=== PATIENT | male | born 1955 | race Caucasian/White ===

== ENCOUNTER 2019-07-29 08:45 | Inpatient (IN) | payer OTHER ==
[~2019-07-29] VITALS: Ht 177.8 cm; Wt 98.7 kg
[~2019-07-29 08:45] MED LIST: ASPI325 PO; ATOR40TA PO; INSULANPEN SC; METF500C PO; Plavix75 MG PO; SYNTHROID175 MCG PO
[2019-07-29 09:07] LABS: BASOPHILS ABSOLUTE AUTO 0.07 K/mm3 (0.00-0.23); BASOPHILS PERCENT AUTO 1 % (0-2); EOSINOPHILS ABSOLUTE AUTO 0.14 K/mm3 (0.00-0.68); EOSINOPHILS PERCENT AUTO 2 % (0-6); Hematocrit 42.8 % (37.0-53.0); Hemoglobin 14.1 g/dL (13.5-17.5); IMMATURE GRAN ABSOLUTE AUTO 0.02 K/mm3 (0.00-0.10); IMMATURE GRAN PERCENT AUTO 0 % (0-1); LYMPHOCYTES ABSOLUTE AUTO 1.18 K/mm3 (0.84-5.20); LYMPHOCYTES PERCENT AUTO 12 % (21-46); MONOCYTES ABSOLUTE AUTO 0.43 K/mm3 (0.16-1.47); MONOCYTES PERCENT AUTO 5 % (4-13); Mean Corpuscular HGB 29.1 pg (26.0-34.0); Mean Corpuscular HGB Conc 32.9 g/dL (31.5-36.5); Mean Corpuscular Volume 88 fL (80-100); Mean Platelet Volume 10.2 fL (9.1-12.4); NEUTROPHILS ABSOLUTE AUTO 7.69 K/mm3 (1.96-9.15); NEUTROPHILS PERCENT AUTO 81 % (41-73); Platelet Count 236 K/mm3 (150-400); RDW Coefficient Variation 13.2 % (11.7-14.2); RDW Standard Deviation 43.2 fL (35.1-46.3); Red Blood Cell Count 4.85 M/mm3 (4.30-5.90); White Blood Cell Count 9.53 K/mm3 (4.00-11.30)
[2019-07-29 09:27] LABS: Alanine Aminotransfer (ALT/SGP 45 U/L (12-78); Albumin, Blood 3.7 g/dL (3.4-5.0); Albumin/Globulin Ratio 1.1 (0.8-1.8); Alk Phos 118 U/L (50-136); Anion Gap 5 mmol/L (6-16); Aspartate Aminotrans (AST/SGOT 30 U/L (12-37); Bilirubin, Total 0.4 mg/dL (0.1-1.0); Blood Urea Nitrogen 19 mg/dL (8-24); Bun/Creatinine Ratio 19.8 (12.0-20.0); CO2, Blood 30 mmol/L (21-32); Calcium, Blood 8.9 mg/dL (8.5-10.1); Chloride, Blood 101 mmol/L (98-108); Creatinine, Blood 0.96 mg/dL (0.60-1.20); Globulin, Blood 3.5 g/dL (2.2-4.0); Glomerular Filtration Rate >60 (60-); Glucose, Blood 307 mg/dL (70-99); Potassium, Blood 3.9 mmol/L (3.5-5.5); Sodium, Blood 136 mmol/L (136-145); Total Protein, Blood 7.2 g/dL (6.4-8.2)
[2019-07-29] MEDS ORDERED: Vitamin D400 UNI2 PO (09:28)
[2019-07-29 09:41] LABS: Troponin I 0.568 ng/mL (0.000-0.040)
[2019-07-29 10:34] LABS: International Normalized Ratio 0.92; Prothrombin Time Results 9.8 Sec (9.7-11.5)
--- NOTE | 2019-07-29 13:30 | NUR ---
REPORT RECIEVED FROM [facility] RN. PT ARRIVED TO PCU 4 VIA BED WITH HEART CENTER STAFF AT BEDSIDE. PER REPORT PATIENT HAS MULTI VESSEL DISEASE AND WILL NEED TO BE COBRA TRANSFERRED TO [facility]. DR. DAILEY IS WORKING ON TRANSFER ORDERS AND WE HAVE DR. ALVARENGA AN ACCEPTING MD. PT IS ALERT AND OX3. PT DENIES PAIN AT THIS TIME. TELEMETRY PLACED. PT HAS RIGHT RADIAL SITE WITH TR BAND IN PLACE. PER REPORT 11 CC AIR IN THE BAND. SITE LOOKS GOOD. NO OOZING NOTED. CAP REFILL BRISK. GOOD PLETH. PT DENIES N/T. VSS. WILL CONTINUE TO MONITOR.
[2019-07-29 13:35] LABS: Cholesterol 297 mg/dL (50-200); HDL Cholesterol 33 mg/dL (>39); LDL/HDL RATIO Unable to Calculate; Low Density Lipoprotein Chol Unable to Calculate mg/dL (0-110); Triglycerides 849 mg/dL (30-160); Very Low Density Lipoprot Chol Unable to Calculate mg/dL (6-32)
[2019-07-29 13:47] LABS: LDL Direct Measurement 134 mg/dL (0-130)
--- NOTE | 2019-07-29 14:00 | NUR ---
TREE LOADER MEAT BILL AT THE BEDSIDE TO PERFORM ECHO. PTS ADMISSION HX AND MED REC COMPLETE. VSS. SITE REMAINS THE SAME. PT DENIES NEEDS AT THIS TIME. CALL LIGHT IN REACH, WILL CONTINUE TO MONITOR.
--- NOTE | 2019-07-29 14:40 | NUR ---
Echocardiogram completed.
--- NOTE | 2019-07-29 15:00 | NUR ---
CALL PLACED TO DR. DAILEY FOR CLARIFICATION ON THE HEP GTT. TELEPHONE ORDERS TO CONTINUE HEP GTT. CALL PLACED TO PHARMACY FOR CLARIFICATION. ORDERS TO CONTINUE HEP GTT AT CURRENT RATE. PHARMACY NOTIFIED HEP GTT WAS TURNED OFF AT 1200 IN THE ER PER REPORT. HEP GTT RESTARTED AT PER CURRENT ORDERS. SOME FAINT BRUISING NOTED TO RIGHT WRIST NEXT TO TR BAND. WILL CONTINUE TO MONITOR.
--- NOTE | 2019-07-29 16:30 | NUR ---
DR. DAILEY CALLED TO GET DIET ORDER. WOULD LIKE FOR HEPARIN GTT NOT TO BE STARTED UNTIL AN HOUR AFTER THE TR BAND WAS RECOVERED.
--- NOTE | 2019-07-29 18:01 | NUR ---
PT IS RESTING COMFORTABLY IN BED. THIS RN HAS REMOVED 6CC TOTAL FROM TR BAND. SITE REMAINS STABLE. I DEMARKATED THE BRUISED AREA PAST THE TR BAND, AND THE BRUSING HAS NOT EXTENDED. ROOM HAS BEEN ASSIGNED AND REPORT HAS BEEN GIVEN TO BRAYDEN SUMNER. TRANSPORT HAS BEEN SET UP. DISPATCH FROM [facility] GIVES AN ETA FOR THE AMBULANCE TO PICK THE PATIENT UP IN APPROX 25 MIN. TRANSFER PACKET COMPLETE. WILL CONTINUE TO MONITOR.
--- NOTE | 2019-07-29 18:20 | NUR ---
PATIENT TO [facility] VIA AMBULANCE WITH [facility]
== END 2019-07-29 18:20 | disposition short-term general hospital (02) | DRG 282 ==
LOC: ER 08:45 → PCU 10:25
PROVIDERS: Emergency Medicine; Nurse Practitioner Acute Care; Pharmacist; ADMIT Family Medicine
PROC: B2111ZZ Fluoroscopy of Multiple Coronary Arteries using Low Osmolar Contrast (ICD-10-PCS; principal; 2019-07-29)
PROC: B2151ZZ Fluoroscopy of Left Heart using Low Osmolar Contrast (ICD-10-PCS; 2019-07-29)
PROC: 4A023N7 Measurement of Cardiac Sampling and Pressure, Left Heart, Percutaneous Approach (ICD-10-PCS; 2019-07-29)
DX: I21.4 Non-ST elevation (NSTEMI) myocardial infarction (principal); Z79.4 Long term (current) use of insulin; Z87.891 Personal history of nicotine dependence; E78.5 Hyperlipidemia, unspecified; E03.9 Hypothyroidism, unspecified; Z86.73 Personal history of transient ischemic attack (TIA), and cerebral infarction without residual deficits; Z79.82 Long term (current) use of aspirin; Q82.8 Other specified congenital malformations of skin; E11.51 Type 2 diabetes mellitus with diabetic peripheral angiopathy without gangrene; Z85.51 Personal history of malignant neoplasm of bladder
CPT/HCPCS: 36415; 71046; 76937; 80053; 80061; 82947; 83690; 83721; 83880; 84484; 85025; 85347; 85610; 85730; 93005; 93010; 93306; 93458; 96365; 96375; 99152; 99153; 99285-25; C1769; C1894; J0360; J1644; J2250; J3010; J7030; Q9967

== ENCOUNTER 2019-08-03 03:38 | Observation (INO) | payer OTHER ==
[~2019-08-03] VITALS: Ht 177.8 cm; Wt 95.2 kg
[~2019-08-03 03:38] MED LIST changes: +Vitamin D400 UNI2 PO
[2019-08-03 04:00] LABS: BASOPHILS ABSOLUTE AUTO 0.02 K/mm3 (0.00-0.23); BASOPHILS PERCENT AUTO 0 % (0-2); EOSINOPHILS ABSOLUTE AUTO 0.12 K/mm3 (0.00-0.68); EOSINOPHILS PERCENT AUTO 1 % (0-6); Hematocrit 40.6 % (37.0-53.0); Hemoglobin 13.2 g/dL (13.5-17.5); IMMATURE GRAN ABSOLUTE AUTO 0.02 K/mm3 (0.00-0.10); IMMATURE GRAN PERCENT AUTO 0 % (0-1); LYMPHOCYTES ABSOLUTE AUTO 0.86 K/mm3 (0.84-5.20); LYMPHOCYTES PERCENT AUTO 8 % (21-46); MONOCYTES ABSOLUTE AUTO 0.82 K/mm3 (0.16-1.47); MONOCYTES PERCENT AUTO 8 % (4-13); Mean Corpuscular HGB 28.7 pg (26.0-34.0); Mean Corpuscular HGB Conc 32.5 g/dL (31.5-36.5); Mean Corpuscular Volume 88 fL (80-100); NEUTROPHILS ABSOLUTE AUTO 8.75 K/mm3 (1.96-9.15); NEUTROPHILS PERCENT AUTO 83 % (41-73); Platelet Count 199 K/mm3 (150-400); RDW Coefficient Variation 13.6 % (11.7-14.2); White Blood Cell Count 10.59 K/mm3 (4.00-11.30)
[2019-08-03 04:24] LABS: Alanine Aminotransfer (ALT/SGP 57 U/L (12-78); Albumin, Blood 3.5 g/dL (3.4-5.0); Alk Phos 99 U/L (50-136); Anion Gap 8 mmol/L (6-16); Aspartate Aminotrans (AST/SGOT 89 U/L (12-37); Bilirubin, Total 0.9 mg/dL (0.1-1.0); Blood Urea Nitrogen 15 mg/dL (8-24); Bun/Creatinine Ratio 15.6 (12.0-20.0); CO2, Blood 24 mmol/L (21-32); Calcium, Blood 8.7 mg/dL (8.5-10.1); Chloride, Blood 105 mmol/L (98-108); Creatinine, Blood 0.96 mg/dL (0.60-1.20); Globulin, Blood 3.6 g/dL (2.2-4.0); Glomerular Filtration Rate >60 (60-); Glucose, Blood 278 mg/dL (70-99); Potassium, Blood 3.8 mmol/L (3.5-5.5); Sodium, Blood 137 mmol/L (136-145); Total Protein, Blood 7.1 g/dL (6.4-8.2)
[2019-08-03 05:24] LABS: International Normalized Ratio 0.96; Prothrombin Time Results 10.2 Sec (9.7-11.5)
[2019-08-03 08:23] LABS: Creatine Kinase MB Index 2.3 (0.0-4.0)
--- NOTE | 2019-08-03 09:05 | NUR ---
CARE ASSUMED CARE ASSUMED FROM ISABEL HIGGINBOTHAM RN. PT SITTING UP IN BED. C/O CENTRAL STERNAL CHEST PAIN 6/10 THAT WORSENS WITH MOVEMENT AND INSPIRATION. NSR, HR 70S. BP STABLE WITH MAP 70-80. LUNG SOUNDS CLEAR. MD SWANSON NOTIFIED ABOUT PAIN AND ORDER TO ADMINISTER FENTANYL GIVEN; MED GIVEN AND PAIN SLIGHTLY IMPROVED. MD DAILEY TO BEDSIDE AROUND 0830. ASA DOSE INCREASED AND GIVEN. HEPARIN GTT DISCONTINUED AFTER ADMINISTERING AM MEDS INCLUDING PLAVIX. LABS DRAWN AND PENDING AT THIS TIME. ECHO ORDERED; AWAITING TEST. R RADIAL SITE CLEAN AND DRY. AFEBRILE. WILL CONTINUE TO MONITOR.
[2019-08-03 09:17] LABS: C-Reactive Protein, High Sens. 42.9 mg/L (0.000-3.000); Troponin I 15.4 ng/mL (0.000-0.040)
--- NOTE | 2019-08-03 10:31 | NUR ---
PAIN PT REPORTS THAT PAIN HAS SLIGHTLY IMPROVED AND HE IS ABLE TO BREATHE A BIT EASIER. VSS. REMAINS IN NSR, HR 70S. AWAITING ECHO. EKG BEING COMPLETED AT THIS TIME. HEPARIN GTT DISCONTINUED PER ORDERS. CALL LIGHT WITHIN REACH. WILL CONTINUE TO MONITOR.
--- NOTE | 2019-08-03 11:45 | NUR ---
REASSESSMENT PT STATES CHEST PAIN HAS IMPROVED TO 3/10. HE IS LYING COMFORTABLY WITH HOB ELEVATED TO 25 DEGREES. ABLE TO ADJUST SELF IN BED. TALKING WITH SISTER. VSS. AWAITING PCU BED AT THIS TIME. WILL CONTINUE TO MONITOR.
--- NOTE | 2019-08-03 14:12 | NUR ---
Echocardiogram completed.
--- NOTE | 2019-08-03 17:00 | NUR ---
REASSESSMENT PT SLEPT DURING AFTERNOON. NOW C/O ACID REFLUX; PROTONIX PO GIVEN. STATES CHEST PAIN IS 2/10 AND HAS IMPROVED GREATLY SINCE THIS AM. VSS. REMAINS IN NSR, HR 70S. AWIATING PCU BED. WILL CONTINUE TO MONITOR AND GIVE BEDSIDE, HANDOFF REPORT TO NOC RN.
--- NOTE | 2019-08-03 19:47 | NUR ---
ASSUMED CARE OF PT AT 1915. REPORT RECEIVED AT BEDSIDE. PT ALERT AND ORIENTED. PLEASANT AND COOPERATIVE WITH CARE AND ASSESSMENT. PT STATES HE ONLY IS HAVING CHEST DISCOMFORT WITH DEEP INSPIRATIONS, AND THAT HE IS FEELING BETTER THAN WHEN HE FIRST CAME TO HOSPITAL. WILL REVIEW CHART AND PLAN OF CARE FOR THIS PT.
[2019-08-03] MEDS ORDERED: MELATONIN5 M1 PO (21:33)
--- NOTE | 2019-08-03 22:23 | NUR ---
UPDATED PT'S HOME MEDICATION REC. PT DOES REQUEST SOME MELATONIN TO ASSIST WIT SLEEP. CALL MADE TO DACIA KNOX WHEREAS ORDER RECEIVED. PT MEDICATED WITH HIS HOME DOSAGE OF MELATONIN. WILL CONTINUE TO MONITOR PT. HAVE NOTED PT CONTINUES WITH INVERTED T WAVES PER MONITOR. THIS UNCHANGED FROM LIZ SUMNER'S REPORT.
--- NOTE | 2019-08-04 05:47 | NUR ---
PT HAS HAD RESTFUL NIGHT. DENIES CHEST PAIN OR PRESSURE OTHER THAN WITH DEEP INSPIRATION. PT DOES HAVE SINUS JAMIN WHILE ASLEEP, CONTINUES WITH INVERTED T WAVE. WILL CONTINUE TO MONITOR PT, AND WILL REPORT OFF TO ONCIMING RN.
--- NOTE | 2019-08-04 07:30 | NUR ---
START OF SHIFT NOTE: RECEIVED REPORT FROM ELAINE BUCHANAN RN, ASSUMED CARE, PATIENT IS AWAKE, ALERT AND ORIENTED, LUNG SOUNDS DIMINISHED IN ALL LOBES BUT CLEAR ON THE RIGHT, SLIGHT RHONCHI NOTED ON THE LEFT WITH SOME EXPIRATORY WHEEZES THAT DISSIPATE WHEN PATIENT COUGHS, VSS, AFEBRILE, PATIENT REPORTS NO PAIN EXCEPT WHEN TAKING DEEP BREATHS, SR/SB, WITH HR IN UPPER 50'S, BOWEL TONES PRESENT, PATIENT USES URINAL APPROPRIATELY, PEDAL PULSES PALPABLE, DR. DAILEY IN TO SEE PATIENT, STATUS CHANGE TO MEDICAL WITH TELE, CALL LIGHT IN REACH, WILL CONTINUE TO MONITOR.
--- NOTE | 2019-08-04 08:33 | NUR ---
DR. SWANSON IN TO SEE PATIENT, NO NEW ORDERS RECEIVED.
--- NOTE | 2019-08-04 08:56 | NUR ---
PATIENT TOOK AM MEDS WELL WITH WATER, NO PROBLEM SWALLOWING, SITTING UP IN BED, VISITOR AT BEDSIDE, CALL LIGHT IN REACH, WILL CONTINUE TO MONITOR.
--- NOTE | 2019-08-04 11:22 | NUR ---
PATIENT IS RESTING COMFORTABLY WITH EYES CLOSED, NO S/S OF DISTRESS/DISCOMFORT, CALL LIGHT IN REACH, WILL CONTINUE TO MONITOR.
--- NOTE | 2019-08-04 13:50 | NUR ---
DIETARY IN TO SEE PATIENT, WILL CONTINUE TO MONITOR.
--- NOTE | 2019-08-04 15:39 | NUR ---
Assumed care of patient Received report from Nely. Patient transferred from ICU and arrived via w/c. Transferred independently from w/c to bed, independent in room. A/Ox4. Oriented to call light system. Continent and uses urinal @ bedside.
--- NOTE | 2019-08-04 15:42 | NUR ---
REPORT CALLED TO TAISHA REN, PATIENT TO BE TRANSFERRED TO ROOM 333 VIA WHEELCHAIR.
--- NOTE | 2019-08-04 17:59 | NUR ---
Shift Summary A/Ox4. Pt transferred from ICU. Independent in room, able to make needs known, calls appropriately, urinal at bedside. No c/o pain. Denies N/V/D. Denies sob and chest pain. Pt is possible d/c tomorrow. VSS, afebrile. No other acute changes this shift.
--- NOTE | 2019-08-05 06:23 | NUR ---
SHIFT SUMMARY: 64 Y/O MALE RESTED COMFORTABLY ALL SHIFT, TELEMETRY REFLECTS NSR WIT HEART RATE 60, DENIES DYSPNEA, PAIN OR NAUSEA, BED LOW POSITION, CALL LIGHT AT SIDE.
--- NOTE | 2019-08-05 10:04 | NUR ---
SPOKE WITH PHYSICIAN REGARDING PATIENT PULSE CONSISTENTLY <60. STATES HE WILL MAKE MED ADJUSTMENTS.
[2019-08-05] MEDS ORDERED: CLOP75 PO (11:07)
[2019-08-05] MEDS ORDERED: Humalog100 UNIT/1 SC (11:08)
[2019-08-05] MEDS ORDERED: NITR.4SL SL (11:09)
[2019-08-05] MEDS ORDERED: METO25 PO (11:09)
[2019-08-05] MEDS ORDERED: PANT40 PO (11:10)
--- NOTE | 2019-08-05 12:41 | NUR ---
patient discharged with . PRESCRIPTIONS FAXED TO BOTH IN AND [facility] PER PATIENT REQUEST. FOLLOW UP APPOINTMENTS SCHEDULED BY KATY BAILEY IN DISCHARGE PLANNING. SLIDING SCALE INSULING SHEET PROVIDED. PATIENT HAD NO FURTHER QUESTIONS. IV'S REMOVED.
== END 2019-08-05 12:40 | disposition home or self-care (01) ==
LOC: ER 03:38 → ICUW 03:39 → ER 06:17 → ICUW 06:17 → MEDS 08-04 15:34 → ENPENDDIS 08-05 11:12 → MEDS 08-05 12:40
PROVIDERS: Emergency Medicine; Internal Medicine Interventional Cardiology; ADMIT Hospitalist
DX: I31.9 Disease of pericardium, unspecified (principal); I21.4 Non-ST elevation (NSTEMI) myocardial infarction; I24.9 Acute ischemic heart disease, unspecified; E11.51 Type 2 diabetes mellitus with diabetic peripheral angiopathy without gangrene; I73.9 Peripheral vascular disease, unspecified; I10 Essential (primary) hypertension; E03.9 Hypothyroidism, unspecified; Z79.4 Long term (current) use of insulin; Z95.5 Presence of coronary angioplasty implant and graft; E78.5 Hyperlipidemia, unspecified; Z87.891 Personal history of nicotine dependence; Z79.899 Other long term (current) drug therapy; Z79.82 Long term (current) use of aspirin
CPT/HCPCS: 36415; 71046; 80053; 82550; 82553; 82947; 83036; 84484; 85025; 85610; 85651; 85730; 86141; 93005; 93010; 93308; 93321; 96365; 96366; 96375; 96376; 99285-25; G0378; J1644; J2270; J2405; J3010

== ENCOUNTER 2020-06-20 06:10 | Day surgery (SDC) | payer OTHER ==
[~2020-06-20] VITALS: Ht 180.3 cm; Wt 88.0 kg
[~2020-06-20 06:10] MED LIST changes: +Aspirin EC81 MG PO; +BASAGLAR K100 UNIT/1 SC; +CLOP75 PO; +ERGO400 PO; +Humalog100 UNIT/1 SC; -INSULANPEN SC; +LISI5 PO; +MELATONIN5 M1 PO; +METO25 PO; +NITR.4SL SL; +NOVOLOG FL100 UNIT/3 SC; +PANT40 PO; -Vitamin D400 UNI2 PO; +[UNRECOGNIZED DRUG - OTHER]
[2020-06-20] MEDS ORDERED: XARELTO2.5 M1 PO (11:50)
--- NOTE | 2020-06-20 14:30 | NUR ---
DISCHARGE PT AMBUALTED AND DRESSED SELF WITH NO COMPLICATIONS. PTS R FEMORAL SITE HAS NO BLEEDING, OOZING OR HEMATOMA. LT PT SITE ALSO WITH NO BLEEDING, OOZING OR HEMATOMA. PT STATES HIS UNDERSTANDIN OF DC AND SITE CARE INSTRUCTIONS AND DENIES ANY QUESTIONS OR CONCERNS. VSS. IV DCD WITH CATH INTACT. PT TAKEN TO EXIT VIA WHEELCHAIR WHERE FAMILY WAS WAITING WITH CAR.
== END 2020-06-20 14:48 | disposition home or self-care (01) ==
LOC: MHTC 06:10
DX: E11.51 Type 2 diabetes mellitus with diabetic peripheral angiopathy without gangrene (principal); I70.223 Atherosclerosis of native arteries of extremities with rest pain, bilateral legs; I10 Essential (primary) hypertension; E78.5 Hyperlipidemia, unspecified; E03.9 Hypothyroidism, unspecified; K21.9 Gastro-esophageal reflux disease without esophagitis; Z87.891 Personal history of nicotine dependence; Z79.4 Long term (current) use of insulin; Z79.899 Other long term (current) drug therapy; Z79.02 Long term (current) use of antithrombotics/antiplatelets
CPT/HCPCS: 82947; 85347; 99152; 99153; C1725; C1760; C1769; C1874; C1885; C1887; C1894; J1644; J2250; J3010; J7030; J7040; J7042; J7050; Q9967

== ENCOUNTER 2020-07-28 17:46 | Inpatient (IN) | payer OTHER ==
[~2020-07-28] VITALS: Ht 177.8 cm; Wt 84.5 kg
[~2020-07-28 17:46] MED LIST changes: +ACET325 PO; +GABA300 PO; +Norco 5-325 Ta1 EACH PO; +XARELTO2.5 M1 PO; +XARELTO20 MG PO
[2020-07-28 18:27] LABS: BASOPHILS ABSOLUTE AUTO 0.07 K/mm3 (0.00-0.23); BASOPHILS PERCENT AUTO 1 % (0-2); EOSINOPHILS ABSOLUTE AUTO 0.13 K/mm3 (0.00-0.68); EOSINOPHILS PERCENT AUTO 1 % (0-6); Hematocrit 37.2 % (37.0-53.0); Hemoglobin 11.8 g/dL (13.5-17.5); IMMATURE GRAN ABSOLUTE AUTO 0.04 K/mm3 (0.00-0.10); IMMATURE GRAN PERCENT AUTO 0 % (0-1); LYMPHOCYTES ABSOLUTE AUTO 1.32 K/mm3 (0.84-5.20); LYMPHOCYTES PERCENT AUTO 12 % (21-46); MONOCYTES ABSOLUTE AUTO 0.63 K/mm3 (0.16-1.47); MONOCYTES PERCENT AUTO 6 % (4-13); Mean Corpuscular HGB 26.9 pg (26.0-34.0); Mean Corpuscular HGB Conc 31.7 g/dL (31.5-36.5); Mean Corpuscular Volume 85 fL (80-100); Mean Platelet Volume 9.6 fL (9.1-12.4); NEUTROPHILS ABSOLUTE AUTO 9.23 K/mm3 (1.96-9.15); NEUTROPHILS PERCENT AUTO 81 % (41-73); Platelet Count 422 K/mm3 (150-400); RDW Coefficient Variation 14.1 % (11.7-14.2); RDW Standard Deviation 43.5 fL (35.1-46.3); Red Blood Cell Count 4.39 M/mm3 (4.30-5.90); White Blood Cell Count 11.42 K/mm3 (4.00-11.30)
[2020-07-28 18:46] LABS: Alanine Aminotransfer (ALT/SGP 19 U/L (12-78); Albumin, Blood 3.4 g/dL (3.4-5.0); Albumin/Globulin Ratio 0.7 (0.8-1.8); Alk Phos 106 U/L (50-136); Anion Gap 12 mmol/L (6-16); Aspartate Aminotrans (AST/SGOT 13 U/L (12-37); Bilirubin, Total 0.8 mg/dL (0.1-1.0); Blood Urea Nitrogen 29 mg/dL (8-24); Bun/Creatinine Ratio 25.7 (12.0-20.0); CO2, Blood 23 mmol/L (21-32); Calcium, Blood 9.6 mg/dL (8.5-10.1); Chloride, Blood 103 mmol/L (98-108); Creatinine, Blood 1.13 mg/dL (0.60-1.20); Globulin, Blood 4.7 g/dL (2.2-4.0); Glomerular Filtration Rate >60 (60-); Glucose, Blood 269 mg/dL (70-99); Potassium, Blood 4.1 mmol/L (3.5-5.5); Sodium, Blood 138 mmol/L (136-145); Total Protein, Blood 8.1 g/dL (6.4-8.2)
[2020-07-28] MEDS ORDERED: HYDROCODON-ACET15 ML (21:10)
[2020-07-28 21:31] LABS: International Normalized Ratio 1.03
--- NOTE | 2020-07-29 01:57 | NUR ---
ADMIT NOTE PT ARRIVED TO PCU FROM ED VIA STRETCHER. PT AMBULATED FROM ED STRETCHER TO PCU BED INDEPENDENTLY. PT A&O X4, ANSWERS QUESTIONS APPROPRIATELY, A GOOD HISTORIAN. SP02>94% ON RA, LUNGS CLEAR. TELEMETRY READS SINUS JAMIN W/ BBB, HR 50'S. PT L FOOT/L ANKLE WAS VERY RED UPON ADMISSION. PT'S R BIG TOE IS BLACK. DURING DOPPLER ASSESSMENT TO FIND PULSES, COLOR CHANGED ON L FOOT TO MOTTLED. DOPPLER NEEDED FOR BOTH FEET TO LOCATE PULSES. MARKED LOCATED PULSES WITH SKIN MARKER. PT STATES R BIG TOE FEELS CONTINUOUSLY "THROBBING. WOW, WOW, WOW". PT DESCRIBED THE FOOT/ANKLE "NEW SKIN, SHARP, STABBING, TINGLING". PT STATES 10/10 PAIN. BROUGHT THIS TO MD GREEN ATTENTION, WHO VERBALLY PRESCRIBED THE PT FENTANYL. ADMINISTERED PER EMAR. PT STATED RELIEF WITH 4/10. PT STATED, "ILL BE ABLE TO SLEEP NOW." HEPARIN DRIP INFUSING PER EMAR. ANTIBIOTICS INFUSING PER EMAR. PT AMBULATED TO BATHROOM WITH MINIMAL ASSISTANCE. CALL LIGHT W/IN REACH. WILL CONTINUE TO MONITOR. PAIN.
[2020-07-29 04:39] LABS: Hematocrit 34.1 % (37.0-53.0); Mean Corpuscular HGB 27.2 pg (26.0-34.0); Mean Corpuscular HGB Conc 32.3 g/dL (31.5-36.5); Mean Corpuscular Volume 84 fL (80-100); Mean Platelet Volume 9.8 fL (9.1-12.4); Platelet Count 329 K/mm3 (150-400); RDW Coefficient Variation 14.3 % (11.7-14.2); RDW Standard Deviation 43.8 fL (35.1-46.3); Red Blood Cell Count 4.05 M/mm3 (4.30-5.90); White Blood Cell Count 10.09 K/mm3 (4.00-11.30)
--- NOTE | 2020-07-29 06:27 | NUR ---
SHIFT SUMMARY PT ARRIVED TO PCU FROM ED THIS SHIFT, SEE ADMIT NOTE. PT A&OX4, A GOOD HISTORIAN. SP02>94% ON RA. TELEMETRY READS SB W/ BBB, HR 45-50'S. PT L BIG TOE IS BLACK. PT L FOOT/ANKLE IS MOTTLED, THOUGH IT WAS BRIGHT RED UPON ARRIVAL. PT STATES IT DOES CHANGE COLORS OFTEN. SEE PICTURES IN CHART. PT C/O OF 10/10 PAIN, L TOE "THROBBING" AND L FOOT "STABBING, BURNING". MEDICATED WITH FENTANYL PER EMAR. DOPPLER TO LOCATE L PEDAL PULSE. HEPARIN DRIP INFUSING PER EMAR. PT SBA TO BATHROOM TWICE THIS SHIFT. WILL CONTINUE TO MONITOR.
--- NOTE | 2020-07-29 10:30 | NUR ---
ASSUME CARE THIS AM: PT IN BED UPON RECEIVING REPORT FROM WILBERTO RN WITH HEPARIN GTT RUNNING AT 14U/KG/HR. PT IS HERE FOR LEFT LEG ISCHEMIA. PT IS ALERT AND ORIENTED, VITALS HRR SINUS JAMIN 40-50'S METOPROLOL HELD THIS AM, BP SYSTOLIC 130'S, SATS ABOVE 95% ON RA, AFEBRILE. PT IS FOR POSSIBLE THROMBECTOMY PROCEDURE THIS AFTERNOON DR NORRIS IS CONSULTED. DR NORRIS OKAY FOR PT TO EAT BREAKFAST THEN NPO UNTIL THE PROCEDURE. NO OTHER CONCERN AT THIS TIME, PT HAS PODIATRY CONSULT NEXT AVAILABLE INVERTER AND CLIPPER IS NOT TIL 18TH PER CN, DR MEDINA IS MADE AWARE. PT IS NOW RESTING IN BED CALL LIGHTS IN REACH WILL MONITOR
--- NOTE | 2020-07-29 16:32 | NUR ---
PT CURRENTLY TAKEN TO CEMENT FINISHING SUPERVISOR FOR THROMOLYSIS/THROMBECTOMY PROCEDURE
--- NOTE | 2020-07-29 17:41 | NUR ---
PT IN RECOVERY ROOM POST L LEG CRITICAL LIMB CATH. TPA GTT AND HEP GTT STARTED PER ORDER FROM DR NORRIS. TPA X 2 AT 1MG/HR EACH INTO R GROIN SHEATH/CATHETER. HEPARIN 300U/HR IV INTO L AC. WILL TRANSFER AND GIVE REPORT TO ICU 3 SHORTLY, VSS, PT SUPINE, A&OX3, BREATHING UNLABORED, HR 40'S AND 50'S BUT STABLE AND RESPONDING APPROPRIATE.
--- NOTE | 2020-07-29 18:32 | NUR ---
TRANSFER FROM CHEMICAL ENGRAVER PT ARRIVED TO ICU 3 AT 1750 VIA BED. PT S/P PERIPHERAL INTERVENTION IN CHEMICAL ENGRAVER. PT IS AWAKE, ALERT, AND ORIENTED. PT IS CALM AND PLEASANT. PT SLID TO ICU BED. PT IS LAYING SUPINE. RIGHT FEMORAL ARTERIAL SHEATH IN PLACE WITH TWO PORTS. TPA INFUSING AT 1 MG/HR INTO EACH SHEATH PORT, FOR A TOTAL OF 2 MG/HR TPA. HEPARIN INFUSING AT 6 ML/HR INTO PERIPHERAL IV, NOT TO BE TITRATED. VITAL SIGNS STABLE. PT ON ROOM AIR. PT WITH STRONG RADIAL PULSES. RIGHT PEDAL PULSE STRONG WITH DOPPLER. LEFT PEDAL PULSE IRRADIC AND COMES AND GOES WITH DOPPLER. LEFT FOOT MOTTLED AND COOL. LEFT GREAT TOE GANGRENOUS. SEE PHOTOS IN CHART. REINFORCED WITH PT THE NEED TO REMAIN SUPINE. PT VERBALIZED UNDERSTANDING OF RISKS WITH ANY HIP FLEXION. PLAN FOR PT TO RETURN TO CHEMICAL ENGRAVER TOMORROW MID DAY. WILL CONTINUE TO MONITOR AND REPORT OFF TO ONCOMING RN.
--- NOTE | 2020-07-29 19:30 | NUR ---
PATIENT A&O X3 C/O BURNING PAIN TO LEFT FOOT AND TOES. PEDAL PULSES WITH DOPPLER LEFT FOOT CONTINUES TO HAVE POOR CAP REFILL . RIGHT GROIN SITE SHEATH IN PLACE WITH TPA INFUSING 1 MG/HR TO BOTH PORTS. HEPARIN DRIP INFUSING AT SET RATE OF 6 CC/HR. PATIENT JD PO WELL, GIVEN 1/2 SANDWICH FOR DINNER DENIES WANTING MORE TO EAT AT THIS TIME.
--- NOTE | 2020-07-29 23:06 | NUR ---
DOCTOR ALTAGRACIA NOTIFIED OF HYPOTENSION WHILE PATIENT SLEEPING. ORDER OBTAINED FOR NS BOLUS AND NS @ 125/HR.
--- NOTE | 2020-07-30 06:12 | NUR ---
PATIENT UNABLE TO VOID LAYING FLAT, ATTEMPT TO LAY ON SIDE TO VOID WITH NO RESULTS. BLADDER SCAN SHOWING 625 CC. PATIENT NOT WANTING LEI BUT NOW AGREEING FOR ONE TO BE PLACED AND REMOVED WHEN HE IS ABLE TO GET UP OUT OF BED WHICH WILL NOT BE UNTIL LATE TODAY.
--- NOTE | 2020-07-30 07:00 | NUR ---
SUMMARY PATIENT CONTINUES WITH SHEATH TO RIGHT GROIN WITH ALTEPLASE (TPA) INFUSING AT 0.5 MG/HR. GROIN SITE HAS REMAINED STABLE T/O THE NIGHT. HEPARIN DRIP CONTINUES. PATIENT C/O BURNING AND STABBING PAIN TO LEFT CALF AND FOOT THIS MORNING, GOOD PAIN RELIEF WITH OXYCONTIN, AND DILAUDID FOR BREAK THROUGH PAIN. PATIENT HYPOTENSIVE WHEN PAIN FREE, AWAKENS EASILY AND REMAINS ORIENTED X3. REPOSITIONING WITH LOG ROLE SIDE TO SIDE TO HELP WITH COMFORT. PATIENT DOING WELL WITH KEEPING LEGS STRAIGHT AND NOT FLEXING GROIN AREA. PATIENT UNABLE TO VOID LAYING FLAT, LEI CATH PACED DRAINING CLEAR YELLOW URINE. PLAN TO GO BACK TO CONTINUOUS MINING OPERATOR THIS AFTER NOON
[2020-07-30 07:32] LABS: Anion Gap 7 mmol/L (6-16); Blood Urea Nitrogen 16 mg/dL (8-24); Bun/Creatinine Ratio 18.5 (12.0-20.0); CO2, Blood 24 mmol/L (21-32); Calcium, Blood 8.3 mg/dL (8.5-10.1); Chloride, Blood 113 mmol/L (98-108); Creatinine, Blood 0.86 mg/dL (0.60-1.20); Glomerular Filtration Rate >60 (60-); Glucose, Blood 84 mg/dL (70-99); Potassium, Blood 3.7 mmol/L (3.5-5.5); Sodium, Blood 144 mmol/L (136-145)
--- NOTE | 2020-07-30 08:47 | NUR ---
ASSUMED CARE OF PT AT 0700. REPORT FROM ISABEL SUMNER. PT RESTING IN BED. C/O 10/ PAIN TO LEFT LEG/FOOT. PT c ARTERIAL SHEATH TO RIGHT GROIN, INFUSING TPA TO TWO PORTS AT 0.5 MG/HR. HEPARIN INFUSING PERIPHERALLY AT 6 ML/HR. LEFT FOOT COOL, DUSKY, DELAYED CAP REFILL. BLACK TISSUE TO LEFT GREAT TOE. UNABLE TO DOPPLER PULSES. PT HAS INTERMITTANT EPISODES OF PAIN CAUSING HIM TO BE RESTLESS IN BED. ENCOURAGED PT TO REMAIN SUPINE. LUNGS CLEAR. VSS. LEI PATENT AND DRAINING TO GRAVITY. WILL CONTINUE TO MONITOR.
--- NOTE | 2020-07-30 18:13 | NUR ---
SHIFT SUMMARY PT c TPA TRANFUSING THROUGH ARTERIAL SHEATH IN RIGHT GROIN UNTIL TAKEN TO PRODUCTION COST ESTIMATOR AT 1500. AT THAT TIME, SLIGHT SWELLING AROUND SHEATH, PT DENIES PAIN OR TENDERNESS. BOUNDARIES MARKED, SITE VERIFIED c HEART CENTER RN. PT RETURNS TO ICU AT 1750. FEM STOP IN PLACE TO RIGHT GROIN. DOPPLER PULSES BILATERALLY TO FEET. BOTH FEET COOL. PT DENIES PAIN UNLESS LEFT FOOT IS TOUCHED. VSS. HEPARIN TO BE RESUMED ONE HOUR POST HEMOSTASIS. WILL CONTINUE TO MONITOR UNTIL REPORT TO ONCOMING NURSE.
--- NOTE | 2020-07-30 18:20 | NUR ---
FEM STOP COMPLETELY DEFLATED. LEFT IN PLACE FOR PRESSURE. NO ACTIVE BLEEDING.
--- NOTE | 2020-07-30 20:36 | NUR ---
PATIENT HAD OOZING FROM RIGHT GROIN SITE WITH SMALL HEMATOMA EXPRESSED AND SOFTENED WITH DIRECT PRESSURE, MIGUEL DRESSING PLACED WITH OCCLUSIVE DRESSING AND FEMSTOP REPLACED WITH NO ADDED PRESSURE AT 1920, DRESSING HAS A SMALL AMT OF RED DRAINAGE CONTAINED IN THE MIGUEL AND REMAINS SOFT AROUND FEMSTOP. PATIENT AWAKE C/O PAIN TO LEFT FOOT MOSTLY IN HEAL AND TOP OF HIS TOES. PEDAL PULSES REMAIN DOPPLER YET ARE EASIER TO FIND. LEFT FOOT REMAINS DUSKY, RIGHT FOOT PALE.
[2020-07-31 04:09] LABS: BASOPHILS ABSOLUTE AUTO 0.04 K/mm3 (0.00-0.23); BASOPHILS PERCENT AUTO 1 % (0-2); EOSINOPHILS PERCENT AUTO 3 % (0-6); Hematocrit 28.3 % (37.0-53.0); Hemoglobin 8.6 g/dL (13.5-17.5); IMMATURE GRAN ABSOLUTE AUTO 0.02 K/mm3 (0.00-0.10); IMMATURE GRAN PERCENT AUTO 0 % (0-1); LYMPHOCYTES ABSOLUTE AUTO 1.09 K/mm3 (0.84-5.20); LYMPHOCYTES PERCENT AUTO 15 % (21-46); MONOCYTES ABSOLUTE AUTO 0.45 K/mm3 (0.16-1.47); MONOCYTES PERCENT AUTO 6 % (4-13); Mean Corpuscular HGB 26.9 pg (26.0-34.0); Mean Corpuscular HGB Conc 30.4 g/dL (31.5-36.5); Mean Corpuscular Volume 88 fL (80-100); Mean Platelet Volume 9.4 fL (9.1-12.4); NEUTROPHILS ABSOLUTE AUTO 5.33 K/mm3 (1.96-9.15); NEUTROPHILS PERCENT AUTO 75 % (41-73); Platelet Count 188 K/mm3 (150-400); RDW Coefficient Variation 14.5 % (11.7-14.2); RDW Standard Deviation 46.7 fL (35.1-46.3); White Blood Cell Count 7.13 K/mm3 (4.00-11.30)
[2020-07-31 04:35] LABS: Albumin, Blood 2.4 g/dL (3.4-5.0); Anion Gap 6 mmol/L (6-16); Blood Urea Nitrogen 9 mg/dL (8-24); Bun/Creatinine Ratio 11.3 (12.0-20.0); CO2, Blood 24 mmol/L (21-32); Calcium, Blood 8.1 mg/dL (8.5-10.1); Chloride, Blood 111 mmol/L (98-108); Glomerular Filtration Rate >60 (60-); Glucose, Blood 128 mg/dL (70-99); Phosphorus, Blood 2.4 mg/dL (2.5-4.9); Potassium, Blood 3.6 mmol/L (3.5-5.5); Sodium, Blood 141 mmol/L (136-145)
--- NOTE | 2020-07-31 05:49 | NUR ---
SUMMARY PATIENT SLEEPING OFF AND ON T/O NIGHT. MEDICATED WITH ROXICODONE AND DILAUDID FOR PAIN CONTROL TO PATIENTS LEFT FOOT AND TOES. RIGHT GROIN SITE REMAINS SOFT WITH NO FURTHER OOZING. PATIENT REPOSITIONING SELF IN BED FOR COMFORT. HEPARIN DRIP CONTINUES MANAGED BY PHARMACY. PATIENT HIT SCAB THAT WAS ON HIS NOSE WITH HIS GLASSES MAKING IT BLEED SLIGHTLY, FOAM DRESSING PLACED TO NOSE.
--- NOTE | 2020-07-31 12:09 | NUR ---
REASSESSMENT PT SPENT MOST OF THE MORNING SITTING UP IN THE CHAIR BEFORE HIS FOOT STARTED TO HURT TOO MUCH. PAIN MEDICATION GIVEN AND PT ASSISTED BACK TO BED AND L FOOT ELEVATED. PT'S GROIN SITE REMAINED C/D/I WITH THE ACTIVITY. SINCE PT WAS ABLE TO GET UP WITHOUT DIFFICULTY QUIQUE DC'D PER PROTOCOL. PT'S LUNGS REMAIN CLEAR, RA. SR, BP STABLE. PT GOT NAUSEOUS AFTER EATING BREAKFAST, WHICH HE STATES IS NOT ABNORMAL FOR HIM. NAUSEA MEDICATION GIVEN AND NAUSEA RESOLVED. L FOOT IS FLUSHED, 1+ EDEMA AFTER SITTING UP IN THE CHAIR WITH IT DEPENDENT. PULSES VIA DOPPLER. PT CALLED HIS CLINIC AT THE ID AND HE HAS AN APPOINTMENT WITH PODIATRY ALREADY SCHEDULED FOR THIS THURSDAY. DR. MEIDNA STATED SHE PLANS TO DISCHARGE PT TODAY. WAITING ON ORDERS. CONTINUING TO MONITOR.
[2020-07-31] MEDS ORDERED: OXYC10TA19 PO (13:17)
--- NOTE | 2020-07-31 14:10 | NUR ---
DISCHARGE PT DISCHARGED TO HOME VIA PRIVATE VEHICLE WITH HIS BROTHER. PT HAS FOLLOW UP APPTS SCHEDULED WITH [facility] ON THURSDAY, JR ON 08/13 AND THE [facility] WAS CALLING TO SCHEDULE PCP APPT FOR HIM WHEN DISCHARGE INSTRUCTIONS WERE BEING GIVEN. PT GIVEN DC INSTRUCTIONS REGARDING MEDICATIONS, EDUCATED NOT TO TAKE OTHER NSAIDS WHILE TAKING ASPIRIN AND XARELTO, ACTIVITY RESTRICTIONS, AND FOLLOW UP APPOINTMENTS REVIEWED. PT VERBALIZED UNDERSTANDING. ALL QUESTIONS ANSWERED. ALL BELONGINGS SENT HOME WITH PT.
--- NOTE | 2020-08-03 11:47 | NUR ---
DISCHARGE MEDICATIONS RECEIVED CALL FROM [facility] STATING PT HAD BEEN DISCHARGED WITH PRESCRIPTIONS CALLED IN TO [facility]. PT WAS REQUESTING THAT MEDS BE FILLED AT [facility] INSTEAD. CALL TO DR. MEDINA AND SHE STATES THIS IS OK. HADNWRITTEN PHYSICIANS ORDERS FAXED TO [facility] FOR PROTONIX AND XARELTO. PT STATES HAD PREVIOUSLY FILLED THE HANDWRITTEN SCRIP PROVIDED AT DISCHARGE FOR OXYCODONE AND DID NOT NEED ADDITIONAL SCRIP AT THIS TIME.
== END 2020-07-31 14:21 | disposition home or self-care (01) | DRG 253 ==
LOC: ER 17:46 → PCU 17:47 → ICUW 07-29 16:58 → ICUE 07-29 17:27
PROVIDERS: Emergency Medicine; Internal Medicine; Physician Assistant; ADMIT Internal Medicine
PROC: B41G1ZZ Fluoroscopy of Left Lower Extremity Arteries using Low Osmolar Contrast (ICD-10-PCS; principal; 2020-07-29)
PROC: 3E05317 Introduction of Other Thrombolytic into Peripheral Artery, Percutaneous Approach (ICD-10-PCS; 2020-07-29)
PROC: 047S3ZZ Dilation of Left Posterior Tibial Artery, Percutaneous Approach (ICD-10-PCS; 2020-07-30)
PROC: 047Q3ZZ Dilation of Left Anterior Tibial Artery, Percutaneous Approach (ICD-10-PCS; 2020-07-30)
PROC: 047U3ZZ Dilation of Left Peroneal Artery, Percutaneous Approach (ICD-10-PCS; 2020-07-30)
PROC: 047L34Z Dilation of Left Femoral Artery with Drug-eluting Intraluminal Device, Percutaneous Approach (ICD-10-PCS; 2020-07-30)
DX: I74.3 Embolism and thrombosis of arteries of the lower extremities (principal); E11.52 Type 2 diabetes mellitus with diabetic peripheral angiopathy with gangrene; Z87.891 Personal history of nicotine dependence; E03.9 Hypothyroidism, unspecified; E78.5 Hyperlipidemia, unspecified; I25.2 Old myocardial infarction; I10 Essential (primary) hypertension; I25.10 Atherosclerotic heart disease of native coronary artery without angina pectoris; Z95.5 Presence of coronary angioplasty implant and graft; Z79.82 Long term (current) use of aspirin; Z79.4 Long term (current) use of insulin
CPT/HCPCS: 36415; 37211; 37214; 37226; 37228; 37232; 51702; 73630; 75710; 80048; 80053; 80069; 82947; 85025; 85027; 85347; 85384; 85610; 85730; 86140; 93926; 96365; 99152; 99153; 99285-25; A9270; A9270-GY; C1725; C1751; C1760; C1769; C1874; C1887; C1894; J0692; J1170; J1644; J2250; J2405; J2997; J3010; J7030; J7040; J7042; J7050; Q9967

== ENCOUNTER 2020-08-04 10:18 | Observation (INO) | payer OTHER ==
[~2020-08-04] VITALS: Ht 177.8 cm; Wt 83.9 kg
[~2020-08-04 10:18] MED LIST changes: +HYDROCODON-ACET15 ML; +OXYC10TA19 PO
[2020-08-04 13:42] LABS: Alanine Aminotransfer (ALT/SGP 18 U/L (12-78); Albumin, Blood 2.5 g/dL (3.4-5.0); Albumin/Globulin Ratio 0.6 (0.8-1.8); Alk Phos 94 U/L (50-136); Anion Gap 9 mmol/L (6-16); Aspartate Aminotrans (AST/SGOT 17 U/L (12-37); Bilirubin, Total 0.5 mg/dL (0.1-1.0); Blood Urea Nitrogen 13 mg/dL (8-24); Bun/Creatinine Ratio 19.7 (12.0-20.0); CO2, Blood 27 mmol/L (21-32); Calcium, Blood 8.2 mg/dL (8.5-10.1); Chloride, Blood 107 mmol/L (98-108); Creatinine, Blood 0.66 mg/dL (0.60-1.20); Glomerular Filtration Rate >60 (60-); Glucose, Blood 214 mg/dL (70-99); Potassium, Blood 3.2 mmol/L (3.5-5.5); Sodium, Blood 143 mmol/L (136-145); Total Protein, Blood 6.5 g/dL (6.4-8.2); Troponin I 0.454 ng/mL (0.000-0.040)
[2020-08-04 13:48] LABS: BASOPHILS ABSOLUTE AUTO 0.05 K/mm3 (0.00-0.23); BASOPHILS PERCENT AUTO 1 % (0-2); EOSINOPHILS PERCENT AUTO 3 % (0-6); Hematocrit 26.4 % (37.0-53.0); Hemoglobin 8.3 g/dL (13.5-17.5); IMMATURE GRAN ABSOLUTE AUTO 0.01 K/mm3 (0.00-0.10); IMMATURE GRAN PERCENT AUTO 0 % (0-1); LYMPHOCYTES ABSOLUTE AUTO 0.54 K/mm3 (0.84-5.20); LYMPHOCYTES PERCENT AUTO 8 % (21-46); MONOCYTES ABSOLUTE AUTO 0.41 K/mm3 (0.16-1.47); MONOCYTES PERCENT AUTO 6 % (4-13); Mean Corpuscular HGB 27.2 pg (26.0-34.0); Mean Corpuscular HGB Conc 31.4 g/dL (31.5-36.5); Mean Corpuscular Volume 87 fL (80-100); Mean Platelet Volume 10.2 fL (9.1-12.4); NEUTROPHILS ABSOLUTE AUTO 5.31 K/mm3 (1.96-9.15); NEUTROPHILS PERCENT AUTO 81 % (41-73); Platelet Count 233 K/mm3 (150-400); RDW Coefficient Variation 14.6 % (11.7-14.2); RDW Standard Deviation 46.2 fL (35.1-46.3); Red Blood Cell Count 3.05 M/mm3 (4.30-5.90); White Blood Cell Count 6.52 K/mm3 (4.00-11.30)
--- NOTE | 2020-08-05 04:51 | NUR ---
SUMMARY PT CAME TO ROOM FROM ED. TRANSFERRED INDEPEDENTLY FROM BED TO BED. DRESSING PLACED ON LEFT FIRST TOE THAT IS GANGRENE BECAUSE PT SCRATCHED IT AND IT STARTED BLEEDING. PT COMPLAINS OF NAUSEA AFTER ALREADY BEING MEDICATED IN THE ED, PROVIDED HIM WITH FOOD, WHICH HE DID NOT EAT, HE SHORTLY FELL ASLEEP. SLEPT MOST THE NIGHT. VSS, NO ACUTE CHANGES OVERNIGHT, DENIES CP AND SOB. CALL LIGHT IN REACH AND BED IN LOW POSITION.
[2020-08-05 04:53] LABS: BASOPHILS ABSOLUTE AUTO 0.04 K/mm3 (0.00-0.23); BASOPHILS PERCENT AUTO 1 % (0-2); EOSINOPHILS ABSOLUTE AUTO 0.17 K/mm3 (0.00-0.68); EOSINOPHILS PERCENT AUTO 3 % (0-6); Hematocrit 24.3 % (37.0-53.0); Hemoglobin 7.5 g/dL (13.5-17.5); IMMATURE GRAN ABSOLUTE AUTO 0.02 K/mm3 (0.00-0.10); IMMATURE GRAN PERCENT AUTO 0 % (0-1); LYMPHOCYTES ABSOLUTE AUTO 0.84 K/mm3 (0.84-5.20); LYMPHOCYTES PERCENT AUTO 13 % (21-46); MONOCYTES ABSOLUTE AUTO 0.59 K/mm3 (0.16-1.47); MONOCYTES PERCENT AUTO 9 % (4-13); Mean Corpuscular HGB 26.7 pg (26.0-34.0); Mean Corpuscular HGB Conc 30.9 g/dL (31.5-36.5); Mean Corpuscular Volume 87 fL (80-100); NEUTROPHILS ABSOLUTE AUTO 4.98 K/mm3 (1.96-9.15); NEUTROPHILS PERCENT AUTO 75 % (41-73); Platelet Count 214 K/mm3 (150-400); RDW Coefficient Variation 14.7 % (11.7-14.2); RDW Standard Deviation 46.8 fL (35.1-46.3); Red Blood Cell Count 2.81 M/mm3 (4.30-5.90); White Blood Cell Count 6.64 K/mm3 (4.00-11.30)
[2020-08-05 05:14] LABS: Anion Gap 7 mmol/L (6-16); Blood Urea Nitrogen 9 mg/dL (8-24); Bun/Creatinine Ratio 13.7 (12.0-20.0); CO2, Blood 28 mmol/L (21-32); Calcium, Blood 7.9 mg/dL (8.5-10.1); Chloride, Blood 108 mmol/L (98-108); Creatinine, Blood 0.66 mg/dL (0.60-1.20); Glomerular Filtration Rate >60 (60-); Glucose, Blood 205 mg/dL (70-99); Magnesium, Blood 1.5 mg/dL (1.6-2.4); Potassium, Blood 3.3 mmol/L (3.5-5.5); Sodium, Blood 143 mmol/L (136-145)
--- NOTE | 2020-08-05 13:20 | NUR ---
HOSPITALIST NOTIFIED OF INCREASED PAIN IN LEFT FOOT/GREAT TOE. PEDAL PULSE INTACT, CIRC WNL, DRSG REMAINS C/D/I. LEGS ELEVATED ON PILLOWS, 1 NORCO 5 Q6 PRN HAS BEEN ORDERED AT THIS TIME. CALL LIGHT IN REACH.
--- NOTE | 2020-08-05 16:24 | NUR ---
Initial palliative care consult: Mateus is a 65 year old with a history of CAD, PAD, DM, hyperlipidemia, bladder CA, anemia, gangrene of the left great toe. He was admitted on 08/04/20 with a NSTEMI. He was previously scheduled to have an amputation of his left great toe done on Thursday08/07/20. He is currently in PCU room 6. He has been living with his sister, Lizzie, and her for the past several months. 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 He reports a past history for 20 years of drug abuse. He is a . He has a PCP in the [place] by the last name of Mikal. He states that he doesn't have any POLST or AD on file at the [facility]. He c/o occasional sharp pains from his left great toe shooting up his leg. He was medicated with a PO pain med prior to my arrival. He denies CP or SOB at present. He is anxious about spending another night in the hospital due to pain. At home he vapes with THC "a couple of hits" which helps with his neuropathic pain. He appears anxious at times and can be easily distracted. He reports he quit smoking 7 months ago. He states that he is supposed to check his blood sugars daily but he admits that he doesn't. He did say that his sister has him on a better diet now that he has been living with her. He states that his brother, Rachid, in [place] is undergoing chemo for pancreatic cancer and that his brother's health is a stressor for him. He reports that his sister had a conversation with him this morning and he said that she didn't come right out and say it but he gets the feeling she isn't going to want to continue to have him live with her and care for him. He also reports that he and his ex- have been talking recently and are considering moving in together to be able to help each other out. Discussed code status and advanced care planning. He states he would like to think about choices before making any decision. He thinks he would like to have his sister and brother who are both local help make decisions for him. He is worried that if he chose to be a DNR that his sister wouldn't support him "Because she is very pentecostalism." Explained that it is his choice and that if his sister was unable to support his decision that he consider someone else as an alterate decision maker who can support his choices. He thanked this parts data writer for the visit. He states that the conversation helped distract him from the current stress of being in the hospital. PC will continue to follow and assist with POLST and AD should he choose to complete those forms during his stay in the hospital. He state he hasn't rec'd any benefits from the [facility] in the past and is wondering that if his sister wants him to move out if the VA would have some assistance for housing available. Will have CM come and talk with pt tomorrow about his questions re: VA benefits. He states the artist representative and intermission coordinator are supposed to see him tomorrow. He is hopeful to get the surgery done so that he can go home.
--- NOTE | 2020-08-05 18:36 | NUR ---
SHIFT SUMMARY NO ACUTE CHANGES NOTED. VSS, PT IS ON RA, DENIES CP/PRESSURE. PT HAS C/O INCREASED PAIN TO HIS LEFT FOOT. HE STATED THAT HE DID HIT IT ON SOMETHING LAST NIGHT, HE ALSO STATES HE IS SCHEDULED FOR A POSSIBLE AMPUTATION OF THE GREAT TOE ON THURSDAY WITH . CIRC WNL, PEDAL PULSE REMAINS INTACT, HOSPITALIST HAS BEEN NOTIFIED, PAIN MEDS WERE ORDERED & GIVEN, GABAPENTIN WILL BE STARTED PER HOME DOSE THIS EVENING. FOOT ELEVATED, CAREY C/D/I. CALL LIGHT IN REACH.
--- NOTE | 2020-08-05 23:14 | NUR ---
UPDATE PT C/O NOT BEING ABLE TO SLEEP AND STATES HE NORMALLY TAKES MELATONIN OR OTHER SLEEP AID; NOTIFIED AND NEW ORDER GIVEN FOR MELATONIN 5MG FOR BEDTIME; ADMINISTERED PER EMAR; CALL LIGHT IN REACH; BED IN LOWEST POSITION.
[2020-08-06 04:16] LABS: BASOPHILS ABSOLUTE AUTO 0.03 K/mm3 (0.00-0.23); BASOPHILS PERCENT AUTO 1 % (0-2); EOSINOPHILS ABSOLUTE AUTO 0.24 K/mm3 (0.00-0.68); EOSINOPHILS PERCENT AUTO 4 % (0-6); Hemoglobin 7.5 g/dL (13.5-17.5); IMMATURE GRAN ABSOLUTE AUTO 0.03 K/mm3 (0.00-0.10); IMMATURE GRAN PERCENT AUTO 1 % (0-1); LYMPHOCYTES ABSOLUTE AUTO 1.12 K/mm3 (0.84-5.20); LYMPHOCYTES PERCENT AUTO 17 % (21-46); MONOCYTES ABSOLUTE AUTO 0.56 K/mm3 (0.16-1.47); MONOCYTES PERCENT AUTO 9 % (4-13); Mean Corpuscular HGB 26.5 pg (26.0-34.0); Mean Corpuscular Volume 88 fL (80-100); Mean Platelet Volume 9.8 fL (9.1-12.4); NEUTROPHILS ABSOLUTE AUTO 4.52 K/mm3 (1.96-9.15); NEUTROPHILS PERCENT AUTO 70 % (41-73); Platelet Count 232 K/mm3 (150-400); RDW Coefficient Variation 14.8 % (11.7-14.2); RDW Standard Deviation 47.5 fL (35.1-46.3); Red Blood Cell Count 2.83 M/mm3 (4.30-5.90)
[2020-08-06 04:33] LABS: Anion Gap 4 mmol/L (6-16); Blood Urea Nitrogen 13 mg/dL (8-24); Bun/Creatinine Ratio 19.2 (12.0-20.0); CO2, Blood 31 mmol/L (21-32); Calcium, Blood 8.3 mg/dL (8.5-10.1); Chloride, Blood 109 mmol/L (98-108); Creatinine, Blood 0.68 mg/dL (0.60-1.20); Glomerular Filtration Rate >60 (60-); Glucose, Blood 93 mg/dL (70-99); Magnesium, Blood 1.9 mg/dL (1.6-2.4); Potassium, Blood 3.5 mmol/L (3.5-5.5); Sodium, Blood 144 mmol/L (136-145)
--- NOTE | 2020-08-06 06:00 | NUR ---
SHIFT SUMMARY PT A&O X3-4; ANSWERING APPROPRIATELY; VSS; NSR -SINUS JAMIN NOTED ON TELE; JAMIN EPISODE W/ HR 37 NOTED THIS AM, PT WAS ASSYMPTOMATIC AND WAS AWAKEN TO ELEVATE HR; O2 SATS > 92 ON RA; DENIES SOB; C/O SEVERE PAIN IN FOOT AND MEDICATED PER EMAR; CALL LIGHT IN REACH; BED IN LOWEST POSITION; WILL CONTINUE TO MONITOR CLOSELY UNTIL HAND OFF TO DAY SHIFT RN.
--- NOTE | 2020-08-06 14:39 | NUR ---
PT UPDATED AGAIN ON STATUS OF . HAS LEFT A MESSAGE & SO HAS THE CHARGE NURSE REGARDING HIS CURRENT CONDITION/STAY. PT IS SCHEDULED TO HAVE SURGERY TOMORROW. PT STATES HE "WANTS ANSWERS BY DINNER OR HE MAY WANT TO JUST LEAVE" " I CAN BE DOING THE SAME THING AT HOME". THE PT WAS EDUCATED ABOUT THE IMPORTANCE OF CONTACTING THE PHYSICIAN AND WAITING. PT WILL BE UPDATED MORE OFTEN. WCTM. CALL LIGHT IN REACH
--- NOTE | 2020-08-06 14:56 | NUR ---
IN TO SPEAK WITH THE PT AT THIS TIME. PT WAS ENC TO F/U [facility] FOR ANY CONCERNS/CP IN THE ED. PT WILL F/U WITH IN HIS CLINIC TOMORROW & OUT PT WITH CARDIOLOGY IN 2 WEEKS. PT STATED UNDERSTANDING. OTHER SPORTS COACH OR INSTRUCTOR IS CURRENTLY WORKING ON D/C PAPERS
[2020-08-06] MEDS ORDERED: Isosorbide Mono30 MG PO (15:28)
[2020-08-06] MEDS ORDERED: BACTRIM DS TAB1 EAC1 PO (15:29)
--- NOTE | 2020-08-06 17:00 | NUR ---
DISCHARGE PT D/C TO HOME WITH FAMILY, PT WAS GIVEN D/C EDUCATION, MEDICATION ADJUSTMENTS WERE EXPLAINED IN DETAIL, PT ENC TO F/U [facility] FOR ANY PROBLEMS OR CONCERNS, PT STATES UNDERSTANDING. PT WAS GIVEN DRSG MATERIAL TO WRAP HIS LEFT FOOT PRIOR TO D/C PER HIS REQUEST. PEDAL PULSE INTACT, CIRC WNL. VSS, RESP UNLABORED. PT ESCORTED TO HIS BROTHER'S VEHICLE VIA W/C.
== END 2020-08-06 17:05 | disposition home or self-care (01) ==
LOC: ER 10:18 → PCU 10:19 → ER 15:43 → PCU 15:43
PROVIDERS: Emergency Medicine; Internal Medicine; Nurse Practitioner Acute Care; ADMIT Hospitalist
DX: I21.4 Non-ST elevation (NSTEMI) myocardial infarction (principal); I25.10 Atherosclerotic heart disease of native coronary artery without angina pectoris; I10 Essential (primary) hypertension; E11.52 Type 2 diabetes mellitus with diabetic peripheral angiopathy with gangrene; I70.262 Atherosclerosis of native arteries of extremities with gangrene, left leg; D64.9 Anemia, unspecified; E78.5 Hyperlipidemia, unspecified; E03.9 Hypothyroidism, unspecified; Z79.82 Long term (current) use of aspirin; Z79.899 Other long term (current) drug therapy; Z79.01 Long term (current) use of anticoagulants; Z79.4 Long term (current) use of insulin; Z88.2 Allergy status to sulfonamides; E87.6 Hypokalemia
CPT/HCPCS: 36415; 71045; 80048; 80053; 82947; 83735; 84484; 85014; 85018; 85025; 93005; 93010; 96375; 96376; 99285-25; A9270; A9270-GY; G0378; J2405; J3475; J7030

== ENCOUNTER 2020-08-27 14:35 | Inpatient (IN) | payer OTHER ==
[~2020-08-27] VITALS: Ht 177.8 cm; Wt 74.9 kg
[~2020-08-27 14:35] MED LIST changes: +BACTRIM DS TAB1 EAC1 PO; +Isosorbide Mono30 MG PO
--- NOTE | 2020-08-30 14:13 | NUR ---
Ambulatory in Day Surgery History, Chart, Medications and Allergies reviewed before start of procedure. Lungs clear T/O to Auscultation. Patient confirms NPO status and agrees with scheduled surgery. Patient States Post-Procedure ride home has been arranged.
--- NOTE | 2020-08-30 15:02 | NUR ---
PT'S CBG 424. CONSULTED WITH DR. ANDERSON. DR. ANDERSON STATED IT WOULD BE BEST FOR PT TO GET BETTER CONTOLLED DUE TO RISK OF INFECTION. DR. ROJAS CONSULTED AND AGREED. PT TO BE ADMITTED TONIGHT AND PROCEDURE SCHEDULED FOR 1230 TOMORROW 08/31/20. PT VERY UNDERSTANDING.
--- NOTE | 2020-08-30 15:06 | NUR ---
ESVIN, ANALYTICAL LAB TECHNICIAN NURSE WORKING ON ADMITTING PT TO FLOOR. PT EATING ROASTBEEF SANDWICH AND DRINKING WATER.
[2020-08-30 17:01] LABS: BASOPHILS ABSOLUTE AUTO 0.06 K/mm3 (0.00-0.23); BASOPHILS PERCENT AUTO 1 % (0-2); EOSINOPHILS PERCENT AUTO 1 % (0-6); Hematocrit 36.9 % (37.0-53.0); Hemoglobin 11.6 g/dL (13.5-17.5); IMMATURE GRAN ABSOLUTE AUTO 0.02 K/mm3 (0.00-0.10); IMMATURE GRAN PERCENT AUTO 0 % (0-1); LYMPHOCYTES ABSOLUTE AUTO 0.94 K/mm3 (0.84-5.20); LYMPHOCYTES PERCENT AUTO 12 % (21-46); MONOCYTES ABSOLUTE AUTO 0.37 K/mm3 (0.16-1.47); MONOCYTES PERCENT AUTO 5 % (4-13); Mean Corpuscular HGB 26.8 pg (26.0-34.0); Mean Corpuscular HGB Conc 31.4 g/dL (31.5-36.5); Mean Corpuscular Volume 85 fL (80-100); Mean Platelet Volume 9.6 fL (9.1-12.4); NEUTROPHILS PERCENT AUTO 81 % (41-73); Platelet Count 266 K/mm3 (150-400); RDW Coefficient Variation 14.5 % (11.7-14.2); Red Blood Cell Count 4.33 M/mm3 (4.30-5.90); White Blood Cell Count 7.79 K/mm3 (4.00-11.30)
[2020-08-30 17:20] LABS: Anion Gap 9 mmol/L (6-16); Blood Urea Nitrogen 20 mg/dL (8-24); Bun/Creatinine Ratio 24.8 (12.0-20.0); CO2, Blood 28 mmol/L (21-32); Calcium, Blood 9.3 mg/dL (8.5-10.1); Chloride, Blood 101 mmol/L (98-108); Creatinine, Blood 0.81 mg/dL (0.60-1.20); Glomerular Filtration Rate >60 (60-); Glucose, Blood 402 mg/dL (70-99); Potassium, Blood 3.9 mmol/L (3.5-5.5); Sodium, Blood 138 mmol/L (136-145)
--- NOTE | 2020-08-30 17:39 | NUR ---
SHIFT SUMMARY DIABETIC ULCER TO L HALLUX, A/O X4, VSS, PT TO HAVE SURGERY TODAY BUT DELAYED TILL TOMORROW DUE TO ELEVATED CBG IN DAY SURGERY. INDEPENDENT IN ROOM, VOIDING WELL, TOLERATING PO, TO BE NPO @ MIDNIGHT FOR SURGERY TOMORROW. ORIENTED TO ROOM, CALL LIGHT IN REACH, WILL CONTINUE TO MONITOR AND REPORT TO ONCOMING NOC RN.
[2020-08-31 04:47] LABS: BASOPHILS ABSOLUTE AUTO 0.07 K/mm3 (0.00-0.23); BASOPHILS PERCENT AUTO 1 % (0-2); EOSINOPHILS ABSOLUTE AUTO 0.26 K/mm3 (0.00-0.68); EOSINOPHILS PERCENT AUTO 4 % (0-6); Hematocrit 35.9 % (37.0-53.0); Hemoglobin 11.1 g/dL (13.5-17.5); IMMATURE GRAN ABSOLUTE AUTO 0.02 K/mm3 (0.00-0.10); IMMATURE GRAN PERCENT AUTO 0 % (0-1); LYMPHOCYTES ABSOLUTE AUTO 1.81 K/mm3 (0.84-5.20); LYMPHOCYTES PERCENT AUTO 29 % (21-46); MONOCYTES PERCENT AUTO 6 % (4-13); Mean Corpuscular HGB 26.5 pg (26.0-34.0); Mean Corpuscular HGB Conc 30.9 g/dL (31.5-36.5); Mean Corpuscular Volume 86 fL (80-100); Mean Platelet Volume 9.6 fL (9.1-12.4); NEUTROPHILS ABSOLUTE AUTO 3.77 K/mm3 (1.96-9.15); NEUTROPHILS PERCENT AUTO 60 % (41-73); Platelet Count 284 K/mm3 (150-400); RDW Coefficient Variation 14.5 % (11.7-14.2); RDW Standard Deviation 45.2 fL (35.1-46.3); Red Blood Cell Count 4.19 M/mm3 (4.30-5.90); White Blood Cell Count 6.33 K/mm3 (4.00-11.30)
[2020-08-31 05:08] LABS: Anion Gap 5 mmol/L (6-16); Blood Urea Nitrogen 24 mg/dL (8-24); Bun/Creatinine Ratio 33.4 (12.0-20.0); CO2, Blood 31 mmol/L (21-32); Calcium, Blood 9.3 mg/dL (8.5-10.1); Chloride, Blood 103 mmol/L (98-108); Creatinine, Blood 0.72 mg/dL (0.60-1.20); Glomerular Filtration Rate >60 (60-); Glucose, Blood 72 mg/dL (70-99); Potassium, Blood 3.3 mmol/L (3.5-5.5); Sodium, Blood 139 mmol/L (136-145)
--- NOTE | 2020-08-31 05:18 | NUR ---
SHIFT SUMMARY PT RESTING WELL THIS AM. AAOX4. NPO. DISCOMFORT DECREASED WITH OXYCODONE X3 THIS SHIFT. NO NAUSEA/EMESIS. LEFT FOOT WOUND CARA, NO DRAINAGE. INDEPENDENT IN ROOM. GOOD OUTPUT. BLOOD SUGAR WNL THIS AM. PT CURRENTLY RESTING IN BED WITH CALL LIGHT IN REACH.
--- NOTE | 2020-08-31 11:59 | NUR ---
PT TO DAY SURGERY AT THIS TIME
--- NOTE | 2020-08-31 14:02 | NUR ---
POST OP PT ALERT, AWAKE, AND ORIENTED. PT DENIES PAIN AT THIS TIME. ALFREDO WRAP TO LEFT FOOT APPEARS CDI AND ELEVATED ON PILLOWS. PT ABLE TO WIGGLE TOES AND DENIES N/T. PT ABLE TO STAND AND PIVOT TO BED FROM [facility] WITH 1 SBA. IVF INFUSING PER ORDERS. ADVANCING DIET TOLERATED. POST OP VS IN PROGRESS AND STABLE. FAMILY MEMBER AT BEDSIDE FOR SUPPORT. CALL LIGHT WITHIN REACH.
--- NOTE | 2020-08-31 18:40 | NUR ---
SHIFT SUMMARY L HALLUX AMPUTATION, A/O X4, VSS. PT COMPLAINS OF SEVERE PAIN 10/10 ON 0-10 SCALE, SPOKE WITH HOSPITALIST WHO ORDERED ADDITIONAL PAIN MEDS (SEE EMAR). PT COMPLAINS OF ONLY TEMPORARY RELIEF AND RETURN OF 10/10 PAIN ON 0-10 SCALE AFTER 30-45 MINUTES OF SUBLIMAZE ADMINISTRATION. SPOKE W/ HOSPITALIST AGAIN TO DISCUSS PLANS OF INCREASED PAIN MEDS TO BETTER MANAGE PT'S PAIN. RECEIVED ORDER FOR ONE TIME SUBLIMAZE AND CHANGES TO PREVIOUSLY ORDERED PAIN MEDS (SEE EMAR). PT REPORTS WANTING TO TALK DIRECTLY TO HOSPITALIST ABOUT CURRENT CONDITION, HOSPITALIST STATES TO CALL HER FROM PT'S ROOM AND SHE WILL TALK W/ HIM OVER THE PHONE. CALLED FROM ROOM AND LEFT MESSAGE, AWAITING CALL BACK. WILL CALL AGAIN IN 10 MINUTES IF NO CALL BACK YET. PT TOLERATING PO, HASN'T BEEN UP SINCE SURGERY DUE TO PAIN. CALL LIGHT IN REACH, WILL CONTINUE TO MONITOR AND REPORT TO ONCOMING NOC RN.
--- NOTE | 2020-08-31 21:57 | NUR ---
Called dr ontiveros as i am unable to obtain pedal or post tibial pulse with palpation or doppler with slight dusky appearance to toes and slightly cool to touch correction up calf. pt reports appearance of toes as unchanged.although pt reports having had revascularization approx [address] ontiveros verb he had not used doppler on pt, but he has been unable to palpate pulses preop.pt with known hx poor circulation. dr ordered arterial study LLE for am when staff from that department is available.
--- NOTE | 2020-09-01 09:12 | NUR ---
SUMMARY DOPPLER THIS AM,. PT HOPING TO GO HOME TODAY. CONT MONITORING CBG.MED THIS AM X1 WITH SUBLIMAZE FOR PAIN WITH GOOD EFFECT.
[2020-09-01 13:29] LABS: International Normalized Ratio 0.97; Prothrombin Time Results 10.4 Sec (9.7-11.5)
--- NOTE | 2020-09-01 19:20 | NUR ---
SUMMARY: NO ACUTE CHANGE TODAY. VSS, A/O. SURGICAL SITE WNL. IV DRIP HEPARIN STARTED AT ABOUT 1417, CURRENTLY INFUSING. PT EDUCATED ABOUT SAFETY AND MOBILITY WHILE THE DRIP IS INFUSIONG. PT MEDICATED FOR PAIN PER EMAR. ABLE TO AMBULATE WELL WITH FWW AND NON WEIGHT BEAR. PLAN IS FOR DR. NORRIS TO SEE PT THURSDAY FOR REVASCULARAZATION. WILL CTM AND REPORT TO WILBERTO SUMNER.
--- NOTE | 2020-09-02 04:45 | NUR ---
ENTERED PTS ROOM TO CK VS AND NOTED PT HAD ACCIDENTALLY DISLODGED IV CANNULA. CATH INTACT. I ATTMPTED NEW IV AND Oscar BARBOSA RN ATTEMPTED AND WAS UNABLE TO OBTAIN IV SITE.I NOTIFIED [facility]I PHARMACIST, PCU STAFF OBTAINED IV THIS AM. PTTP DRAWN WITH OTHER LABS WITH IV START AND HEPARIN DRIP RESUMED.
[2020-09-02 06:52] LABS: BASOPHILS ABSOLUTE AUTO 0.07 K/mm3 (0.00-0.23); BASOPHILS PERCENT AUTO 1 % (0-2); EOSINOPHILS ABSOLUTE AUTO 0.19 K/mm3 (0.00-0.68); EOSINOPHILS PERCENT AUTO 2 % (0-6); Hematocrit 35.8 % (37.0-53.0); Hemoglobin 10.9 g/dL (13.5-17.5); IMMATURE GRAN ABSOLUTE AUTO 0.03 K/mm3 (0.00-0.10); IMMATURE GRAN PERCENT AUTO 0 % (0-1); LYMPHOCYTES ABSOLUTE AUTO 1.57 K/mm3 (0.84-5.20); LYMPHOCYTES PERCENT AUTO 15 % (21-46); MONOCYTES ABSOLUTE AUTO 0.72 K/mm3 (0.16-1.47); MONOCYTES PERCENT AUTO 7 % (4-13); Mean Corpuscular HGB 26.5 pg (26.0-34.0); Mean Corpuscular HGB Conc 30.4 g/dL (31.5-36.5); Mean Corpuscular Volume 87 fL (80-100); Mean Platelet Volume 9.4 fL (9.1-12.4); NEUTROPHILS ABSOLUTE AUTO 7.98 K/mm3 (1.96-9.15); NEUTROPHILS PERCENT AUTO 76 % (41-73); Platelet Count 299 K/mm3 (150-400); RDW Coefficient Variation 14.7 % (11.7-14.2); RDW Standard Deviation 46.8 fL (35.1-46.3); Red Blood Cell Count 4.11 M/mm3 (4.30-5.90); White Blood Cell Count 10.56 K/mm3 (4.00-11.30)
[2020-09-02 11:01] LABS: CHOL/HDL RATIO 3.9; Cholesterol 158 mg/dL (50-200); HDL Cholesterol 41 mg/dL (>39); Low Density Lipoprotein Chol 82 mg/dL (0-110); Triglycerides 176 mg/dL (30-160); Very Low Density Lipoprot Chol 35 mg/dL (6-32)
--- NOTE | 2020-09-02 17:06 | NUR ---
SUMMARY: NO CHANGE TODAY. VSS, A/O, USING CALL LIGHT. SURGICAL SITE WNL. PT REPORTS THAT IT'S PAINFUL TO USE POST OP BOOT, FOLLOWING NWB STATUS. MEDICATED FOR PAIN PER EMAR. HEPARIN DRIP CONTINUES TO INFUSE, SEE EMAR. NO SAFETY CONCERNS AT THIS TIME
--- NOTE | 2020-09-03 06:28 | NUR ---
SHIFT SUMMARY LYING IN SEMI FOWLERS WITH EYES OPEN. AAO X4, JAIME, FOLLOWS ALL COMMANDS. LLE PAIN MANAGED WITH PERCOCET, GIVEN FENTANYL FOR BREAKTHROUGH PAIN. GAVE AM DOSE OF GABAPENTIN EARLY TO HELP WITH NERVE PAIN FLAIR UP. HAS BEEN NPO SINCE [facility] FOR POSS REVASC SX TODAY WITH DR. NORRIS. DENIES FURTHER NEEDS OR WANTS AT THIS TIME. SAFETY MEASURES IN PLACE. WILL CONTINUE TO MONITOR AND GIVE HAND OFF TO ONCOMING SHIFT USING SBAR.
[2020-09-03 09:04] LABS: BASOPHILS ABSOLUTE AUTO 0.06 K/mm3 (0.00-0.23); BASOPHILS PERCENT AUTO 1 % (0-2); EOSINOPHILS ABSOLUTE AUTO 0.22 K/mm3 (0.00-0.68); EOSINOPHILS PERCENT AUTO 3 % (0-6); Hematocrit 34.4 % (37.0-53.0); Hemoglobin 10.2 g/dL (13.5-17.5); IMMATURE GRAN ABSOLUTE AUTO 0.03 K/mm3 (0.00-0.10); IMMATURE GRAN PERCENT AUTO 0 % (0-1); LYMPHOCYTES ABSOLUTE AUTO 1.38 K/mm3 (0.84-5.20); LYMPHOCYTES PERCENT AUTO 16 % (21-46); MONOCYTES ABSOLUTE AUTO 0.66 K/mm3 (0.16-1.47); MONOCYTES PERCENT AUTO 8 % (4-13); Mean Corpuscular HGB 26.4 pg (26.0-34.0); Mean Corpuscular HGB Conc 29.7 g/dL (31.5-36.5); Mean Corpuscular Volume 89 fL (80-100); Mean Platelet Volume 9.6 fL (9.1-12.4); NEUTROPHILS ABSOLUTE AUTO 6.32 K/mm3 (1.96-9.15); NEUTROPHILS PERCENT AUTO 73 % (41-73); Platelet Count 225 K/mm3 (150-400); RDW Standard Deviation 48.7 fL (35.1-46.3); Red Blood Cell Count 3.86 M/mm3 (4.30-5.90); White Blood Cell Count 8.67 K/mm3 (4.00-11.30)
[2020-09-03 09:19] LABS: Albumin, Blood 2.9 g/dL (3.4-5.0); Anion Gap 5 mmol/L (6-16); Blood Urea Nitrogen 15 mg/dL (8-24); Bun/Creatinine Ratio 19.1 (12.0-20.0); CO2, Blood 29 mmol/L (21-32); Calcium, Blood 9.2 mg/dL (8.5-10.1); Chloride, Blood 108 mmol/L (98-108); Creatinine, Blood 0.78 mg/dL (0.60-1.20); Glomerular Filtration Rate >60 (60-); Glucose, Blood 57 mg/dL (70-99); Phosphorus, Blood 3.6 mg/dL (2.5-4.9); Potassium, Blood 3.8 mmol/L (3.5-5.5); Sodium, Blood 142 mmol/L (136-145)
--- NOTE | 2020-09-03 16:13 | NUR ---
SHIFT SUMMARY PT REPORTS INTERMITTENT LEFT FOOT PAIN THAT COMES IN "WAVES". WHEN PAIN OCCURS, PT REPORTS 10/10 PAIN WITH GRIMACING AND MOANING. PT REPORTS THAT PAIN MEDICATIONS "DON'T REALLY WORK". 2 PERCOCET + X1 IV FENTANYL FOR BREAKTHROUGH PAIN GIVEN. PT STATES "THE PAIN GOES AWAY ON ITS OWN AFTER AWHILE." DR. NORRIS'S PA SAW PT AND REPORTS PT WILL HAVE REVASCULARIZATION PROCEDURE TOMORROW EVENING. PT WILL BE NPO AT MIDNIGHT. HEPARIN GTT INFUSING PER ORDERS. LEFT FOOT ALFREDO WRAP REMOVED FOR PT COMFORT AND KERLEX IN PLACE REMAINS CDI. PT 1 SBA TO RESTROOM. PT VERY PLEASANT AND COOPERATIVE AND USES CALL LIGHT APPROPRIATELY.
[2020-09-04 05:37] LABS: Hematocrit 33.1 % (37.0-53.0); Mean Corpuscular HGB Conc 30.2 g/dL (31.5-36.5); Mean Corpuscular Volume 89 fL (80-100); Mean Platelet Volume 9.8 fL (9.1-12.4); Platelet Count 209 K/mm3 (150-400); RDW Standard Deviation 49.2 fL (35.1-46.3); Red Blood Cell Count 3.71 M/mm3 (4.30-5.90); White Blood Cell Count 6.38 K/mm3 (4.00-11.30)
--- NOTE | 2020-09-04 05:43 | NUR ---
SHIFT [facility] POD #4 S/P RIGHT HALLUX AMPUTATION. KERLEX/GAUZE DRESSING CDI. PAIN MANAGED WITH 2TABS PERCOCET AND 50MCG IV FENTANYL X2 FOR BREAKTHROUGH PER ORDERS. AMB TO BATHROOM WITH 1 ASSIST/FWW/GB. HEPARIN INFUSING. IS NPO. PLAN FOR POSSIBLE REVASCULARIZATION PROCEDURE TODAY. PT CURRENTLY RESTING IN BED WITH CALL LIGHT IN REACH. WILL CONT TO MONITOR AND GIVE REPORT TO ONCOMING RN.
[2020-09-04 06:22] LABS: Albumin, Blood 2.9 g/dL (3.4-5.0); Anion Gap 6 mmol/L (6-16); Blood Urea Nitrogen 14 mg/dL (8-24); Bun/Creatinine Ratio 16.3 (12.0-20.0); CO2, Blood 28 mmol/L (21-32); Chloride, Blood 107 mmol/L (98-108); Creatinine, Blood 0.86 mg/dL (0.60-1.20); Glomerular Filtration Rate >60 (60-); Glucose, Blood 163 mg/dL (70-99); Phosphorus, Blood 3.7 mg/dL (2.5-4.9); Sodium, Blood 141 mmol/L (136-145)
--- NOTE | 2020-09-04 15:37 | NUR ---
HEART CENTER TAKING PT TO PROCEDURE AT THIS TIME.
--- NOTE | 2020-09-04 16:09 | NUR ---
SHIFT SUMMARY PT NPO THIS SHIFT UNTIL TAKEN BACK TO HEART CENTER FOR REVASCULARIZATION PROCEDURE. PT WAS RECEIVING 2 PERCOCET + IV FENTANYL FOR BREAKTHROUGH PAIN TO LEFT FOOT. DRESSING ON LEFT FOOT REMAINED CDI. PT UP TO BRP 1 SBA WITH FWW. NWB TO LEFT FOOT. HEPARIN GTT INFUSING PER ORDERS AND HEART [facility]ENTER TOOK PT DOWN WITH HEPARIN GTT IN PLACE. PLANNING TO TRANSFER PT BELONGINGS TO NEW ROOM WHEN BED READY.
--- NOTE | 2020-09-04 18:47 | NUR ---
PERSONAL BELONGINGS + MEDICATIONS BROUGHT TO ICU-8.
--- NOTE | 2020-09-04 19:15 | NUR ---
ASSUMPTION OF CARE RECEIVED REPORT FROM ZUNILDA SUMNRE, ASSUMED CARE OF PATIENT. SHEATH TO RIGHT GROIN, WNL, SHEATH TO LEFT FOOT. ASSESSED ABSENT PULSES, COLD TO TOUCH. UNCHANGED FROM PREVIOUS ASSESSMENT. VITALS STABLE, PATIENT A/O.
--- NOTE | 2020-09-04 21:41 | NUR ---
JR NORRIS TO BEDSIDE TO ASSESS PATIENT, REPORTED PATIENT'S PAIN. RECEIVED NEW PAIN ORDERS. WILL TREAT PRESCRIBED.
--- NOTE | 2020-09-05 | NUR ---
RE-ASSESSMENT NO ACUTE CHANGES FROM INITIAL ASSESSMENT. PATIENT MEDICATED CHARTED FOR PAIN, VITALS STABLE. TPA AND HEPARIN CONTINUE TO INFUSE VIA SHEATH SITES ORDERED.
--- NOTE | 2020-09-05 01:00 | NUR ---
LEI CATHETER PATIENT UNABLE TO URINATE, BLADDER SCAN SHOWED GREATER THAN 900. NOTIFIED DR. CORREA, RECEIVED AN ORDER FOR LEI CATHETER FOR URINE RETENTION.
[2020-09-05 02:25] LABS: Source, Urine Catheter
[2020-09-05 02:30] LABS: Bilirubin, Urine Neg (Neg); Blood, Urine Neg (Neg); Glucose Qualitative, Urine Neg (Neg); Ketones, Urine Neg (Neg); Leukocyte Esterase, Urine Neg (Neg); Nitrite, Urine Neg (Neg); Protein, Urine Neg (Neg); Specific Gravity, Urine 1.015 (1.003-1.022); Urobilinogen, Urine NORM (Normal)
[2020-09-05 02:53] LABS: Appearance, Urine Clear (Clear); Color, Urine Yellow (P-Yellow)
--- NOTE | 2020-09-05 04:00 | NUR ---
RE-ASSESSMENT NO ACUTE CHANGES FROM PREVIOUS ASSESSMENT. LEFT FOOT REMAINS COOL TO TOUCH, ABSENT PULSE, PATIENT REPORTS PAIN TO ANKLE AND HEEL A TINGLING PAIN, RN UNABLE TO APPLY PRESSURE OR REPOSITION. THIS IS UNCHANGED FROM DR. NORRIS'S ASSESSMENT. WILL CONTINUE TO MONITOR AND MEDICATE PRESCRIBED.
--- NOTE | 2020-09-05 05:58 | NUR ---
OXYGEN PATIENT'S SATS 86-88% ON RA WHILE SLEEPING, 2L 02 PLACED VIA NC. SATS NOW GREATER THAN 95%.
--- NOTE | 2020-09-05 07:15 | NUR ---
BEGINNING OF SHIFT Assumed care of pt at 0700. Bedside report received from Louisa SUMNER. Pt A&O x 4. Answers questions. Follows commands. Verbalizes needs. Reports pain, pt to photo lab specialist at this time. Pt on 2 LPM NC. SpO2 90% or greater. Room air at baseline. SR per monitor. BP stable. Pt has arterial sheath to right femoral artery and left post tibial artery. Dressings have scant amount of drainage. Dressings intact. Pt taken to photo lab specialist with Marisol SUMNER.
--- NOTE | 2020-09-05 08:30 | NUR ---
Pt back from laborer plumbing. Per Latonia SUMNER, not much progress made and plan to infuse TPA at 1 mg/hr until patient goes back to laborer plumbing at 1600 today. Right femoral artery sheath remains free of hematoma or bruising. Scant leakage to dressing. Dressing intact. Left post tibial artery remains free of hematoma or bruising. Scant leakage to dressing. Dressing intact. Pt having difficulty with pain management. Call placed to Dr Burroughs. Provider stated she will enter new orders.
--- NOTE | 2020-09-05 12:01 | NUR ---
Dilaudid providing patient with adequate pain relief. Pt resting comfortably in bed at this time. Even chest rise and fall noted.
--- NOTE | 2020-09-05 13:19 | NUR ---
Notified Dr Lopez of decrease in fibrinogen. Provider stated to continue TPA drip at current rate and recheck fibrinogen in three hours.
--- NOTE | 2020-09-05 15:00 | NUR ---
Dr Lopez in unit. States new plan to keep pt on TPA overnight and take back to produce laborer in AM. Patient updated and verbalizes understanding.
--- NOTE | 2020-09-05 19:51 | NUR ---
SUMMARY Pt remains on TPA drip per orders and heparin drip per orders through arterial sheaths. Groin sheath has small amount of drainage, mildly increased from last measurement. Dressing reinforced. Pt remains on room air. Remains in good pain control with dilaudid and percocet. SR per monitor. BP stable. Report given to Olu SUMNER.
--- NOTE | 2020-09-05 21:00 | NUR ---
ASSUMED CARE: PT A&O X 4. AWAKE IN BED AND PLEASANT. COMPLAINS MAINLY OF PAIN. IN SR. SBP IN THE 100S. HR 50-60S. RADIAL PULSES PRESENT, R PEDAL PULSE PRESENT. L PEDAL PULSE IS ABSENT EVEN WITH DOPPLER. LUNG SOUNDS CLEAR, SATS WELL ON RA. LEI IN PLACE DRAINING TO GRAVITY. HAS 2 PIVS ON LFA. ARTERIAL SHEATH AT R GROIN IS IN PLACE WITH TPA INFUSING AT 0.5 AND HEPARIN AT 300U/HR. SHEATH ENDS AT POSTERIOR TIBIAL ARTERY. DRESSING TO R GROIN SITE CHANGED D/T LEAKING SITE.
--- NOTE | 2020-09-05 23:46 | NUR ---
R GROIN ART SHEATH CONTINUOUSLY LEAKING REQUIRING TWO DRESSING CHANGES THUS FAR.
--- NOTE | 2020-09-06 00:01 | NUR ---
PT REPEATEDLY TRIGGERING ALARM BY BREATH STACKING.
--- NOTE | 2020-09-06 01:00 | NUR ---
ASSUMED CARE: REPORT FROM STERLING SUMNER. PT ON HEPARIN AT 6CC/HR=3.8UNITS/KG/HR AND TPA AT 25CC/HR=0.5MG/HR THRU R FEMORAL ARTERIAL SHEATH. R FEMORAL SITE IS OOZING, SITE REINFORCED. DOPPLER PULSE ON R DORSALIS AND R PT. UNABLE TO GET DOPPLER PULSES ON L FOOT. FAINT L POPLITEAL PULSE PALPATED. PT STATES PAIN IN TOP OF L FOOT THAT RADIATES TO THE TOES. PT FEELS THAT HIS IS BEING WELL MEDICATED AND FEELS THAT THE PAIN IS MORE TOLERABLE THAN IT WAS LAST NIGHT.
--- NOTE | 2020-09-06 04:32 | NUR ---
R FEMORAL SITE SLIGHTLY OOZING, BUT HAS SLOWED DOWN. PT REPOSITIONED SELF FROM L SIDE TO BACK. DOPPLER PULSES TO R FOOT AND ABSENT PULSES TO L FOOT. L PT SHEATH IN PLACE WITH PRESSURE BAG ATTACHED.
--- NOTE | 2020-09-06 06:16 | NUR ---
SHIFT SUMMARY: PT HAD PAIN THOUGHOUT THE NIGHT IN HIS LEFT FOOT AND WAS MEDICATED NEEDED. DOPPLER PULSES TO R FOOT AND ABSENT PULSES TO L FOOT. R FEMORAL ARTERIAL SHEATH WITH HEPARIN RUNNING AT 6CC/HR AND TPA AT 0.5MG/HR. L PT ARTERIAL SHEATH IN PLACE AND ATTACHED TO A PRESSURE BAG. R FEMORAL SITE HAS BEEN LEAKY AND DR. NORRIS IS AWARE. SITE HAS BEEN REINFORCED WITH ABD DRESSINGS. DRAWING FIBRINOGEN LEVELS Q3HRS.
--- NOTE | 2020-09-06 07:05 | NUR ---
PT GAVE PERMISSION TO CARE FOR HIM ON 09/06/2020 AT 0705.
--- NOTE | 2020-09-06 07:15 | NUR ---
Assumed care of pt at 0700. Bedside report received from Jane SUMNER. Pt A&O x 4. Answers questions. Follows commands. Verbalizes needs. Pt pleasant and cooperative with care. Lungs clear t/o. SpO2 90% or greater RA. SR per monitor. BP stable. BT in all quadrants, normoactive. Right femoral artery sheath has TPA infusing at 0.5 mg/hr and heparin infusing at 6 mL/hr. Steady rate per orders from Dr Lopez. Site has a moderate amount of drainage. Dressing reinforced by previous RN. Dressing overall intact. Pt has left post tibial artery sheath, connected to pressure bag, free of drainage. Dressing C/D/I. Unable to locate distal pulses to LLE. Right pedal and post tibial pulses strong per doppler. RLE pink and warm. LLE dusky and warm with cool toes. Plan for patient to return to livestock laborer today. Procedure time unknown. Bed flat in reverse trendelenburg position. Pt NPO for procedure.
[2020-09-06 07:24] LABS: Mean Platelet Volume 9.9 fL (9.1-12.4); Platelet Count 143 K/mm3 (150-400)
--- NOTE | 2020-09-06 09:00 | NUR ---
TPA TURNED OFF Call placed to Dr Lopez. Notified provider that per orders, pt is to have TPA turned off. Discussed fibrinogen trend and discussed that right femoral artery sheath is having increasing oozing of blood. Provider states to stop TPA drip and to heparinize patient per pharmacy. Notified pharmacist, Kevin, of plan of care.
[2020-09-06 09:15] LABS: Hematocrit 31.4 % (37.0-53.0); Hemoglobin 9.5 g/dL (13.5-17.5); Mean Corpuscular HGB 26.8 pg (26.0-34.0); Mean Corpuscular HGB Conc 30.3 g/dL (31.5-36.5); Mean Corpuscular Volume 89 fL (80-100); Mean Platelet Volume 10.1 fL (9.1-12.4); Platelet Count 145 K/mm3 (150-400); RDW Coefficient Variation 15.1 % (11.7-14.2); RDW Standard Deviation 49.3 fL (35.1-46.3); Red Blood Cell Count 3.54 M/mm3 (4.30-5.90); White Blood Cell Count 7.49 K/mm3 (4.00-11.30)
--- NOTE | 2020-09-06 10:00 | NUR ---
Dr Burroughs in to see patient. Pt's pain not relieved by administration of dilaudid. Notified provider that percocet was given this morning but patient did not receive any last night. Provider ordered one time dose of dilaudid for patient.
--- NOTE | 2020-09-06 13:19 | NUR ---
REASSESSED PAIN AT 1310. PAIN TOLERABLE AT 5/10 AND CURRENT PAIN LEVEL 3/10.
--- NOTE | 2020-09-06 13:28 | NUR ---
Pt returned from laborer chemical processing. Orders given to run TPA at 1 mg/hr through sheath and heparin may run peripherally as side arm of groin sheath has too much resistance to infuse heparin. Dressing to right femoral artery C/D/I. Dressing to left post tibial artery sheath C/D/I.
--- NOTE | 2020-09-06 16:05 | NUR ---
Patient to phlebotomist lab assistant.
--- NOTE | 2020-09-06 19:01 | NUR ---
Patient has not returned to unit from lab support technician. On departure, pt was A&O x 4. Answering questions. Following commands. Verbalizing needs. SpO2 90% or greater on room air. SR per monitor. BP stable. Pt departed with heparin infusing peripherally at rate of 300 units per hour or 6 mL/hr. TPA infusing through right femoral artery sheath at rate of 1 mg/hr. Dressing intact. Leakage visualized underneath. Redevelopment Manager in to round on patient but patient not on unit.
--- NOTE | 2020-09-06 19:20 | NUR ---
RETURN FROM PLASTIC SURGERY SPECIALIST PT BROUGHT BACK TO ICU-08 FROM PLASTIC SURGERY SPECIALIST @ APPROX 1910. PT LETHARGIC & PALE, BUT A&O X4. UPON ARRIVAL TO UNIT, PT R GROIN SITE NOTED TO HAVE SMALL AMOUNT OF BLOOD ON GAUZE DRESSING & ABOUT HALF THE SIZE OF A GOLF BALL HEMATOMA NOTED WELL. SITE EXTREMELY TENDER FOR PT. L TIBIAL ACCESS SITE W/ MIGUEL PAD & TRANSPARENT DRESSING W/ BLOOD SOAKED ALL THE WAY THROUGH MIGUEL AND EXTENDING NEAR TRANSPARENT DRESSING BORDER. BOTH BLOOD SPOTS OUTLINED W/ MARKER UPON PT ARRIVAL. BILAT PEDAL & TIBIAL PULSES PRESENT W/ DOPPLER. VSS. MONITOR SHOWING SR, HR 70's. SPO2 > 92% ON RA. QUIQUE CATH PATENT & DRAINING. MD NORRIS TO UNIT TO
[2020-09-06 19:50] LABS: Hematocrit 29.2 % (37.0-53.0); Hemoglobin 8.8 g/dL (13.5-17.5)
--- NOTE | 2020-09-06 21:00 | NUR ---
ACCESS SITE(S) BLEED PT R GRION SITE W/ NEW BLEEDING @ APPROX 1930. MANUAL PRESSURE HELD FOR APROX 10 MIN. BLEEDING THEN CEASED & NEW BLOOD PARAMETER OUTLINED ON DRESSING. SITE SOFT & TENDER. PT L TIBIAL ACCESS SITE THEN W/ NEW BLEED NOTED TO BE POOLING ONTO BEDDING @ APPROX 1950. MANUAL PRESSURE HELD FOR APPROX 20 MIN. DRESSING REMOVED & REPLACED W/ SCANT AMOUNT OF FRESH BLOOD ON NEW DRESSING. SITE NO LONGER OOZING. BLOOD PARAMETER OUTLINED. MD NORRIS THEN TO UNIT TO ASSESS PT. UPDATED ON PT SITE BLEEDING W/ INSTRUCTION TO STILL INITIATE HEPARIN GTT IMMEDIATELY. HEPARIN GTT THEN INITIATED ONCE RATE PROVIDED BY PHARMACY.
[2020-09-06 21:34] LABS: Fibrinogen 223 mg/dL (170-430)
--- NOTE | 2020-09-06 22:20 | NUR ---
CRITICAL APPT CALL TO PHARMACY TO REPORT APTT > 139. PHARMACY W/ ORDER TO TURN OFF HEPARIN GTT FOR 1 HR, THEN RESUME @ 17 U/KG/HR, SEE ORDER. MD NORRIS THEN NOTIFIED W/ APPROVAL. PT R GROIN & L TIBIAL ACCESS SITES W/ NO NEW NOTED BLEEDING AT THIS TIME. WILL CONTINUE TO MONITOR.
--- NOTE | 2020-09-07 00:15 | NUR ---
CONFUSION PT W/ EPISODE OF FORGETFULNESS/CONFUSION AFTER SLEEPING HEAVILY W/ PT REPORT OF "I'M CONFUSED. WHAT ALL'S HAPPENED? MY MEMORY's JUST GONE." PT UPDATED ON CURRENT EVENTS. UPON NEXT REASSESSMENT PT REPORTS AWARENESS OF SITUATION. PT STATES "I DON'T KNOW WHY I'M GOING TO SLEEP SO EASILY. I'M JUST OUT & I DON'T EVEN KNOW IT. THEN I WOKE UP & DIDN'T KNOW ANYTHING. I REMEMBER NOW THOUGH." PT PREVIOUSLY GIVEN IV PAIN MEDICATION PER EMAR. PT REPORTS PAIN "0" NOW, DOWN FROM A "6", STATING "NO PAIN RIGHT NOW." WILL CONTINUE TO MONITOR.
[2020-09-07 04:13] LABS: Hematocrit 27.8 % (37.0-53.0); Hemoglobin 8.4 g/dL (13.5-17.5); Mean Corpuscular HGB Conc 30.2 g/dL (31.5-36.5); Mean Corpuscular Volume 89 fL (80-100); Mean Platelet Volume 9.9 fL (9.1-12.4); Platelet Count 135 K/mm3 (150-400); RDW Coefficient Variation 15.1 % (11.7-14.2); RDW Standard Deviation 49.4 fL (35.1-46.3); Red Blood Cell Count 3.11 M/mm3 (4.30-5.90); White Blood Cell Count 8.81 K/mm3 (4.00-11.30)
[2020-09-07 04:34] LABS: Albumin, Blood 2.3 g/dL (3.4-5.0); Anion Gap 3 mmol/L (6-16); Blood Urea Nitrogen 10 mg/dL (8-24); Bun/Creatinine Ratio 13.8 (12.0-20.0); CO2, Blood 29 mmol/L (21-32); Calcium, Blood 8.2 mg/dL (8.5-10.1); Chloride, Blood 108 mmol/L (98-108); Creatinine, Blood 0.72 mg/dL (0.60-1.20); Glomerular Filtration Rate >60 (60-); Glucose, Blood 125 mg/dL (70-99); Phosphorus, Blood 3.1 mg/dL (2.5-4.9); Potassium, Blood 3.9 mmol/L (3.5-5.5); Sodium, Blood 140 mmol/L (136-145)
--- NOTE | 2020-09-07 06:02 | NUR ---
SHIFT SUMMARY PT COMPLETELY A&O X4 THIS AM AFTER EPISODES OF CONFUSION/LETHARGY THIS SHIFT, SEE PREVIOUS NOTE. BP's LOW, OTHERWISE VSS. MONITOR SHOWS NSR, HR 60's-80's. LUNG SOUNDS CLEAR. SPO2 > 92% ON RA. R GROIN & L TIBIAL ACCESS SITES BOTH W/ BLEEDS REQUIRING MANUAL PRESSURE THIS SHIFT, SEE PREVIOUS NOTES. BOTH SITES W/ NO FURTHER BLEEDING NOTED. BILAT PEDAL & TIBIAL PULSES PRESENT W/ DOPPLER. PT MEDICATED FOR LLE PAIN MULTIPLE TIMES T/O SHIFT W/ PT REPORT OF NO PAIN UPON 2330 PAIN REASSSESSMENT. PT PAIN THEN INCREASING AGAIN, REQUIRING FURTHER MEDICATING, SEE EMAR. HEPARIN GTT INFUSING PER ORDERS. HEPARIN GTT PLACED ON STANDBY FOR APPROX 1 HR THIS SHIFT AFTER CRITICAL APTT, SEE EMAR. HEPARIN GTT INFUSING AT THIS TIME. WILL CONTINUE TO MONITOR & PROVIDE CARE UNTIL REPORT OFF TO DAY SHIFT RN.
--- NOTE | 2020-09-07 07:36 | NUR ---
ASSUMED CARE: PT RESTING QUIETLY AT THIS TIME. NSR WITH BBB IN 60S. HEPARIN GTT RUNNING AND DOSE VERIFIED WITH NIGHT RN. PULSES FELT IN BILATERAL FEET FAINTLY, WITH HAND. PT DENIES NEEDS OR CONCERNS AT THIS TIME.
--- NOTE | 2020-09-07 09:00 | NUR ---
DR FELIX CAME TO SEE PT. AWARE THAT PT'S BLOOD PRESSURES HAVE BEEN SOFT WITH SYSTOLICS CONSITENTLY IN THE 90S. DR FELIX SPOKE WITH PT ABOUT DIETARY NEEDS AND DIABETIC EDUCATION. PT/OT CONSULT ORDERED DUE TO PT BEING IN BED LAST FEW DAYS WITH SHEATHS AND TPA. HEPARIN GTT ONLY AT THIS TIME. DISCUSSED BPS WITH RETIREMENT PLAN SPECIALIST WELL. WILL CONTINUE TO MONITOR
--- NOTE | 2020-09-07 12:16 | NUR ---
DR NORRIS CALLED TO CHECK ON PT AND IS AWARE THAT PT IS C/O NEW PAIN IN LEFT ANKLE AND LEFT BOTTOM OF FOOT. DR ORDERED ARTERIAL DUPLEX. ALSO AWARE THAT PT'S BPS HAVE BEEN SOFT WITH MAPS 55 AND ABOVE. AWARE THAT DR FELIX ORDERED MED STATUS AND DR NORRIS IS AGREEABLE TO THIS. STATES HE WILL COME SEE PT TOMORROW. PT AWARE OF THIS CONVERSATION
--- NOTE | 2020-09-07 14:04 | NUR ---
PHYSICAL THERAPY TOOK PT OUT OF UNIT TO WORK WITH HIM AND HIS SISTER, WHO IS HIS ACCOUNT ADMINISTRATOR. THEY ARE PRACTICING TECHNIQUES WITH STAIRS PER THERAPIST
--- NOTE | 2020-09-07 18:26 | NUR ---
SHIFT SUMMARY: PT HAS WORKED WITH PT/OT. THEIR RECOMMENDATIONS HAS BEEN RELAYED TO DR FELIX INCLUDING EQUIPMENT NEEDED FOR HOME. ASKED PT MULTIPLE TIMES TODAY IF CATHETER CAN BE REMOVED AND HE HAS DECLINED MULTIPLE TIMES. STATES HE WANTS TO KEEP IT UNTIL HE IS ABLE TO MOBILIZE BETTER. SALINE LOCKED, ON PO XARELTO. MEDICATED X2 FOR PAIN THIS SHIFT. NO FURTHER NEEDS OR CONCERNS.
--- NOTE | 2020-09-07 20:14 | NUR ---
ASSUMPTION OF CARE PT SLEEPING IN BED, AROUSES TO VERBAL STIMULI, ORIENTED x4, VSS. PT REPORTS 6/10 PAIN TO LEFT FOOT, PRN PERCOCET PROVIDED. L FOOT RED AND WARM, GAUZE DRESSING TO L GREAT TOE, POSSIBLE VASCULAR ULCER NOTED TO L LATERAL FOOT. SKIN OTHERWISE IN TACT. PT TOLERATING PO INTAKE, SWALLOWS PILLS WHOLE WITH WATER. LEI IN PLACED, ENCOURAGED PT TO ALLOW NURSING STAFF TO DC LEI, EXPLAINED RISK OF INFECTION, PT REFUSED LEI DC, STS HE WANTS TO KEEP IT IN FOR THE NIGHT. EXPLAINED TO PT LEI WOULD NEED TO BE TAKEN OUT IN THE MORNING, PT VERBALIZED UNDERSTANDING. PT MOVES ALL EXTREMETIES, POSITIONS SELF IN BED INDEPENDENTLY, CALL LIGHT WITHIN REACH.
--- NOTE | 2020-09-08 00:28 | NUR ---
REPORT GIVEN TO KHOI SUMNER
--- NOTE | 2020-09-08 00:55 | NUR ---
ASSUMED CARE: ASSUMED CARE OF PT; REPORT FROM TINA SUMNER. PT RESTING QUIETLY. NO SIGNS OF DISTRESS.
--- NOTE | 2020-09-08 04:11 | NUR ---
EASILY AROUSED FOR LAB DRAW. STATES HAS BEEN SLEEPING GOOD AND FEELS PRETTY GOOD. DENIES PAIN AT THIS TIME. VSS. WILL CONTINUE TO MONITOR.
[2020-09-08 04:36] LABS: Albumin, Blood 2.2 g/dL (3.4-5.0); Anion Gap 5 mmol/L (6-16); Blood Urea Nitrogen 16 mg/dL (8-24); Bun/Creatinine Ratio 21.9 (12.0-20.0); CO2, Blood 28 mmol/L (21-32); Calcium, Blood 8.3 mg/dL (8.5-10.1); Chloride, Blood 106 mmol/L (98-108); Creatinine, Blood 0.73 mg/dL (0.60-1.20); Glomerular Filtration Rate >60 (60-); Glucose, Blood 57 mg/dL (70-99); Phosphorus, Blood 2.6 mg/dL (2.5-4.9); Potassium, Blood 3.3 mmol/L (3.5-5.5); Sodium, Blood 139 mmol/L (136-145)
--- NOTE | 2020-09-08 10:13 | NUR ---
SEE PAPER DOWN TIME CHARTING. ASSUMED CARE AT 0700, A/A/OX4 SITTING UP IN BED. SEE PAPER NURSING NOTES FOR ASSESMENT.
--- NOTE | 2020-09-08 11:50 | NUR ---
REFUSES LUNCH TRAY, STATES "THIS IS NOTHING THAT I ORDERED". TRAY REMOVED, PT STATES CALLED BROTHER TO BRING FOOD.
--- NOTE | 2020-09-08 13:20 | NUR ---
CALLED TO GET A REPORT BUT RN IS ON BREAK
--- NOTE | 2020-09-08 14:00 | NUR ---
PT TRANSFERRED TO [place] [id number] FROM ICU 7. PT 1 P ASSIST USING FWW. PT IS ON ADA DIET; ACHS. PT AOX4. PT HAD REVASCULARIZATION DONE ON THE AND L GREAT TOE AMPUTATION ON THE . VERY RED L TOE SITE. PULSES PALPABLE VIA DOPPLER- EDEMATOUS LEFT LOWER LIMB. DC'D QUIQUE PRIOR TRANSFER. URINAL AT BEDSIDE. CALL LIGHT WITHIN REACH AND BED IS IN THE LOWEST POSITION.
--- NOTE | 2020-09-08 14:06 | NUR ---
REPORT TO MEDICAL FLOOR RN TO ASSUME CARE.
--- NOTE | 2020-09-08 18:14 | NUR ---
SHIFT SUMMARY PT AOX4; PT CANNOT RECALL THE DATE HE CAME HERE AT THE HOSPITAL; PT STATED IT'S ONLY BEEN SEVERAL DAYS SINCE HE CAME HERE. PT ALSO CONCERNS ABOUT HIS LEFT TOE- SEE PIC. NEEDS TO FOLLOW UP TO DR NORRIS. NOTED DISCOLORATION AND NWB. VERY EDEMATOUS ON THE SITE; ENCOURAGE ELAVATION. DR FELIX SAW THE FOOT THIS MORNING PER ALVIN FISHER NET. BED IS IN THE LOWEST POSITION AND CALL LIGHTS WITHIN REACH
--- NOTE | 2020-09-09 06:03 | NUR ---
LATE ENTRY FOR 0400, CALL PLACED TO HOSPITALIST. PT BP 81/47. PT AA0X3. DENIES FEELING SOB, LIGHTHEADED OR DIZZY. STATES HE FEELS "FINE". REPORTED BP TO DR. MCCOY. NEW ORDER FOR NS 500ML/HR X 1L. THEN NS 200MLS/HR. CONT TO HOLD ANTIHYPERTENSIVES PER ORDERS.
--- NOTE | 2020-09-09 07:27 | NUR ---
SHIFT SUMMARY: AAOX3. BP CAME UP TO 130/61 AFTER 1L NS BOLUS. NS CURRENTLY INFUSING AT 200MLS/HR. PT JD WELL. MED FOR PAIN W/ DILAUDID AND PERCOCET EACH X1 EFFECTIVELY. L FOOT SWOLLEN, DISCOLORED, BLISTERING, AND NAIL MISSING ON 2ND TOE OF L FOOT- NAIL WAS INTACT AT START OF SHIFT. SEROUS FLUID WHEEPING FROM AREA WHERE NAIL CAME OFF. AMPUTATION SITE ON L FOOT W/INCISION EDGES APPOXIMATED AND SCABBED OVER. NO DRAINAGE. PEDAL PULSES THREADY. CAP REFILL < 3 SEC IN BLE. ENCOURAGED L FOOT ELEVATION. WILL CONT TO MONITOR.
[2020-09-09 08:20] LABS: Hematocrit 24.8 % (37.0-53.0); Hemoglobin 7.5 g/dL (13.5-17.5); Mean Corpuscular HGB 26.6 pg (26.0-34.0); Mean Corpuscular HGB Conc 30.2 g/dL (31.5-36.5); Mean Corpuscular Volume 88 fL (80-100); Mean Platelet Volume 9.4 fL (9.1-12.4); Platelet Count 165 K/mm3 (150-400); RDW Coefficient Variation 14.7 % (11.7-14.2); Red Blood Cell Count 2.82 M/mm3 (4.30-5.90); White Blood Cell Count 6.41 K/mm3 (4.00-11.30)
--- NOTE | 2020-09-09 18:23 | NUR ---
SHIFT SUMMARY PT ALERT ORIENTED X4. CALLS APPROPRIATELY; PT CONCERNED ABOUT HIS L FOOT; DR EFLIX AWARE AND WILL CONTACT DR ROJAS FOR TOMORROW- WITH THE AM NURSE. PT C.O PAIN; MEDICATED PER EMAR. VSS AND BP IS WNL. NO OTHER ACUTE CHANGES ON THIS SHIFT. BED IS IN THE LOWEST POSITION AND CALL LIGHTS WITHIN REACH.
[2020-09-10 04:59] LABS: Hematocrit 24.5 % (37.0-53.0); Hemoglobin 7.4 g/dL (13.5-17.5); Mean Corpuscular HGB 26.5 pg (26.0-34.0); Mean Corpuscular HGB Conc 30.2 g/dL (31.5-36.5); Mean Corpuscular Volume 88 fL (80-100); Mean Platelet Volume 9.9 fL (9.1-12.4); Platelet Count 199 K/mm3 (150-400); RDW Coefficient Variation 14.8 % (11.7-14.2); RDW Standard Deviation 47.8 fL (35.1-46.3); Red Blood Cell Count 2.79 M/mm3 (4.30-5.90); White Blood Cell Count 6.68 K/mm3 (4.00-11.30)
--- NOTE | 2020-09-10 05:25 | NUR ---
SHIFT SUMMARY: VSS. AFEB. AAOX3. ABLE TO COMMUNICATE NEEDS. REPORTS LLE PAIN MANAGED BY POSITIONING TONIGHT. APPEARS TO HAVE SLEPT WELL. DRESSING IN PLACE TO LLE, CDI. LLE TOES WARM, CAP REFILL < 3 SEC. R FEMORAL ACCESS SITE W/ DRESSING IN PLACE, AMT OF SANG DRAINAGE ON DRESSING UNCHANGED. PT DENIES PAIN AT SITE. MOOD IS GOOD. UP AMB W/ SBA. BEARING WT JD ON THE L FOOT. NO ACUTE CHANGES TONIGHT. WILL CONT TO MONITOR.
[2020-09-10 05:28] LABS: Anion Gap 5 mmol/L (6-16); Blood Urea Nitrogen 11 mg/dL (8-24); Bun/Creatinine Ratio 16.8 (12.0-20.0); CO2, Blood 27 mmol/L (21-32); Calcium, Blood 8.5 mg/dL (8.5-10.1); Chloride, Blood 112 mmol/L (98-108); Creatinine, Blood 0.66 mg/dL (0.60-1.20); Glomerular Filtration Rate >60 (60-); Glucose, Blood 64 mg/dL (70-99); Potassium, Blood 3.1 mmol/L (3.5-5.5); Sodium, Blood 144 mmol/L (136-145)
--- NOTE | 2020-09-10 14:14 | NUR ---
DR. ROJAS AT [facility] TODAY, ASKED THAT HIS PAPER PRESCRIPTIONS FOR CLINDAMYCIN AND NORCO BE GIVEN TO PATIENT SO THEY CAN BE FILLED AT D/C. SCRIPT GIVEN TO PATIENT AND THESE MEDICATIONS WERE DISCUSSED.
--- NOTE | 2020-09-10 19:32 | NUR ---
PATIENT A/O X4, CAN BE FORGETFUL AT TIMES. WORKED WITH PT/OT TODAY WHO ARE RECOMMENDING HOME HEALTH. DRESSING TO L FOOT CHANGED THIS SHIFT USING XEROFORM, EXUDRY AND KERLIX. HEEL PROTECTOR IN PLACE TO L FOOT. PATIENT NWB TO L FOOT, WALKING BOOT WHEN UP. PERCOCET GIVEN TO TREAT PAIN. TOLERATING ADA DIET, ACHS BLOOD SUGARS. CALM AND COOPERATIVE WITH CARE, CALLS APPROPRIATELY FOR ASSISTANCE.
--- NOTE | 2020-09-11 06:20 | NUR ---
LICENSED PHARMACIST SUMMARY PT A&OX4, ABLE TO MAKE NEEDS KNOWN. PLEASANT AND COOPERATIVE TO CARE. MEDICATED FOR L FOOT PAIN PER EMAR. WOUND DRESSING TO L FOOT CDI. DENIES CP, SOB, OR N&V. CALM AND RESTED IN BED T/O SHIFT. PT NWB ON L FOOT, WALKING BOOT WHEN UP. HEEL PROTECTOR IN PLACE TO L FOOT AT THIS TIME. CALL LIGHT WITHIN REACH. WILL CONT TO MONITOR PT FOR ANY CHANGES.
[2020-09-11] MEDS ORDERED: CLIN150 PO (12:26)
[2020-09-11] MEDS ORDERED: Norco 7.5-3251 EACH PO (12:27)
[2020-09-11] MEDS ORDERED: DOCUZEN 8.6-501 EACH PO (12:28)
--- NOTE | 2020-09-11 16:25 | NUR ---
2386 PT DISCHARGED HOME WITH HH VIA PERSONAL VEHICLE ACCOMPANIED AND DRIVEN BY BROTHER. ESCORTED VIA W/C BY VOLUNTEER. IV REMOVED. D/C INSTRUCTIONS REVIEWED WITH PT AND COPY PROVIDED. DRESSING TO L FOOT AND HEEL CHANGED, POST OP SHOE IN PLACE AT TIME OF D/C, L FOOT WITH NO S/SX OF INFECTION. NO NEW CHANGES OR CONCERNS.
== END 2020-09-11 15:39 | disposition home health service (06) | DRG 617 ==
LOC: ORSCMMR 08-30 13:24 → SURS 08-30 13:24 → EDSTATUS 08-30 15:00 → ORSCMMR 08-30 15:00 → ORD 08-30 15:00 → ORSCMMR 08-30 16:19 → SURS 08-30 16:19 → ORSCMMR 09-02 15:40 → SURS 09-02 15:40 → MEDS 09-02 15:41 → SURS 09-02 15:41 → ICUE 09-02 15:41 → SURS 09-02 15:42 → ORSCMMR 09-02 15:42 → ICUE 09-04 19:09 → MEDS 09-08 14:06
PROVIDERS: Family Medicine; Hospitalist; Internal Medicine; Nurse Practitioner Acute Care; Pharmacist; Podiatrist Foot & Ankle Surgery; Radiology Diagnostic Radiology; ADMIT Internal Medicine
PROC: 0Y6Q0Z0 Detachment at Left 1st Toe, Complete, Open Approach (ICD-10-PCS; principal; 2020-08-31 12:30)
PROC: 047 Lower Arteries, Dilation (ICD-10-PCS; 2020-09-04)
PROC: 04S Lower Arteries, Reposition (ICD-10-PCS; 2020-09-04)
PROC: 04CN3ZZ Extirpation of Matter from Left Popliteal Artery, Percutaneous Approach (ICD-10-PCS; 2020-09-04)
PROC: 047L3D1 Dilation of Left Femoral Artery with Intraluminal Device, using Drug-Coated Balloon, Percutaneous Approach (ICD-10-PCS; 2020-09-04)
PROC: 047N3Z1 Dilation of Left Popliteal Artery using Drug-Coated Balloon, Percutaneous Approach (ICD-10-PCS; 2020-09-04)
PROC: 047S3ZZ Dilation of Left Posterior Tibial Artery, Percutaneous Approach (ICD-10-PCS; 2020-09-04)
PROC: 3E05317 Introduction of Other Thrombolytic into Peripheral Artery, Percutaneous Approach (ICD-10-PCS; 2020-09-05)
PROC: 04CN3ZZ Extirpation of Matter from Left Popliteal Artery, Percutaneous Approach (ICD-10-PCS; 2020-09-06)
PROC: 04CQ3ZZ Extirpation of Matter from Left Anterior Tibial Artery, Percutaneous Approach (ICD-10-PCS; 2020-09-06)
PROC: 047N3ZZ Dilation of Left Popliteal Artery, Percutaneous Approach (ICD-10-PCS; 2020-09-06)
PROC: 047Q3ZZ Dilation of Left Anterior Tibial Artery, Percutaneous Approach (ICD-10-PCS; 2020-09-06)
PROC: 047S3ZZ Dilation of Left Posterior Tibial Artery, Percutaneous Approach (ICD-10-PCS; 2020-09-06)
PROC: 04CU3ZZ Extirpation of Matter from Left Peroneal Artery, Percutaneous Approach (ICD-10-PCS; 2020-09-06)
PROC: 04CS3ZZ Extirpation of Matter from Left Posterior Tibial Artery, Percutaneous Approach (ICD-10-PCS; 2020-09-06)
PROC: 3E05317 Introduction of Other Thrombolytic into Peripheral Artery, Percutaneous Approach (ICD-10-PCS; 2020-09-06)
PROC: B41G1ZZ Fluoroscopy of Left Lower Extremity Arteries using Low Osmolar Contrast (ICD-10-PCS; 2020-09-06)
DX: E11.621 Type 2 diabetes mellitus with foot ulcer (principal); I96 Gangrene, not elsewhere classified; I73.9 Peripheral vascular disease, unspecified; E03.9 Hypothyroidism, unspecified; E11.42 Type 2 diabetes mellitus with diabetic polyneuropathy; E78.5 Hyperlipidemia, unspecified; G89.29 Other chronic pain; I10 Essential (primary) hypertension; I25.10 Atherosclerotic heart disease of native coronary artery without angina pectoris; I70.209 Unspecified atherosclerosis of native arteries of extremities, unspecified extremity; Z85.51 Personal history of malignant neoplasm of bladder; Z85.828 Personal history of other malignant neoplasm of skin; D64.9 Anemia, unspecified; Z79.01 Long term (current) use of anticoagulants; E11.65 Type 2 diabetes mellitus with hyperglycemia; Z95.5 Presence of coronary angioplasty implant and graft
CPT/HCPCS: 36415; 37186; 37211; 37213; 37214; 37225; 37226; 37228; 37229; 37233; 51702; 75710; 75716; 75774; 76937; 80048; 80061; 80069; 81003; 82947; 83036; 84132; 85014; 85018; 85025; 85027; 85049; 85347; 85384; 85610; 85730; 88305; 88311; 93926; 97110; 97116; 97162; 97166; 97530; 97535; 99152; 99153; A9270; A9270-GY; C1714; C1725; C1751; C1757; C1760; C1769; C1874; C1885; C1887; C1894; C2623; J0690; J1170; J1644; J1650; J1815; J2250; J2704; J2997; J3010; J3480; J7030; J7040; J7042; J7050; J7120; Q9967

== ENCOUNTER 2020-10-20 12:29 | Inpatient (IN) | payer OTHER ==
[~2020-10-20] VITALS: Ht 177.8 cm; Wt 76.4 kg
[~2020-10-20 12:29] MED LIST changes: +CLIN150 PO; +DOCUZEN 8.6-501 EACH PO; +Norco 7.5-3251 EACH PO
[2020-10-20 13:04] LABS: BASOPHILS ABSOLUTE AUTO 0.08 K/mm3 (0.00-0.23); BASOPHILS PERCENT AUTO 1 % (0-2); EOSINOPHILS ABSOLUTE AUTO 0.14 K/mm3 (0.00-0.68); EOSINOPHILS PERCENT AUTO 1 % (0-6); IMMATURE GRAN ABSOLUTE AUTO 0.03 K/mm3 (0.00-0.10); IMMATURE GRAN PERCENT AUTO 0 % (0-1); LYMPHOCYTES ABSOLUTE AUTO 1.21 K/mm3 (0.84-5.20); LYMPHOCYTES PERCENT AUTO 12 % (21-46); MONOCYTES ABSOLUTE AUTO 0.56 K/mm3 (0.16-1.47); MONOCYTES PERCENT AUTO 6 % (4-13); Mean Corpuscular HGB 25.3 pg (26.0-34.0); Mean Corpuscular HGB Conc 30.2 g/dL (31.5-36.5); Mean Corpuscular Volume 84 fL (80-100); Mean Platelet Volume 9.3 fL (9.1-12.4); NEUTROPHILS ABSOLUTE AUTO 7.71 K/mm3 (1.96-9.15); NEUTROPHILS PERCENT AUTO 79 % (41-73); Platelet Count 298 K/mm3 (150-400); RDW Standard Deviation 46.1 fL (35.1-46.3); Red Blood Cell Count 5.14 M/mm3 (4.30-5.90); White Blood Cell Count 9.73 K/mm3 (4.00-11.30)
[2020-10-20 13:39] LABS: Alanine Aminotransfer (ALT/SGP 32 U/L (12-78); Albumin, Blood 3.5 g/dL (3.4-5.0); Albumin/Globulin Ratio 0.7 (0.8-1.8); Alk Phos 121 U/L (50-136); Anion Gap 8 mmol/L (6-16); Aspartate Aminotrans (AST/SGOT 21 U/L (12-37); Bilirubin, Total 0.3 mg/dL (0.1-1.0); Blood Urea Nitrogen 20 mg/dL (8-24); Bun/Creatinine Ratio 28.1 (12.0-20.0); CO2, Blood 23 mmol/L (21-32); Calcium, Blood 9.6 mg/dL (8.5-10.1); Chloride, Blood 102 mmol/L (98-108); Creatinine, Blood 0.71 mg/dL (0.60-1.20); Globulin, Blood 4.9 g/dL (2.2-4.0); Glomerular Filtration Rate >60 (60-); Glucose, Blood 347 mg/dL (70-99); Potassium, Blood 4.9 mmol/L (3.5-5.5); Sodium, Blood 133 mmol/L (136-145); Total Protein, Blood 8.4 g/dL (6.4-8.2)
--- NOTE | 2020-10-20 18:48 | NUR ---
PT HERE FROM ER VIA GURNEY. PT TRANSFERRED SELF TO BED WITH CANE. PT IV ABX INFUSING. PT WEIGHED WHILE STANDING. PT GIVEN PAJAMA BOTTOMS PER HIS REQ, GIVEN EXTRA PILLOWS TO ELEVATE LE. PT SPEECH CLEAR. ORDERING MACHINE OPERATOR ALSO IN ROOM ASSISTING PT. WILL REPORT TO LINDSEY SUMNER.
[2020-10-21] MEDS ORDERED: METO25ER PO (00:19)
[2020-10-21] MEDS ORDERED: Vitamin D2000 UNIT PO (00:20)
[2020-10-21] MEDS ORDERED: Norco 5-325 Ta1 EACH PO (00:22)
[2020-10-21] MEDS ORDERED: SERT100 PO (00:23)
--- NOTE | 2020-10-21 02:57 | NUR ---
PT REPORTS HE HAS BEEN USING A CANE TO AMBULATE SINCE HAVING HIS LEFT GREAT TOE AMPUTATED TO ADHERE TO WEIGHT BEARING RESTRICTIONS. HE STATES THAT HE IS ABLE TO AMBULATE WITHOUT THE CANE. HE REPORTS THAT HIS SISTER, KHAI, IS HIS CAREGIVER AND THAT SHE IS AWARE OF HIS MEDICATION LIST. MEDICATIONS UPDATED PER PRINTED LIST PT BROUGHT WITH HIM. WILL ASK DAY SHIFT RN TO CONFIRM MEDICATIONS WITH KHAI.
--- NOTE | 2020-10-21 05:03 | NUR ---
SHIFT SUMMARY: RELL IS A&OX4. VSS, NO ACUTE EVENTS OVERNIGHT. HE IS ABLE TO MAKE HIS NEEDS KNOWN AND TOLERATE THE SCDs. DRESSING TO LEFT FOOT C/D&I. DR. ROJAS TO CONSULT TODAY. IV TO L AC PATENT. HE WAS MADE NPO AT MIDNIGHT. HE IS LYING IN BED WITH HIS CALL LIGHT IN REACH. WILL REPORT TO DAY SHIFT RN.
[2020-10-21 05:28] LABS: BASOPHILS ABSOLUTE AUTO 0.06 K/mm3 (0.00-0.23); BASOPHILS PERCENT AUTO 1 % (0-2); EOSINOPHILS ABSOLUTE AUTO 0.22 K/mm3 (0.00-0.68); EOSINOPHILS PERCENT AUTO 3 % (0-6); Hematocrit 34.8 % (37.0-53.0); Hemoglobin 10.6 g/dL (13.5-17.5); IMMATURE GRAN ABSOLUTE AUTO 0.02 K/mm3 (0.00-0.10); IMMATURE GRAN PERCENT AUTO 0 % (0-1); LYMPHOCYTES ABSOLUTE AUTO 1.31 K/mm3 (0.84-5.20); LYMPHOCYTES PERCENT AUTO 17 % (21-46); MONOCYTES ABSOLUTE AUTO 0.54 K/mm3 (0.16-1.47); MONOCYTES PERCENT AUTO 7 % (4-13); Mean Corpuscular HGB 25.2 pg (26.0-34.0); Mean Corpuscular HGB Conc 30.5 g/dL (31.5-36.5); Mean Corpuscular Volume 83 fL (80-100); Mean Platelet Volume 9.3 fL (9.1-12.4); NEUTROPHILS ABSOLUTE AUTO 5.75 K/mm3 (1.96-9.15); NEUTROPHILS PERCENT AUTO 73 % (41-73); Platelet Count 280 K/mm3 (150-400); RDW Coefficient Variation 14.9 % (11.7-14.2); RDW Standard Deviation 45.1 fL (35.1-46.3); Red Blood Cell Count 4.21 M/mm3 (4.30-5.90)
[2020-10-21 05:56] LABS: Anion Gap 6 mmol/L (6-16); Blood Urea Nitrogen 22 mg/dL (8-24); Bun/Creatinine Ratio 31.4 (12.0-20.0); CO2, Blood 29 mmol/L (21-32); Chloride, Blood 106 mmol/L (98-108); Glomerular Filtration Rate >60 (60-); Glucose, Blood 140 mg/dL (70-99); Sodium, Blood 141 mmol/L (136-145)
[2020-10-21 10:48] LABS: Influenza A, PCR Negative (NEGATIVE); Influenza B, PCR Negative (NEGATIVE); Resp Syncytial Virus, PCR Negative (NEGATIVE); SARS-Cov-2 (COVID-19) PCR, MMC Negative (NEGATIVE)
--- NOTE | 2020-10-21 10:58 | NUR ---
TELEPHONE CALL TO KHAI CASTANON, PT'S SISTER, TO CONFIRM MEDICATIONS. KHAI WILL GET LIST AND CALL ME BACK.
--- NOTE | 2020-10-21 12:14 | NUR ---
PT WENT TO THE OR.
--- NOTE | 2020-10-21 13:35 | NUR ---
10/21/20 1335 Dave Villanueva PT ON SCHEDULED ANTIBIOTICS
--- NOTE | 2020-10-21 15:15 | NUR ---
PT RETURNED TO ROOM FROM RECOVERY, DENIES PAIN, DENIES N&V, VSS, A&OX4, PLEASANT, COOPERATIVE, SITTING UP IN BED WATCHING TV
[2020-10-21] MEDS ORDERED: PANT20 PO (17:34)
--- NOTE | 2020-10-21 18:13 | NUR ---
SHIFT SUMMARY PT A&OX4, VSS/RA, S/P LEFT TRANSMETATARSAL AMPUTATION, DRESSING CDI. DENIES PAIN AT THIS TIME. JD PO, ADA DIET, DENIES N&V; DENTURES IN. VOIDING IN BEDSIDE URINAL. IV ABX INFUSING PER EMAR. WILL REPORT TO ONCOMING NOC RN.
[2020-10-22 05:04] LABS: BASOPHILS ABSOLUTE AUTO 0.05 K/mm3 (0.00-0.23); BASOPHILS PERCENT AUTO 1 % (0-2); EOSINOPHILS ABSOLUTE AUTO 0.03 K/mm3 (0.00-0.68); EOSINOPHILS PERCENT AUTO 0 % (0-6); IMMATURE GRAN ABSOLUTE AUTO 0.03 K/mm3 (0.00-0.10); IMMATURE GRAN PERCENT AUTO 0 % (0-1); LYMPHOCYTES ABSOLUTE AUTO 1.21 K/mm3 (0.84-5.20); LYMPHOCYTES PERCENT AUTO 12 % (21-46); MONOCYTES ABSOLUTE AUTO 0.51 K/mm3 (0.16-1.47); MONOCYTES PERCENT AUTO 5 % (4-13); Mean Corpuscular HGB 25.3 pg (26.0-34.0); Mean Corpuscular HGB Conc 30.3 g/dL (31.5-36.5); Mean Corpuscular Volume 83 fL (80-100); Mean Platelet Volume 9.4 fL (9.1-12.4); NEUTROPHILS ABSOLUTE AUTO 8.69 K/mm3 (1.96-9.15); NEUTROPHILS PERCENT AUTO 83 % (41-73); Platelet Count 273 K/mm3 (150-400); RDW Coefficient Variation 14.7 % (11.7-14.2); RDW Standard Deviation 45.1 fL (35.1-46.3); Red Blood Cell Count 3.96 M/mm3 (4.30-5.90); White Blood Cell Count 10.52 K/mm3 (4.00-11.30)
[2020-10-22 05:24] LABS: Albumin, Blood 2.7 g/dL (3.4-5.0); Anion Gap 3 mmol/L (6-16); Blood Urea Nitrogen 32 mg/dL (8-24); Bun/Creatinine Ratio 35.9 (12.0-20.0); CO2, Blood 29 mmol/L (21-32); Calcium, Blood 8.6 mg/dL (8.5-10.1); Chloride, Blood 104 mmol/L (98-108); Creatinine, Blood 0.89 mg/dL (0.60-1.20); Glomerular Filtration Rate >60 (60-); Glucose, Blood 299 mg/dL (70-99); Phosphorus, Blood 3.5 mg/dL (2.5-4.9); Potassium, Blood 4.1 mmol/L (3.5-5.5); Sodium, Blood 136 mmol/L (136-145); Vancomycin, Trough 18.2 ug/mL (5.0-10.0)
--- NOTE | 2020-10-22 17:20 | NUR ---
SUMMARY: NO ACUTE CHANGE TODAY. VSS, A/O. PT WORKED WELL WITH PT/OT TODAY. FOLLOWING NWB RESTRICTIONS. PAIN SEEMS TO BE WELL MANAGED WITH 2 OXYCODONE. PT DENIED NEED FOR ICE, ENCOURAGING ELEVATION. ABX INFUSED. CONSULT CALLED FOR DR. NORRIS. PLAN IS POSSIBLE HH. NO SAFETY CONCERNS, WILL REPORT TO WILBERTO SUMNER.
--- NOTE | 2020-10-23 03:15 | NUR ---
SHIFT SUMMARY: POD 2 LEFT FOOT TOES AMPUTATIONS PATIENT IS ALERT AND ORIENTED X4 WHILE AWAKE. HE HAS BEEN SLEEPING MAJORITY OF THE SHIFT, BUT IS EASILY AROUSABLE. VITALS ARE WNL AND IS ON RA. PAIN IS CONTROLLED WITH PERCOCET AND IV FENT FOR BREAKTHROUGH. HE IS JD PO DIET AND DENIES NAUSEA/VOMITING. HE VOIDS IN URNAL AT BEDSIDE. HE HAS FLUIDS AND IV ABX INFUSING PER ORDERS. HIS LEFT FOOT DRESSING IS C/D/I. HIS LEFT FOOT IS NON-WEIGHTBEARING. HE IS A SBA WITH A WALKER WHEN MOVING TO BEDSIDE COMMODE. HE CALLS APPROPRIATELY. CALL LIGHT WITHIN REACH. THE PLAN IS TO BE CONSULTED WITH DR. NORRIS AND THEN POSSIBLY DISCHARGED TO [facility].
[2020-10-23 05:31] LABS: Vancomycin, Trough 20.4 ug/mL (5.0-10.0)
--- NOTE | 2020-10-23 05:48 | NUR ---
RECIEVED A CRITICAL LAB VALUE AT 0531 TODAY 10/23/2020. PT DENIES NO CHANGES OR SYMPTOMS. THE LAB VALUE WAS 20.4 OF VANCO. PHARMACY JUST DISCONTINUED THE VANCO FOR THIS MORNING THAT WAS SCHEDULED. PATIENT HAS CALL LIGHT WITHIN REACH.
--- NOTE | 2020-10-23 17:25 | NUR ---
SUMMARY: NO CHANGE. VSS, A/O. WORKED WITH PT/OT. PAIN SEEMS TO BE MANAGED, SURGICAL SITE WNL. DR. ZACARIAS VISITED PT, DR. NORRIS'S PA. NO NEW ORDERS. PLAN IS TO DC TO TOMORROW
--- NOTE | 2020-10-24 04:44 | NUR ---
SHIFT SUMMARY NO ACUTE CHANGES THIS SHIFT, MEDICATED 2X FOR PAIN, REC 1X ORDER FOR MELATONIN FOR SLEEP, SLEEPING AT THIS TIME, CALL LIGHT IN REACH, WILL CONT TO MONITOR UNTIL REPORT GIVEN TO DAY RN.
[2020-10-24 05:27] LABS: BASOPHILS ABSOLUTE AUTO 0.05 K/mm3 (0.00-0.23); BASOPHILS PERCENT AUTO 1 % (0-2); EOSINOPHILS ABSOLUTE AUTO 0.32 K/mm3 (0.00-0.68); EOSINOPHILS PERCENT AUTO 5 % (0-6); Hematocrit 30.7 % (37.0-53.0); Hemoglobin 9.1 g/dL (13.5-17.5); IMMATURE GRAN ABSOLUTE AUTO 0.01 K/mm3 (0.00-0.10); IMMATURE GRAN PERCENT AUTO 0 % (0-1); LYMPHOCYTES ABSOLUTE AUTO 0.98 K/mm3 (0.84-5.20); LYMPHOCYTES PERCENT AUTO 15 % (21-46); MONOCYTES ABSOLUTE AUTO 0.49 K/mm3 (0.16-1.47); MONOCYTES PERCENT AUTO 7 % (4-13); Mean Corpuscular HGB Conc 29.6 g/dL (31.5-36.5); Mean Corpuscular Volume 84 fL (80-100); Mean Platelet Volume 9.3 fL (9.1-12.4); NEUTROPHILS ABSOLUTE AUTO 4.89 K/mm3 (1.96-9.15); NEUTROPHILS PERCENT AUTO 73 % (41-73); Platelet Count 253 K/mm3 (150-400); RDW Coefficient Variation 14.7 % (11.7-14.2); RDW Standard Deviation 45.5 fL (35.1-46.3); Red Blood Cell Count 3.64 M/mm3 (4.30-5.90); White Blood Cell Count 6.74 K/mm3 (4.00-11.30)
[2020-10-24 05:45] LABS: Albumin, Blood 2.6 g/dL (3.4-5.0); Anion Gap 4 mmol/L (6-16); Blood Urea Nitrogen 14 mg/dL (8-24); Bun/Creatinine Ratio 20.7 (12.0-20.0); CO2, Blood 29 mmol/L (21-32); Calcium, Blood 8.5 mg/dL (8.5-10.1); Chloride, Blood 110 mmol/L (98-108); Creatinine, Blood 0.68 mg/dL (0.60-1.20); Glomerular Filtration Rate >60 (60-); Glucose, Blood 116 mg/dL (70-99); Phosphorus, Blood 3.5 mg/dL (2.5-4.9); Potassium, Blood 4.1 mmol/L (3.5-5.5); Sodium, Blood 143 mmol/L (136-145); Vancomycin, Trough 13.3 ug/mL (5.0-10.0)
[2020-10-24] MEDS ORDERED: CLIN150 PO (14:28)
[2020-10-24] MEDS ORDERED: Percocet 5-3251 EACH PO (14:29)
[2020-10-24] MEDS ORDERED: PROBIOTIC PO (14:29)
--- NOTE | 2020-10-24 15:48 | NUR ---
PT DISCHARGED THE PT VERBALIZED UNDERSTANDING OF THE DC INSTRUCTIONS, [facility], THE DRYWALL STRIPPER SPENT A CONSIDERABLE TIME WITH THE PT SETTING UP FOLLOW UP APPOINTMENTS, THE PT APPEARED TO BE BREATHING EASILY ON RA AT THE TIME OF DC, THE PT WAS TRANSFERED VIA WHEELCHAIR TO THE FRONT DOOR
== END 2020-10-24 15:35 | disposition home or self-care (01) | DRG 474 ==
LOC: ER 12:29 → SURS 18:02
PROVIDERS: Emergency Medicine; Podiatrist Foot & Ankle Surgery; ADMIT Internal Medicine
PROC: 0Y6N0Z9 Detachment at Left Foot, Partial 1st Ray, Open Approach (ICD-10-PCS; principal; 2020-10-21 12:15)
DX: T87.44 Infection of amputation stump, left lower extremity (principal); A48.0 Gas gangrene; E11.52 Type 2 diabetes mellitus with diabetic peripheral angiopathy with gangrene; M86.172 Other acute osteomyelitis, left ankle and foot; E11.69 Type 2 diabetes mellitus with other specified complication; Z20.822 Contact with and (suspected) exposure to COVID-19; E11.42 Type 2 diabetes mellitus with diabetic polyneuropathy; Z85.51 Personal history of malignant neoplasm of bladder; E78.5 Hyperlipidemia, unspecified; I25.10 Atherosclerotic heart disease of native coronary artery without angina pectoris; I10 Essential (primary) hypertension; E03.9 Hypothyroidism, unspecified; Z95.5 Presence of coronary angioplasty implant and graft; Z87.891 Personal history of nicotine dependence
CPT/HCPCS: 0241U; 36415; 73630; 80048; 80053; 80069; 80202; 82947; 85025; 85651; 86140; 88307; 88311; 96374; 96375; 97112; 97116; 97162; 97165; 97535; 99285-25; A9270; C9113; J0692; J1100; J1170; J1885; J2250; J2370; J2405; J2704; J3010; J3370; J7030; J7040; J7120

== ENCOUNTER 2020-10-29 00:49 | Day surgery (SDC) | payer OTHER ==
[~2020-10-29 00:49] MED LIST changes: +METO25ER PO; +PANT20 PO; +PROBIOTIC PO; +Percocet 5-3251 EACH PO; +SERT100 PO; +Vitamin D2000 UNIT PO
== END 2020-10-29 23:10 | disposition home or self-care (01) ==
LOC: WOUND 00:49
DX: E11.621 Type 2 diabetes mellitus with foot ulcer (principal); L89.622 Pressure ulcer of left heel, stage 2; L97.522 Non-pressure chronic ulcer of other part of left foot with fat layer exposed; T87.89 Other complications of amputation stump; E11.59 Type 2 diabetes mellitus with other circulatory complications; I10 Essential (primary) hypertension; I25.10 Atherosclerotic heart disease of native coronary artery without angina pectoris; E78.5 Hyperlipidemia, unspecified; E03.9 Hypothyroidism, unspecified; K21.9 Gastro-esophageal reflux disease without esophagitis; Z87.891 Personal history of nicotine dependence; Z79.4 Long term (current) use of insulin
CPT/HCPCS: A9270; G0463

== ENCOUNTER 2020-11-05 00:25 | Day surgery (SDC) | payer OTHER | END 2020-11-05 22:40 | disposition home or self-care (01) | LOC: WOUND 00:25 | DX: L89.622 Pressure ulcer of left heel, stage 2 (principal); T87.81 Dehiscence of amputation stump; E11.621 Type 2 diabetes mellitus with foot ulcer; L97.521 Non-pressure chronic ulcer of other part of left foot limited to breakdown of skin; E11.52 Type 2 diabetes mellitus with diabetic peripheral angiopathy with gangrene; I96 Gangrene, not elsewhere classified; E11.59 Type 2 diabetes mellitus with other circulatory complications; I25.10 Atherosclerotic heart disease of native coronary artery without angina pectoris; I10 Essential (primary) hypertension; I25.2 Old myocardial infarction; E07.9 Disorder of thyroid, unspecified; Z20.822 Contact with and (suspected) exposure to COVID-19; Z89.432 Acquired absence of left foot; Z88.2 Allergy status to sulfonamides; Z79.4 Long term (current) use of insulin; Z79.02 Long term (current) use of antithrombotics/antiplatelets; Z79.82 Long term (current) use of aspirin; Z79.899 Other long term (current) drug therapy; Z79.01 Long term (current) use of anticoagulants; Y83.5 Amputation of limb(s) as the cause of abnormal reaction of the patient, or of later complication, without mention of misadventure at the time of the procedure | CPT/HCPCS: A9270 ==

== ENCOUNTER 2020-11-12 00:30 | Day surgery (SDC) | payer OTHER | END 2020-11-12 22:38 | disposition home or self-care (01) | LOC: WOUND 00:30 | DX: E11.621 Type 2 diabetes mellitus with foot ulcer (principal); L97.422 Non-pressure chronic ulcer of left heel and midfoot with fat layer exposed; E11.51 Type 2 diabetes mellitus with diabetic peripheral angiopathy without gangrene; I25.10 Atherosclerotic heart disease of native coronary artery without angina pectoris; K21.9 Gastro-esophageal reflux disease without esophagitis; E78.5 Hyperlipidemia, unspecified; E03.9 Hypothyroidism, unspecified; I10 Essential (primary) hypertension; I25.2 Old myocardial infarction; G25.0 Essential tremor; I70.213 Atherosclerosis of native arteries of extremities with intermittent claudication, bilateral legs; Z86.73 Personal history of transient ischemic attack (TIA), and cerebral infarction without residual deficits; Z89.422 Acquired absence of other left toe(s) | CPT/HCPCS: A9270 ==

== ENCOUNTER 2020-11-19 00:41 | Day surgery (SDC) | payer OTHER | END 2020-11-19 23:45 | LOC: WOUND 00:41 | DX: E11.621 Type 2 diabetes mellitus with foot ulcer (principal); L97.522 Non-pressure chronic ulcer of other part of left foot with fat layer exposed; E11.59 Type 2 diabetes mellitus with other circulatory complications; I73.9 Peripheral vascular disease, unspecified; I25.10 Atherosclerotic heart disease of native coronary artery without angina pectoris; I10 Essential (primary) hypertension; E78.5 Hyperlipidemia, unspecified; K21.9 Gastro-esophageal reflux disease without esophagitis; Z86.73 Personal history of transient ischemic attack (TIA), and cerebral infarction without residual deficits; Z89.422 Acquired absence of other left toe(s) | CPT/HCPCS: A9270 ==

== ENCOUNTER 2020-11-26 00:32 | Day surgery (SDC) | payer OTHER | END 2020-11-26 23:00 | disposition home or self-care (01) | LOC: WOUND 00:32 | DX: E11.621 Type 2 diabetes mellitus with foot ulcer (principal); L97.522 Non-pressure chronic ulcer of other part of left foot with fat layer exposed; E11.59 Type 2 diabetes mellitus with other circulatory complications; I73.9 Peripheral vascular disease, unspecified; I25.10 Atherosclerotic heart disease of native coronary artery without angina pectoris; K21.9 Gastro-esophageal reflux disease without esophagitis; E78.5 Hyperlipidemia, unspecified; I10 Essential (primary) hypertension; I25.2 Old myocardial infarction; Z86.73 Personal history of transient ischemic attack (TIA), and cerebral infarction without residual deficits; Z89.422 Acquired absence of other left toe(s) | CPT/HCPCS: A9270 ==

== ENCOUNTER 2020-12-03 00:31 | Day surgery (SDC) | payer OTHER | END 2020-12-03 23:56 | disposition home or self-care (01) | LOC: WOUND 00:31 | DX: E11.621 Type 2 diabetes mellitus with foot ulcer (principal); L89.622 Pressure ulcer of left heel, stage 2; E11.59 Type 2 diabetes mellitus with other circulatory complications; E11.51 Type 2 diabetes mellitus with diabetic peripheral angiopathy without gangrene; I25.10 Atherosclerotic heart disease of native coronary artery without angina pectoris; K21.9 Gastro-esophageal reflux disease without esophagitis; E78.5 Hyperlipidemia, unspecified; I10 Essential (primary) hypertension; Z89.422 Acquired absence of other left toe(s); Z79.4 Long term (current) use of insulin | CPT/HCPCS: A9270 ==

== ENCOUNTER 2020-12-19 00:16 | Day surgery (SDC) | payer OTHER | END 2020-12-19 22:39 | disposition home or self-care (01) | LOC: WOUND 00:16 | DX: E11.621 Type 2 diabetes mellitus with foot ulcer (principal); L97.522 Non-pressure chronic ulcer of other part of left foot with fat layer exposed; E11.52 Type 2 diabetes mellitus with diabetic peripheral angiopathy with gangrene; E11.59 Type 2 diabetes mellitus with other circulatory complications; L89.622 Pressure ulcer of left heel, stage 2; I96 Gangrene, not elsewhere classified; I70.213 Atherosclerosis of native arteries of extremities with intermittent claudication, bilateral legs; K21.9 Gastro-esophageal reflux disease without esophagitis; E78.5 Hyperlipidemia, unspecified; I10 Essential (primary) hypertension; I24.1 Dressler's syndrome; Z89.422 Acquired absence of other left toe(s) | CPT/HCPCS: A9270 ==

== ENCOUNTER 2020-12-25 00:25 | Day surgery (SDC) | payer OTHER | END 2020-12-25 22:51 | disposition home or self-care (01) | LOC: WOUND 00:25 | DX: E11.621 Type 2 diabetes mellitus with foot ulcer (principal); L97.522 Non-pressure chronic ulcer of other part of left foot with fat layer exposed; L97.521 Non-pressure chronic ulcer of other part of left foot limited to breakdown of skin; L89.622 Pressure ulcer of left heel, stage 2; E11.59 Type 2 diabetes mellitus with other circulatory complications; E11.51 Type 2 diabetes mellitus with diabetic peripheral angiopathy without gangrene; I25.10 Atherosclerotic heart disease of native coronary artery without angina pectoris; E78.5 Hyperlipidemia, unspecified; I10 Essential (primary) hypertension; K21.9 Gastro-esophageal reflux disease without esophagitis; Z86.73 Personal history of transient ischemic attack (TIA), and cerebral infarction without residual deficits; Z89.422 Acquired absence of other left toe(s); Z98.62 Peripheral vascular angioplasty status | CPT/HCPCS: A9270 ==

== ENCOUNTER 2021-01-01 00:31 | Day surgery (SDC) | payer OTHER | END 2021-01-01 22:43 | disposition home or self-care (01) | LOC: WOUND 00:31 | DX: E11.621 Type 2 diabetes mellitus with foot ulcer (principal); L97.522 Non-pressure chronic ulcer of other part of left foot with fat layer exposed; L89.622 Pressure ulcer of left heel, stage 2; E11.59 Type 2 diabetes mellitus with other circulatory complications; I10 Essential (primary) hypertension; E78.5 Hyperlipidemia, unspecified; K21.9 Gastro-esophageal reflux disease without esophagitis; Z89.422 Acquired absence of other left toe(s); Z79.4 Long term (current) use of insulin | CPT/HCPCS: A9270 ==

== ENCOUNTER 2021-01-08 00:28 | Day surgery (SDC) | payer OTHER | END 2021-01-08 23:14 | disposition home or self-care (01) | LOC: WOUND 00:28 | DX: E11.621 Type 2 diabetes mellitus with foot ulcer (principal); L97.522 Non-pressure chronic ulcer of other part of left foot with fat layer exposed; E11.51 Type 2 diabetes mellitus with diabetic peripheral angiopathy without gangrene; I73.9 Peripheral vascular disease, unspecified; E11.59 Type 2 diabetes mellitus with other circulatory complications; I10 Essential (primary) hypertension; E78.5 Hyperlipidemia, unspecified; K21.9 Gastro-esophageal reflux disease without esophagitis; Z89.422 Acquired absence of other left toe(s); Z79.4 Long term (current) use of insulin | CPT/HCPCS: A9270 ==

== ENCOUNTER 2021-01-14 02:13 | Day surgery (SDC) | payer OTHER | END 2021-01-14 23:33 | disposition home or self-care (01) | LOC: WOUND 02:13 | DX: E11.621 Type 2 diabetes mellitus with foot ulcer (principal); L97.522 Non-pressure chronic ulcer of other part of left foot with fat layer exposed; L89.622 Pressure ulcer of left heel, stage 2; E11.59 Type 2 diabetes mellitus with other circulatory complications; I73.9 Peripheral vascular disease, unspecified; Z89.422 Acquired absence of other left toe(s); I25.10 Atherosclerotic heart disease of native coronary artery without angina pectoris; I10 Essential (primary) hypertension; E78.5 Hyperlipidemia, unspecified; K21.9 Gastro-esophageal reflux disease without esophagitis | CPT/HCPCS: A9270 ==

== ENCOUNTER 2021-01-21 00:21 | Day surgery (SDC) | payer OTHER | END 2021-01-21 22:52 | disposition home or self-care (01) | LOC: WOUND 00:21 | DX: E11.621 Type 2 diabetes mellitus with foot ulcer (principal); L97.522 Non-pressure chronic ulcer of other part of left foot with fat layer exposed; E11.51 Type 2 diabetes mellitus with diabetic peripheral angiopathy without gangrene; E11.59 Type 2 diabetes mellitus with other circulatory complications; I25.10 Atherosclerotic heart disease of native coronary artery without angina pectoris; K21.9 Gastro-esophageal reflux disease without esophagitis; E78.5 Hyperlipidemia, unspecified; I10 Essential (primary) hypertension; I25.2 Old myocardial infarction; E07.9 Disorder of thyroid, unspecified; Z86.73 Personal history of transient ischemic attack (TIA), and cerebral infarction without residual deficits; Z89.422 Acquired absence of other left toe(s); Z98.62 Peripheral vascular angioplasty status | CPT/HCPCS: A9270; G0463 ==

== ENCOUNTER 2021-01-28 00:48 | Day surgery (SDC) | payer OTHER | END 2021-01-28 22:50 | disposition home or self-care (01) | LOC: WOUND 00:48 | DX: E11.621 Type 2 diabetes mellitus with foot ulcer (principal); L97.522 Non-pressure chronic ulcer of other part of left foot with fat layer exposed; T87.89 Other complications of amputation stump; E11.622 Type 2 diabetes mellitus with other skin ulcer; L97.822 Non-pressure chronic ulcer of other part of left lower leg with fat layer exposed; E11.51 Type 2 diabetes mellitus with diabetic peripheral angiopathy without gangrene | CPT/HCPCS: A9270 ==

== ENCOUNTER 2021-02-04 00:26 | Day surgery (SDC) | payer OTHER | END 2021-02-04 22:41 | disposition home or self-care (01) | LOC: WOUND 00:26 | DX: E11.621 Type 2 diabetes mellitus with foot ulcer (principal); L97.522 Non-pressure chronic ulcer of other part of left foot with fat layer exposed; T87.89 Other complications of amputation stump; E11.51 Type 2 diabetes mellitus with diabetic peripheral angiopathy without gangrene; I25.10 Atherosclerotic heart disease of native coronary artery without angina pectoris; K21.9 Gastro-esophageal reflux disease without esophagitis; E78.5 Hyperlipidemia, unspecified; I10 Essential (primary) hypertension; I25.2 Old myocardial infarction; G25.0 Essential tremor; Z86.73 Personal history of transient ischemic attack (TIA), and cerebral infarction without residual deficits | CPT/HCPCS: A9270 ==

== ENCOUNTER 2021-02-11 00:15 | Day surgery (SDC) | payer OTHER | END 2021-02-11 23:04 | disposition home or self-care (01) | LOC: WOUND 00:15 | DX: E11.621 Type 2 diabetes mellitus with foot ulcer (principal); L97.522 Non-pressure chronic ulcer of other part of left foot with fat layer exposed; E11.59 Type 2 diabetes mellitus with other circulatory complications; L89.622 Pressure ulcer of left heel, stage 2; E11.51 Type 2 diabetes mellitus with diabetic peripheral angiopathy without gangrene; I25.10 Atherosclerotic heart disease of native coronary artery without angina pectoris; K21.9 Gastro-esophageal reflux disease without esophagitis; E78.5 Hyperlipidemia, unspecified; I10 Essential (primary) hypertension; Z89.422 Acquired absence of other left toe(s) | CPT/HCPCS: A9270 ==

== ENCOUNTER 2021-02-25 00:05 | Day surgery (SDC) | payer OTHER | END 2021-02-25 22:54 | disposition home or self-care (01) | LOC: WOUND 00:05 | DX: E11.621 Type 2 diabetes mellitus with foot ulcer (principal); L97.522 Non-pressure chronic ulcer of other part of left foot with fat layer exposed; S91.302A Unspecified open wound, left foot, initial encounter; X58.XXXA Exposure to other specified factors, initial encounter; L89.622 Pressure ulcer of left heel, stage 2; E11.59 Type 2 diabetes mellitus with other circulatory complications; I73.9 Peripheral vascular disease, unspecified; Z89.422 Acquired absence of other left toe(s); I25.10 Atherosclerotic heart disease of native coronary artery without angina pectoris; K21.9 Gastro-esophageal reflux disease without esophagitis; E78.5 Hyperlipidemia, unspecified; I10 Essential (primary) hypertension; Z86.73 Personal history of transient ischemic attack (TIA), and cerebral infarction without residual deficits | CPT/HCPCS: A9270 ==

== ENCOUNTER 2021-02-28 07:09 | Day surgery (SDC) | payer OTHER ==
[~2021-02-28] VITALS: Ht 177.8 cm; Wt 85.0 kg
[2021-02-28 07:45] LABS: BASOPHILS ABSOLUTE AUTO 0.07 K/mm3 (0.00-0.23); BASOPHILS PERCENT AUTO 1 % (0-2); EOSINOPHILS ABSOLUTE AUTO 0.25 K/mm3 (0.00-0.68); EOSINOPHILS PERCENT AUTO 4 % (0-6); Hematocrit 38.4 % (37.0-53.0); Hemoglobin 12.1 g/dL (13.5-17.5); IMMATURE GRAN ABSOLUTE AUTO 0.02 K/mm3 (0.00-0.10); IMMATURE GRAN PERCENT AUTO 0 % (0-1); LYMPHOCYTES ABSOLUTE AUTO 1.11 K/mm3 (0.84-5.20); LYMPHOCYTES PERCENT AUTO 17 % (21-46); MONOCYTES ABSOLUTE AUTO 0.49 K/mm3 (0.16-1.47); MONOCYTES PERCENT AUTO 8 % (4-13); Mean Corpuscular HGB 26.7 pg (26.0-34.0); Mean Corpuscular HGB Conc 31.5 g/dL (31.5-36.5); Mean Corpuscular Volume 85 fL (80-100); Mean Platelet Volume 9.7 fL (9.1-12.4); NEUTROPHILS ABSOLUTE AUTO 4.61 K/mm3 (1.96-9.15); NEUTROPHILS PERCENT AUTO 70 % (41-73); Platelet Count 223 K/mm3 (150-400); RDW Coefficient Variation 14.5 % (11.7-14.2); RDW Standard Deviation 44.5 fL (35.1-46.3); Red Blood Cell Count 4.53 M/mm3 (4.30-5.90); White Blood Cell Count 6.55 K/mm3 (4.00-11.30)
[2021-02-28 07:56] LABS: International Normalized Ratio 0.94; Prothrombin Time Results 10.2 Sec (9.7-11.5)
[2021-02-28 08:03] LABS: Anion Gap 4 mmol/L (6-16); Blood Urea Nitrogen 24 mg/dL (8-24); Bun/Creatinine Ratio 23.5 (12.0-20.0); CO2, Blood 29 mmol/L (21-32); Chloride, Blood 106 mmol/L (98-108); Creatinine, Blood 1.02 mg/dL (0.60-1.20); Glomerular Filtration Rate >60 (60-); Glucose, Blood 303 mg/dL (70-99); Potassium, Blood 4.3 mmol/L (3.5-5.5); Sodium, Blood 139 mmol/L (136-145)
--- NOTE | 2021-02-28 10:54 | NUR ---
PATIENT IS LYING FLAT IN THE BED. MONITOR IN USE. CALL LIGHT IN REACH. TPA INFUSING ORDERED. RIGHT GROIN STABLE WITH INFUSION CATHETER AND SHEATH STABLE. NO BLEEDING, NO HEMATOMA, MINIMAL PAIN AT THE SITE. VVS. UPDATED SISTER (PATIENT'S CAREGIVER) VIA TELEPHONE.
--- NOTE | 2021-02-28 11:11 | NUR ---
1030 TPA AND HEPARIN GTTS STARTED BY BERTA SUMNER AND RAMEZ SUMNER AT THE BEDSIDE WITH ORDER FOR VERIFICATION.
--- NOTE | 2021-02-28 12:26 | NUR ---
SMALL AMOUNT OF BLOODY DRAINAGE NOTED FROM THE OUTER EDGE OF THE DRESSING. CLEANED AND REINFORCED WITH GAUZE TO WATCH FOR MORE DRAINAGE. HEP ADN TPA GTTS INFUSING TO THE INFUSION CATHETER INTHE RIGHT GROIN SHEATH. PATIENT AWAKE AND WATCHING TV. C/O LEFT FOOT TINGLING/ PAIN SENSATION. FOOT WARM AND DRY. NON HEALING WOUND NOTED FROM A PRIOR PARTIAL AMPUTATION OF THE TOES. DOPPLER PULSE NOTED. PROPPED ON A PILLOW TO FLOAT HEEL. PATIENT STATED THAT RELIEVED SOME OF THE SENSATION.
--- NOTE | 2021-02-28 12:38 | NUR ---
PATIENT GIVEN FENTANYL FOR LEFT FOOT PAIN 6/. 100 MCG OF FENTANYL IV GIVEN ORDERED BY DR. NORRIS.
--- NOTE | 2021-02-28 14:31 | NUR ---
TPA GTT COMPLETE. DR. NORRIS WANTING TO TAKE HIM INTO THE LAB FOR RECHECK. HEPARIN GTT ALSO STOPPED AND PATIENT TO THE LAB WITH STAFF.
--- NOTE | 2021-02-28 14:45 | NUR ---
UNABLE TO REACH SISTER EARLIER BUT ABLE TO REACH BROTHER JUST NOW. UPDATE GIVEN AND POTENTIAL DISCHARGE AROUND 7 P.M. PLANNED. BROTHER PAT WILL BE CUSTODIAL ENGINEER, UNDERSTANDING VERBALIZED.
--- NOTE | 2021-02-28 16:58 | NUR ---
1600 PATIENT RETURNED FROM THE CATHLAB, RIGHT GROIN ANGIOSEAL CLOSURE/STABLE NO BLEEDING NOTED. LEFT PEDAL SITE WITH NEPUTNE/TEGADERM INTACT. NO BLEEDING NOTED. PATIENT AWAKE. MONITOR APPLIED. CALL LIGHT IN REACH. HOB FLAT BUT IN REVERSE TRENDELENBERG. VVS. NO GTTS PRESENT.
--- NOTE | 2021-02-28 17:00 | NUR ---
1640 PATIENT ASSISTED TO THE LEFT SIDE WITH PILLOW SUPPORT. RIGHT GROINA DN LEFT PEDAL STABLE, NO BLEEDING NOTED. LUNCH TRAY SERVED ADN SET UP FOR THE PATIENT. PATIENT FEEDING SELF. SEVERAL OLD SCRATCHES ON ARMS ARE BLEEDING. THESE SITES CLEANED AND BANDAGED FOR THE PATIENT. PLAN FOR DISCHARGE AT 1830, NOTIFIED BROTHER CRISTOPHER VIA PHONE.
--- NOTE | 2021-02-28 18:09 | NUR ---
RIGHT GROIN SITE WITH SKIN OOZ. DRESSING CHANGED TO A MIGUEL AND TEGADERM ADN SITE IS NO LONGER BLEEDING. PATIENT UP TO THE BEDSIDE. DRESSED SELF AND UP TO THE RESTRROM WITH CANE TO ASSIST WALKING.
--- NOTE | 2021-02-28 18:23 | NUR ---
PIV REMOVED. REVIEWED DISCHARGE INSTRUCTIONS AND COPIES GIVEN TO PATIENT. DRESSING WILL BE REMOVED AFTER 48 HOURS AND WILL CALL FOR FOLLOW UP APPOINTMENT IN TWO WEEKS. ALL DRESSINGS (RIGHT GROIN AND LEFT FOOT) CDI, NO BLEEDING NOTED. DISCHARGED VIA WHEELCHAIR TO [facility] WHERE BROTHER IS PICKING HIM UP.
== END 2021-02-28 22:42 | disposition home or self-care (01) ==
LOC: MHTC 07:09
PROVIDERS: Radiology Diagnostic Radiology
DX: I70.213 Atherosclerosis of native arteries of extremities with intermittent claudication, bilateral legs (principal); I99.8 Other disorder of circulatory system; Z95.9 Presence of cardiac and vascular implant and graft, unspecified; I10 Essential (primary) hypertension; I25.10 Atherosclerotic heart disease of native coronary artery without angina pectoris; E11.621 Type 2 diabetes mellitus with foot ulcer; L97.522 Non-pressure chronic ulcer of other part of left foot with fat layer exposed; E78.5 Hyperlipidemia, unspecified; Z88.2 Allergy status to sulfonamides; Z79.4 Long term (current) use of insulin
CPT/HCPCS: 37211; 37225; 37226; 37228; 37229; 37232; 75710; 75716; 75774; 76937; 80048; 85025; 85347; 85610; 93005; 93010; 99152; 99153; C1714; C1725; C1751; C1760; C1769; C1876; C1887; C1894; C2623; J1644; J2250; J2997; J3010; J7030; J7040; J7050; Q9967

== ENCOUNTER 2021-03-04 00:12 | Day surgery (SDC) | payer OTHER | END 2021-03-04 22:51 | disposition home or self-care (01) | LOC: WOUND 00:12 | DX: E11.621 Type 2 diabetes mellitus with foot ulcer (principal); L97.522 Non-pressure chronic ulcer of other part of left foot with fat layer exposed; L89.622 Pressure ulcer of left heel, stage 2; E11.59 Type 2 diabetes mellitus with other circulatory complications; I73.9 Peripheral vascular disease, unspecified; I25.10 Atherosclerotic heart disease of native coronary artery without angina pectoris; K21.9 Gastro-esophageal reflux disease without esophagitis; E78.5 Hyperlipidemia, unspecified; I10 Essential (primary) hypertension; Z86.73 Personal history of transient ischemic attack (TIA), and cerebral infarction without residual deficits; Z89.422 Acquired absence of other left toe(s) | CPT/HCPCS: A9270 ==

== ENCOUNTER 2021-03-11 00:09 | Day surgery (SDC) | payer OTHER | END 2021-03-11 22:58 | disposition home or self-care (01) | LOC: WOUND 00:09 | DX: E11.621 Type 2 diabetes mellitus with foot ulcer (principal); L97.522 Non-pressure chronic ulcer of other part of left foot with fat layer exposed; L89.622 Pressure ulcer of left heel, stage 2; E11.59 Type 2 diabetes mellitus with other circulatory complications; I73.9 Peripheral vascular disease, unspecified; Z89.422 Acquired absence of other left toe(s); I25.10 Atherosclerotic heart disease of native coronary artery without angina pectoris; K21.9 Gastro-esophageal reflux disease without esophagitis; E78.5 Hyperlipidemia, unspecified | CPT/HCPCS: A9270 ==

== ENCOUNTER 2021-03-22 04:31 | Day surgery (SDC) | payer OTHER | END 2021-03-22 22:42 | disposition home or self-care (01) | LOC: WOUND 04:31 | DX: E11.621 Type 2 diabetes mellitus with foot ulcer (principal); L97.522 Non-pressure chronic ulcer of other part of left foot with fat layer exposed; E11.622 Type 2 diabetes mellitus with other skin ulcer; L98.492 Non-pressure chronic ulcer of skin of other sites with fat layer exposed; T87.89 Other complications of amputation stump; E11.51 Type 2 diabetes mellitus with diabetic peripheral angiopathy without gangrene; Z89.422 Acquired absence of other left toe(s); I25.10 Atherosclerotic heart disease of native coronary artery without angina pectoris; K21.9 Gastro-esophageal reflux disease without esophagitis; E78.5 Hyperlipidemia, unspecified; I10 Essential (primary) hypertension; I25.2 Old myocardial infarction; G25.0 Essential tremor; Z86.73 Personal history of transient ischemic attack (TIA), and cerebral infarction without residual deficits; Z88.2 Allergy status to sulfonamides | CPT/HCPCS: A9270 ==

== ENCOUNTER 2021-03-29 04:10 | Day surgery (SDC) | payer OTHER | END 2021-03-30 00:33 | disposition home or self-care (01) | LOC: WOUND 04:10 | DX: E11.621 Type 2 diabetes mellitus with foot ulcer (principal); L97.422 Non-pressure chronic ulcer of left heel and midfoot with fat layer exposed; L89.622 Pressure ulcer of left heel, stage 2; E11.59 Type 2 diabetes mellitus with other circulatory complications; I73.9 Peripheral vascular disease, unspecified; Z89.422 Acquired absence of other left toe(s); I25.10 Atherosclerotic heart disease of native coronary artery without angina pectoris; K21.9 Gastro-esophageal reflux disease without esophagitis; E78.5 Hyperlipidemia, unspecified; I10 Essential (primary) hypertension | CPT/HCPCS: A9270 ==

== ENCOUNTER 2021-04-10 04:58 | Day surgery (SDC) | payer OTHER | END 2021-04-10 23:02 | disposition home or self-care (01) | LOC: WOUND 04:58 | DX: E11.621 Type 2 diabetes mellitus with foot ulcer (principal); L97.522 Non-pressure chronic ulcer of other part of left foot with fat layer exposed; L89.622 Pressure ulcer of left heel, stage 2; E11.59 Type 2 diabetes mellitus with other circulatory complications; I73.9 Peripheral vascular disease, unspecified; I25.10 Atherosclerotic heart disease of native coronary artery without angina pectoris; K21.9 Gastro-esophageal reflux disease without esophagitis; I10 Essential (primary) hypertension; E78.5 Hyperlipidemia, unspecified; Z89.422 Acquired absence of other left toe(s) | CPT/HCPCS: A9270 ==

== ENCOUNTER 2021-04-19 04:57 | Day surgery (SDC) | payer OTHER | END 2021-04-19 23:40 | disposition home or self-care (01) | LOC: WOUND 04:57 | DX: E11.621 Type 2 diabetes mellitus with foot ulcer (principal); L97.522 Non-pressure chronic ulcer of other part of left foot with fat layer exposed; L89.622 Pressure ulcer of left heel, stage 2; E11.51 Type 2 diabetes mellitus with diabetic peripheral angiopathy without gangrene; I70.213 Atherosclerosis of native arteries of extremities with intermittent claudication, bilateral legs; I25.10 Atherosclerotic heart disease of native coronary artery without angina pectoris; I10 Essential (primary) hypertension; E78.5 Hyperlipidemia, unspecified; K21.9 Gastro-esophageal reflux disease without esophagitis; Z89.422 Acquired absence of other left toe(s); Z86.73 Personal history of transient ischemic attack (TIA), and cerebral infarction without residual deficits; Z88.8 Allergy status to other drugs, medicaments and biological substances | CPT/HCPCS: A9270 ==

== ENCOUNTER 2021-04-26 00:43 | Day surgery (SDC) | payer OTHER | END 2021-04-26 23:00 | disposition home or self-care (01) | LOC: WOUND 00:43 | DX: E11.621 Type 2 diabetes mellitus with foot ulcer (principal); L97.522 Non-pressure chronic ulcer of other part of left foot with fat layer exposed; L89.622 Pressure ulcer of left heel, stage 2; E11.59 Type 2 diabetes mellitus with other circulatory complications; I73.9 Peripheral vascular disease, unspecified; Z89.422 Acquired absence of other left toe(s); I25.10 Atherosclerotic heart disease of native coronary artery without angina pectoris; I10 Essential (primary) hypertension; E11.9 Type 2 diabetes mellitus without complications; E78.5 Hyperlipidemia, unspecified; K21.9 Gastro-esophageal reflux disease without esophagitis; Z86.73 Personal history of transient ischemic attack (TIA), and cerebral infarction without residual deficits | CPT/HCPCS: A9270; G0463 ==

== ENCOUNTER 2021-05-08 01:15 | Day surgery (SDC) | payer OTHER | END 2021-05-08 23:08 | disposition home or self-care (01) | LOC: WOUND 01:15 | DX: E11.621 Type 2 diabetes mellitus with foot ulcer (principal); L97.522 Non-pressure chronic ulcer of other part of left foot with fat layer exposed; E11.59 Type 2 diabetes mellitus with other circulatory complications; L89.622 Pressure ulcer of left heel, stage 2; I73.9 Peripheral vascular disease, unspecified; Z89.422 Acquired absence of other left toe(s); I25.10 Atherosclerotic heart disease of native coronary artery without angina pectoris; K21.9 Gastro-esophageal reflux disease without esophagitis; I10 Essential (primary) hypertension; E78.5 Hyperlipidemia, unspecified | CPT/HCPCS: A9270; G0463 ==

== ENCOUNTER 2021-05-15 01:21 | Day surgery (SDC) | payer OTHER | END 2021-05-15 22:42 | disposition home or self-care (01) | LOC: WOUND 01:21 | DX: E11.621 Type 2 diabetes mellitus with foot ulcer (principal); L97.522 Non-pressure chronic ulcer of other part of left foot with fat layer exposed; L89.622 Pressure ulcer of left heel, stage 2; E11.59 Type 2 diabetes mellitus with other circulatory complications; E11.51 Type 2 diabetes mellitus with diabetic peripheral angiopathy without gangrene; Z89.422 Acquired absence of other left toe(s) | CPT/HCPCS: A9270 ==

== ENCOUNTER 2021-05-22 01:27 | Day surgery (SDC) | payer OTHER | END 2021-05-22 23:06 | disposition home or self-care (01) | LOC: WOUND 01:27 | DX: E11.621 Type 2 diabetes mellitus with foot ulcer (principal); L97.522 Non-pressure chronic ulcer of other part of left foot with fat layer exposed; L89.622 Pressure ulcer of left heel, stage 2; E11.59 Type 2 diabetes mellitus with other circulatory complications; I73.9 Peripheral vascular disease, unspecified; Z89.422 Acquired absence of other left toe(s) | CPT/HCPCS: A9270 ==

== ENCOUNTER 2021-05-28 06:35 | Day surgery (SDC) | payer OTHER ==
[~2021-05-28] VITALS: Ht 180.3 cm; Wt 84.0 kg
[2021-05-28] MEDS ORDERED: ERGO400 PO (07:10)
[2021-05-28] MEDS ORDERED: BASAGLAR K100 UNIT/1 SC (07:11)
[2021-05-28] MEDS ORDERED: INSULIN AS100 UNIT/8 SC (07:11)
[2021-05-28] MEDS ORDERED: MELATONIN5 M1 PO (07:12)
--- NOTE | 2021-05-28 10:20 | NUR ---
PT TO RECOVERY ROOM POST PROCEDURE. PT AWAKE AND CONVERSING APPROPRIATELY; REPORTS L ANKLE/FOOT DISCOMFORT 9-64-[id number] FROM ADMIT. MONITOR SB 40'S, B/P 141/65, AFEBRILE, SPO2 99% RA. R GROIN SITE NO SWELLING/HEMATOMA, TEGADERM DRSG INTACT; BLE PULSES DOPPLER.
--- NOTE | 2021-05-28 11:35 | NUR ---
PT WITH SLOW TRACK O0ZE, NO SWELLING/HEMATOMA TO R GROIN, MANUAL PRESSURE X 5 MIN; MIGUEL AND TEGADERM DRSG APPLIED.
--- NOTE | 2021-05-28 12:35 | NUR ---
PT'S HOB ELEVATED GREATER THEN 30 DEGREES, SITE REMAINS WITHOUT SWELLING/HEMATOMA, TOOK LUNCH WITHOUT ISSUE.
[2021-05-28] MEDS ORDERED: HYDROCODONE-AC1 EA13 PO (12:56)
--- NOTE | 2021-05-28 13:20 | NUR ---
PT AMB TO BATHROOM, SITE UNCHANGED. PT DRESSED SELF WITHOUT ISSUE, SITE UNCHANGED; IV REMOVED-CANNULA INTACT.
--- NOTE | 2021-05-28 13:32 | NUR ---
PT RECEIVED DISCHARGE INSTRUCTIONS, MED LIST AND AFTER CARE INSTRUCTIONS; VERBALIZED GOOD UNDERSTANDING. PT LEFT FACILITY VIA W/C, CONDITION STABLE.
== END 2021-05-28 13:32 | disposition home or self-care (01) ==
LOC: MHTC 06:35
DX: E11.51 Type 2 diabetes mellitus with diabetic peripheral angiopathy without gangrene (principal); I70.213 Atherosclerosis of native arteries of extremities with intermittent claudication, bilateral legs; I10 Essential (primary) hypertension; Z88.2 Allergy status to sulfonamides
CPT/HCPCS: 37225; 37228; 37232; 75716; 75774; 76937; 82947; 85347; 99152; 99153; C1725; C1760; C1769; C1885; C1887; C1894; J2250; J2997; J3010; J7030; J7050; Q9967

== ENCOUNTER 2021-06-03 06:43 | Day surgery (SDC) | payer OTHER ==
[~2021-06-03] VITALS: Ht 177.8 cm; Wt 79.5 kg
[~2021-06-03 06:43] MED LIST changes: +HYDROCODONE-AC1 EA13 PO; +INSULIN AS100 UNIT/8 SC
--- NOTE | 2021-06-03 10:45 | NUR ---
FENTANYL 50 MCG IV GIVEN FOR 5/10 LEFT FOOT PAIN PER ORDER.
--- NOTE | 2021-06-03 12:00 | NUR ---
PAIN LEVEL 3/10.
--- NOTE | 2021-06-03 16:12 | NUR ---
RESUMED CARE OF PT FOLLOWING PROCEDURE TO RECOVERY ROOM.
--- NOTE | 2021-06-03 17:34 | NUR ---
HEPARIN DRIP STOPPED AT 1620. PT SITES STABLE AT GROIN AND LEFT PT. PT UP AND DRESSED PER SELF. BOTH SITES REMAIN STABLE AFTER GETTING DRESSED. DISCHARGE INSTRUCTIONS GONE OVER WITH PT, VERBALIZES UNDERSTANDING. SALINE LOCK REMOVED WITH CATHETER INTACT. PT TO PRIVATE VEHICLE PER W/C WITH ONE STAFF.
== END 2021-06-03 17:30 | disposition home or self-care (01) ==
LOC: MHTC 06:43
DX: E11.51 Type 2 diabetes mellitus with diabetic peripheral angiopathy without gangrene (principal); I70.213 Atherosclerosis of native arteries of extremities with intermittent claudication, bilateral legs; I99.8 Other disorder of circulatory system; I10 Essential (primary) hypertension; I25.10 Atherosclerotic heart disease of native coronary artery without angina pectoris; E78.5 Hyperlipidemia, unspecified; Z88.2 Allergy status to sulfonamides
CPT/HCPCS: 37184; 37226; 37228; 37232; 75710; 76937; 82947; 85347; 99152; 99153; C1725; C1757; C1760; C1769; C1874; C1887; C1894; J1644; J2250; J2997; J3010; J7030; J7040; J7050; Q9967

== ENCOUNTER 2021-06-07 00:59 | Day surgery (SDC) | payer OTHER | END 2021-06-07 23:55 | disposition home or self-care (01) | LOC: WOUND 00:59 | DX: E11.621 Type 2 diabetes mellitus with foot ulcer (principal); L97.522 Non-pressure chronic ulcer of other part of left foot with fat layer exposed; E11.59 Type 2 diabetes mellitus with other circulatory complications; L89.622 Pressure ulcer of left heel, stage 2; E11.51 Type 2 diabetes mellitus with diabetic peripheral angiopathy without gangrene; Z89.422 Acquired absence of other left toe(s) | CPT/HCPCS: A9270 ==

== ENCOUNTER 2021-06-26 02:32 | Day surgery (SDC) | payer OTHER | END 2021-06-26 23:47 | disposition home or self-care (01) | LOC: WOUND 02:32 | DX: E11.621 Type 2 diabetes mellitus with foot ulcer (principal); L97.522 Non-pressure chronic ulcer of other part of left foot with fat layer exposed; E11.51 Type 2 diabetes mellitus with diabetic peripheral angiopathy without gangrene; L89.622 Pressure ulcer of left heel, stage 2; Z89.422 Acquired absence of other left toe(s) | CPT/HCPCS: A9270 ==

== ENCOUNTER 2021-07-02 02:25 | Day surgery (SDC) | payer OTHER | END 2021-07-02 22:43 | disposition home or self-care (01) | LOC: WOUND 02:25 | DX: E11.621 Type 2 diabetes mellitus with foot ulcer (principal); L97.522 Non-pressure chronic ulcer of other part of left foot with fat layer exposed; I25.10 Atherosclerotic heart disease of native coronary artery without angina pectoris; E11.51 Type 2 diabetes mellitus with diabetic peripheral angiopathy without gangrene; I10 Essential (primary) hypertension; I25.2 Old myocardial infarction; L89.622 Pressure ulcer of left heel, stage 2; E11.59 Type 2 diabetes mellitus with other circulatory complications; Z86.73 Personal history of transient ischemic attack (TIA), and cerebral infarction without residual deficits; Z89.422 Acquired absence of other left toe(s) | CPT/HCPCS: A9270; G0463 ==

== ENCOUNTER 2021-07-09 04:33 | Day surgery (SDC) | payer OTHER | END 2021-07-09 23:43 | disposition home or self-care (01) | LOC: WOUND 04:33 | DX: E11.621 Type 2 diabetes mellitus with foot ulcer (principal); L97.522 Non-pressure chronic ulcer of other part of left foot with fat layer exposed; L89.622 Pressure ulcer of left heel, stage 2; E11.59 Type 2 diabetes mellitus with other circulatory complications; E11.51 Type 2 diabetes mellitus with diabetic peripheral angiopathy without gangrene; Z89.422 Acquired absence of other left toe(s); I25.10 Atherosclerotic heart disease of native coronary artery without angina pectoris; K21.9 Gastro-esophageal reflux disease without esophagitis; I10 Essential (primary) hypertension; E78.5 Hyperlipidemia, unspecified; Z86.73 Personal history of transient ischemic attack (TIA), and cerebral infarction without residual deficits | CPT/HCPCS: A9270 ==

== ENCOUNTER 2021-07-17 02:44 | Day surgery (SDC) | payer OTHER | END 2021-07-17 22:52 | disposition home or self-care (01) | LOC: WOUND 02:44 | DX: E11.621 Type 2 diabetes mellitus with foot ulcer (principal); L97.526 Non-pressure chronic ulcer of other part of left foot with bone involvement without evidence of necrosis; L97.522 Non-pressure chronic ulcer of other part of left foot with fat layer exposed; L89.622 Pressure ulcer of left heel, stage 2; E11.59 Type 2 diabetes mellitus with other circulatory complications; E11.51 Type 2 diabetes mellitus with diabetic peripheral angiopathy without gangrene; Z89.422 Acquired absence of other left toe(s); I25.10 Atherosclerotic heart disease of native coronary artery without angina pectoris; I10 Essential (primary) hypertension; E78.5 Hyperlipidemia, unspecified; Z88.2 Allergy status to sulfonamides | CPT/HCPCS: A9270 ==

== ENCOUNTER 2021-07-24 02:09 | Day surgery (SDC) | payer OTHER | END 2021-07-24 23:03 | disposition home or self-care (01) | LOC: WOUND 02:09 | DX: E11.621 Type 2 diabetes mellitus with foot ulcer (principal); L97.522 Non-pressure chronic ulcer of other part of left foot with fat layer exposed; L89.622 Pressure ulcer of left heel, stage 2; E11.59 Type 2 diabetes mellitus with other circulatory complications; E11.51 Type 2 diabetes mellitus with diabetic peripheral angiopathy without gangrene; I25.10 Atherosclerotic heart disease of native coronary artery without angina pectoris; K21.9 Gastro-esophageal reflux disease without esophagitis; I10 Essential (primary) hypertension; E78.5 Hyperlipidemia, unspecified; Z89.422 Acquired absence of other left toe(s) | CPT/HCPCS: A9270 ==

== ENCOUNTER 2021-08-02 04:18 | Day surgery (SDC) | payer OTHER | END 2021-08-02 23:39 | disposition home or self-care (01) | LOC: WOUND 04:18 | DX: E11.621 Type 2 diabetes mellitus with foot ulcer (principal); L97.522 Non-pressure chronic ulcer of other part of left foot with fat layer exposed; L89.622 Pressure ulcer of left heel, stage 2; E11.59 Type 2 diabetes mellitus with other circulatory complications; E11.51 Type 2 diabetes mellitus with diabetic peripheral angiopathy without gangrene; Z89.422 Acquired absence of other left toe(s); I25.10 Atherosclerotic heart disease of native coronary artery without angina pectoris; I10 Essential (primary) hypertension; E78.5 Hyperlipidemia, unspecified; Z88.8 Allergy status to other drugs, medicaments and biological substances | CPT/HCPCS: A9270 ==

== ENCOUNTER 2021-08-05 08:27 | Inpatient (IN) | payer OTHER ==
[~2021-08-05] VITALS: Ht 177.8 cm; Wt 84.9 kg
[2021-08-05 10:02] LABS: Hematocrit 34.1 % (37.0-53.0); Hemoglobin 10.9 g/dL (13.5-17.5); Mean Corpuscular HGB 27.8 pg (26.0-34.0); Mean Corpuscular Volume 87 fL (80-100); Mean Platelet Volume 9.8 fL (9.1-12.4); Platelet Count 193 K/mm3 (150-400); RDW Coefficient Variation 14.2 % (11.7-14.2); RDW Standard Deviation 44.9 fL (35.1-46.3); Red Blood Cell Count 3.92 M/mm3 (4.30-5.90); White Blood Cell Count 7.91 K/mm3 (4.00-11.30)
[2021-08-05 10:11] LABS: International Normalized Ratio 1.18; Prothrombin Time Results 12.3 Sec (9.7-11.5)
[2021-08-05 10:18] LABS: Anion Gap 4 mmol/L (6-16); Blood Urea Nitrogen 34 mg/dL (8-24); CO2, Blood 30 mmol/L (21-32); Chloride, Blood 104 mmol/L (98-108); Creatinine, Blood 0.85 mg/dL (0.60-1.20); Glomerular Filtration Rate >60 (60-); Glucose, Blood 306 mg/dL (70-99); Potassium, Blood 4.2 mmol/L (3.5-5.5); Sodium, Blood 138 mmol/L (136-145)
--- NOTE | 2021-08-05 14:10 | NUR ---
RECEIVED PT FROM RISK INVESTIGATOR S/P ANGIO. PT HAS HX-PVD, HTN, SMOKING, FORMER METH USE, DM, LEFT METATARSAL AMPUTATION WITH WOUND. PT GOES TO WOUND CLINIC FOR WEEKLY DRESSING CHANGES. ANGIO WITH OCCLUDED SFA. RIGHT FEMORAL SHEATH LEFT IN PLACE. #6 FR SHEATH INTACT TO RIGHT GROIN WITH INFUSION CATHETER NO BLEEDING OR HEMATOMA. TPA AND HEPARIN DRIPS TO BE INITIATED-SEE EMAR. ECG SHOWS SB WITH RATE 40'S. SBP TRENDING 170-180'S. DP/PT PULSES PER DOPPLER AND DIFFICULT TO FIND UTILIZING DOPPLER. LEFT METATARSAL AMPUTATION/STUMP WITH WOUND-DRESSING C/D/I. PT REPORTS 6/10 PAIN TO LEFT FOOT/STUMP-MED WITH FENTANYL-SEE EMAR.PT IS ALERT AND ORIENTED, COMMUNICATING NEEDS WELL. PT ORIENTED TO ROOM AND CALL LIGHT PLACED WITHIN REACH. PT WILL CALL FOR ASSISTANCE PRN.
--- NOTE | 2021-08-05 14:50 | NUR ---
TPA @ 1 MG/HR=25 CC PER RIGHT FEMORAL INFUSION CATHETER. HEPARIN @ 500 UNITS/HR=10CC VIA RIGHT FEMORAL SIDE PORT. RIGHT FEMORAL SITE REMAINS CLEAR. NO NOTED BLEEDING OR HEMATOMA.
--- NOTE | 2021-08-05 19:14 | NUR ---
PT GAVE VERBAL CONSENT TO PHOTO LEFT STUMP WOUND. PHOTO TAKEN AND PLACED ON CHART. GENTLY CLEANSED WITH WOUND CLEANSER, PATTED DRY, AND FOAM DRESSINGS APPLIED. RIGHT FEMORAL SITE REMAINS CLEAR-NO ACUTE BLEEDING OR HEMATOMA. REPORT GIVEN TO TAISHA FRANCO.
--- NOTE | 2021-08-05 19:30 | NUR ---
Assumed care for patient at 1900. Patient wake and alert. Rated LLE pain as 2/10. Heparin at 6.02unit/kg/hr (10ml/hr) and Alteplase at 1mg/hr ( 25ml/hr) infusing through the stent on the right groin. No distress
--- NOTE | 2021-08-06 06:19 | NUR ---
Patient awake and alert. Remained SB in the 40's and occasionally droped down to the high 30's, which lasted for but two seconds then goes back to the 40's, especially when he fell asleep. Heparin infusing at 6.02unit/kg/hr and the TPA drip maintained at 1mg/hr are been infused through the right groin stent. B/LE pulses were checked and nothing could be palpated or heard until about 0200 when a swishing sounds could be heard via doppler from the left stump. Patient requested for pain med frequently and Fentanyl 100mcg was administered as ordered. Will continued to be monitored.
--- NOTE | 2021-08-06 09:16 | NUR ---
CARE OF PT ASSUMED AT 0700. BEDSIDE REPORT TAKEN. RIGHT ART FEM GROIN SITE W SHEATH CHECKED W NOCT RN, AREA SOFT W/O BLEEDING OR HEMATOMA. DOPPLER TO RIGHT PT/DP. ABSENT PULSE TO LEFT FOOT. WOUNDS TO TOP OF STUMP NOTED. WOUND TO TO TOP RIGHT SIDE OF STUMP W SCANT BLEEDING. WOUND TO OUTER LEFT HEEL BLEEDING MODERATELY. MEPILEX DRSG PLACED, FOOT WRAPPED IN GAUZE PER PT REQUEST. PT C/O PAIN 10/10 TO LEFT FOOT. FENTANYL WITH LITTLE EFFECT. DR NORRIS CALLED, DILAUDID ORDERED. PT SLEEPING NOW, APPEARS MORE COMFORTABLE. PT WITH SOME HTN, SINUS JAMIN 40-50'S. HEP GTT AT 10MLS/HR TO SIDE PORT OF SHEATH AND TPA INFUSING AT 1MG/HR VIA SHEATH.
--- NOTE | 2021-08-06 11:52 | NUR ---
PT C/O PAIN AGAIN TO LEFT FOOT. DILAUDID GIVEN W GOOD EFFECT. PULSES UNCHANGED. R GROIN SHEALTH REMAINS STABLE W/O HEMATOMA. CATHFLO AND HEP CONT TO INFUSE. 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
--- NOTE | 2021-08-06 15:11 | NUR ---
PT RESTING IN BED COMFORTABLE. R GROIN REMAINS STABLE, NO CHANGE TO BLE ASSESSMENT.
--- NOTE | 2021-08-06 17:10 | NUR ---
ANESTHESIA AT BEDSIDE TO SEE PT AT 1645. CBG 75, D5NS 250CC BOLUS STARTED PER ANESTHESIA. PT'S SISTER KHAI CALLED AND UPDATED PER PT REQUEST. PT TO CREW CALLER AROUND 1700.
--- NOTE | 2021-08-06 19:45 | NUR ---
ASSUMED CARE PATIENT ARRIVED TO ICU3 FROM FRUIT GRADER OPERATOR W/ HEPARIN INF @ 500 UNITS/HR AND TPA @ 25 ML/HR INTO SHEATH IN RT GROIN; DRESSING C/D/I. GAUZE BANDAGE WITH MIGUEL DRESSING UNDERNEATH TO LT FOOT C/D/I. 18G TO LT AC PATENT AND INF D5W @ 100ML/HR. PATIENT IS ALERT AND ORIENTED AND CURRENTLY ON ROOM AIR. CONCERNS OF HYPOGLYCEMIA PRIOR TO FRUIT GRADER OPERATOR WITH CBG OF 75; CURRENT CBG 108. BEDISDE REPORT COMPLETED WITH NURSE AND ANESTHESIOLOGIST.
--- NOTE | 2021-08-07 06:26 | NUR ---
SHIFT SUMMARY PATIENT EXPERIENCED INCREASED PAIN IN THE LT STUMP DURING THE NIGHT. INCREASED FREQUENCY OF DILAUDID PER DR. NORRIS'S ORDER IMPROVED PAIN. AFTER DILAUDID WAS INCREASED, PATIENT BEGAN DESATTING FROM MID TO HIGH 90'S DOWN TO HIGH 80'S TO LOW 90'S. 2-5LPM O2 VIA NC TITRATED TO KEEP SPO2 GREATER THAN 90%. RT FEMORAL INSERTION SITE REMAINED C/D/I AND FREE OF BLEEDING OR HEMATOMA W/ TPA AND HEPARIN INF. PULSES BY DOPPLER PRESENT IN BLE WITH IMPROVEMENT TO LLE. D5W SWITCHED TO NS. PATIENT REMAINED NPO SINCE 0000 IN PREPERATION TO RETURN TO TABLET REPAIR.
--- NOTE | 2021-08-07 07:35 | NUR ---
ORIENTED X4, WAKES EASILY, LAB DRAW DONE, PLEASANT TO CARE
--- NOTE | 2021-08-07 09:34 | NUR ---
10 PAIN MOANING AND CRYING OUT IN PAIN, MEDICATED WITH DILAUDID, RESTING NOW, NO DISTRESS, WCTM
--- NOTE | 2021-08-07 15:37 | NUR ---
BLADDER SCAN 148 ML
--- NOTE | 2021-08-07 16:00 | NUR ---
left stump drainage increased, bright red, to clinical laboratory science professor now, wctm and change prn
--- NOTE | 2021-08-07 16:14 | NUR ---
patient to systems testing laboratory technician now, reported intake 1303 and output 0, bladder scan only showed 148 mls
[2021-08-07 16:56] LABS: BASOPHILS ABSOLUTE AUTO 0.05 K/mm3 (0.00-0.23); BASOPHILS PERCENT AUTO 1 % (0-2); EOSINOPHILS ABSOLUTE AUTO 0.38 K/mm3 (0.00-0.68); EOSINOPHILS PERCENT AUTO 4 % (0-6); Hematocrit 33.9 % (37.0-53.0); Hemoglobin 10.6 g/dL (13.5-17.5); IMMATURE GRAN ABSOLUTE AUTO 0.03 K/mm3 (0.00-0.10); IMMATURE GRAN PERCENT AUTO 0 % (0-1); LYMPHOCYTES ABSOLUTE AUTO 0.75 K/mm3 (0.84-5.20); LYMPHOCYTES PERCENT AUTO 8 % (21-46); MONOCYTES ABSOLUTE AUTO 0.57 K/mm3 (0.16-1.47); MONOCYTES PERCENT AUTO 6 % (4-13); Mean Corpuscular HGB 27.6 pg (26.0-34.0); Mean Corpuscular HGB Conc 31.3 g/dL (31.5-36.5); Mean Corpuscular Volume 88 fL (80-100); Mean Platelet Volume 9.4 fL (9.1-12.4); NEUTROPHILS ABSOLUTE AUTO 7.81 K/mm3 (1.96-9.15); NEUTROPHILS PERCENT AUTO 82 % (41-73); Platelet Count 157 K/mm3 (150-400); RDW Coefficient Variation 14.6 % (11.7-14.2); RDW Standard Deviation 47.6 fL (35.1-46.3); Red Blood Cell Count 3.84 M/mm3 (4.30-5.90); White Blood Cell Count 9.59 K/mm3 (4.00-11.30)
[2021-08-07 17:17] LABS: Alanine Aminotransfer (ALT/SGP 64 U/L (12-78); Albumin, Blood 2.5 g/dL (3.4-5.0); Albumin/Globulin Ratio 0.8 (0.8-1.8); Alk Phos 86 U/L (50-136); Anion Gap 2 mmol/L (6-16); Aspartate Aminotrans (AST/SGOT 35 U/L (12-37); Bilirubin, Total 0.3 mg/dL (0.1-1.0); Blood Urea Nitrogen 18 mg/dL (8-24); Bun/Creatinine Ratio 24.5 (12.0-20.0); CO2, Blood 28 mmol/L (21-32); Calcium, Blood 8.1 mg/dL (8.5-10.1); Chloride, Blood 112 mmol/L (98-108); Creatinine, Blood 0.74 mg/dL (0.60-1.20); Globulin, Blood 3.3 g/dL (2.2-4.0); Glomerular Filtration Rate >60 (60-); Glucose, Blood 122 mg/dL (70-99); Potassium, Blood 4.1 mmol/L (3.5-5.5); Sodium, Blood 142 mmol/L (136-145); Total Protein, Blood 5.8 g/dL (6.4-8.2)
--- NOTE | 2021-08-07 17:49 | NUR ---
patient back to the floor, vs reveiwed, alert and oriented, call light with in reach, sheath removed, angio seal at 1720, right groin cdi, poor doppler pulse on right foot, 1000 ml urine out in cathode washer with a straight cath, to resume diet as tolerated, tpa discontinued, heparin and ns to continue, tolerated ice water
--- NOTE | 2021-08-07 18:26 | NUR ---
ALERT AND ORIENTED X4, 2L NC, LS CLEAR, NO SOB, TELE NSR/SB 47-70, DENEIS CHEST PAIN, RIGHT FOOT PULSE HARD TO FIND WITH DOPPLER, CSM+, STARTING ON ADA DIET NOW, HAS BEEN NPO, MONITOR I&O, 1000 OUT FROM STRAIGHT CATH IN FISH ROE PROCESSOR, IN 1303, LEFT STUMP DRSG CHANGED CDI, TELFA X3 AND GAUZE WRAP, BRIGHT RED DRAINAGE, SATURATED 50% OF LAST DRSG, PATIENT TOLREATED DRSG CHANGE WELL, MEDICATED FOR PAIN WITH IV AND PO MEDICATION, RIGHT GROIN SHEATH GONE, CDI, PHONE NEXT TO PATIENT, CALL LIGHT WITH IN REACH, HOB RESTRICTED FOR TWO HOURS AND THEN GRADUAL INCREASE, VS REVIEWED, PLEASANT TO CARE, WILL REPORT TO PM TAISHA
--- NOTE | 2021-08-07 18:47 | NUR ---
REPORT TO REAGAN WILDLIFE ECOLOGY PROFESSOR, PATIENT TO BE MOVED TO PCU 2
--- NOTE | 2021-08-07 19:05 | NUR ---
PATIENT SUCCESSFULLY TRANSFERED TO PCU 2, GROIN SITE ASSESSED BY PCU NURSES, ALL BELONGINGS SENT WITH PATIENT, TRANSFER COMPLETE
--- NOTE | 2021-08-07 19:50 | NUR ---
Assumed care of pt at 1900. New transfer from ICU 3 to PCU 2. Patient is A/Ox4. High amounts of pain in the left foot, pedals +1 found with doppler bilaterally. +2 radial pulses bilaterally. Pain medicated per emar. Right groin site with a small (nickel size) amount of old blood, without hematoma. Left foot with about a 3inch blood spot on bandage, will continue to monitor both sites for changes.
--- NOTE | 2021-08-08 04:18 | NUR ---
A/OX4. PEDAL PULSES WEAK AT +1 WITH USE OF DOPPLER BILATERALLY. LEFT FOOT WITH A CONSTANT SMALL TRICKEL OF BLOOD, CAUSING SATURATION ABOUT 4INCHES OF DRESSING WITHIN PAST 6 HOURS WHEN IT WAS CHANGES. HEPARIN RUNNING AT 15UNITS/KG/HR. PATIENT HAS URINAL AT BEDSIDE BUT HAS BEEN UNABLE TO URINATE, BLADDER SCAN SHOWED MORE THAN 800ML IN THE BLADDER. REPOSITIONED PATIENT AND EDUCATED THAT WE MAY HAVE TO STRAIGHT CATH AGAIN HE'S RETAINING URINE. MAINTAINING SATS ABOVE 92% ON RA. GROIN DRESSING HAS NO CHANGE FROM THE BEGINNING OF THE SHIFT WITH NO HEMATOMA OR ACTIVE BLEEDING. WILL UPDATE AND REPORT TO ONCOMING DAYSHIFT RN.
[2021-08-08 06:09] LABS: Source, Urine Catheter
[2021-08-08 06:13] LABS: Bilirubin, Urine Neg (Neg); Blood, Urine 1+ (Neg); Glucose Qualitative, Urine Neg (Neg); Ketones, Urine 1+ (Neg); Leukocyte Esterase, Urine Neg (Neg); Nitrite, Urine Neg (Neg); Protein, Urine Neg (Neg); Urobilinogen, Urine NORM (Normal)
[2021-08-08 06:29] LABS: Appearance, Urine Hazy (Clear); Bacteria Rare /hpf; Color, Urine Yellow (P-Yellow); Hyaline Casts 0-2 /lpf (0-2); Red Blood Cells, Urine Not Seen /hpf (0-2); Squamous Epithelial Cells Rare /hpf (Few); White Blood Cells, Urine 0-2 /hpf (0-5)
--- NOTE | 2021-08-08 17:42 | NUR ---
PT TRANSFERRED TO MEDICAL FLOOR VIA BED. TOLERATED WELL. ALL PERSONAL ITEMS TRANSPORTED WITH PT. HEPARIN STILL INFUSING AT 15UNITS/KG. LEFT FOOT DRESSING WAS INTACT WITH MODERATE DISCHARGE NOTED, RECIEVING RN NOTIFIED. R GROIN SITE DRESSING INTACT AND UNCHANGED FROM SHIFT ASSESSMENT. PT EXPRESSED NO C/O DURING HANDOFF.
--- NOTE | 2021-08-08 17:42 | NUR ---
PT ARRIVED AT 1710 AOX4 AND COOPERATIVE OF CARE. PT DOING WELL AND NO DISTRESS NOTED. HEPRIN IS CURRENTLY RUNNING AND BANDAGE ON L FOOT INTACT. CALL LIGHT IS WITHIN REACH WILL CONTINUE TO MONITOR.
--- NOTE | 2021-08-09 03:53 | NUR ---
SHIFT SUMMARY PATIENT HAD NO ACUTE CHANGES OBSERVED. AXOX 3 AND ONE ASSIST TO BSC. LEI PATENT AND DRAINING TO GRAVITY. PIV REMAINS INTACT. IV ABX INFUSED. HEPARIN INFUSING MANAGED BY PHARMACY. CBG 187. REPORTED LEFT FOOT PAIN X TWO AND IV DILAUDID GIVEN PER EMAR. PATIENT ABLE TO SLEEP WITH PAIN MANAGEMENT. VSS/AFEBRILE. DENIES SOB AND N/V. CALL LIGHT IN REACH. BED IN LOWEST POSITION. WILL CONTINUE TO MONITOR UNTIL DAY SHIFT NURSE ASSUMES CARE.
[2021-08-09 05:21] LABS: Mean Platelet Volume 9.5 fL (9.1-12.4); Platelet Count 135 K/mm3 (150-400)
[2021-08-09 08:23] LABS: Anion Gap 4 mmol/L (6-16); Blood Urea Nitrogen 14 mg/dL (8-24); Bun/Creatinine Ratio 18.8 (12.0-20.0); CO2, Blood 27 mmol/L (21-32); Calcium, Blood 8.1 mg/dL (8.5-10.1); Chloride, Blood 108 mmol/L (98-108); Creatinine, Blood 0.74 mg/dL (0.60-1.20); Glomerular Filtration Rate >60 (60-); Glucose, Blood 55 mg/dL (70-99); Phosphorus, Blood 2.4 mg/dL (2.5-4.9); Potassium, Blood 3.4 mmol/L (3.5-5.5); Sodium, Blood 139 mmol/L (136-145)
[2021-08-09] MEDS ORDERED: Norco 5-325 Ta1 EACH PO (11:37)
[2021-08-09] MEDS ORDERED: DULCOLAX400 MG/5 M PO (11:39)
[2021-08-09] MEDS ORDERED: ONDA4 PO (11:41)
--- NOTE | 2021-08-09 13:31 | NUR ---
DISCHARGE NOTE PATIENT WAS DISCHARGED AT 1300 THIS SHIFT. PATIENT VERBALIZED UNDERSTANDING OF DISCHARGE INSTRUCTIONS AND MEDICATION RX GIVEN. PATIENT WAS GIVEN WOUND CARE SUPPLIES TO LAST UNTIL FOLLOW UP APPOINTMENT IN 1 WEEK. VITAL SIGNS STABLE AT DISCHARGE.
== END 2021-08-09 13:11 | disposition home or self-care (01) | DRG 271 ==
LOC: ICUE 08:27 → MHTC 08:27 → ICUE 13:57 → MHTC 08-07 14:58 → PCU 08-07 14:58 → ICUE 08-07 17:32 → PCU 08-07 18:58 → MEDS 08-08 17:10
PROVIDERS: Internal Medicine; ADMIT Radiology Diagnostic Radiology
PROC: 3E05317 Introduction of Other Thrombolytic into Peripheral Artery, Percutaneous Approach (ICD-10-PCS; principal; 2021-08-07)
PROC: 047Q3ZZ Dilation of Left Anterior Tibial Artery, Percutaneous Approach (ICD-10-PCS; 2021-08-07)
PROC: 047P3ZZ Dilation of Right Anterior Tibial Artery, Percutaneous Approach (ICD-10-PCS; 2021-08-07)
PROC: 047W3ZZ Dilation of Left Foot Artery, Percutaneous Approach (ICD-10-PCS; 2021-08-07)
PROC: 04FQ3ZZ Fragmentation of Left Anterior Tibial Artery, Percutaneous Approach (ICD-10-PCS; 2021-08-07)
PROC: 04FY3ZZ Fragmentation of Lower Artery, Percutaneous Approach (ICD-10-PCS; 2021-08-07)
PROC: 04FN3ZZ Fragmentation of Left Popliteal Artery, Percutaneous Approach (ICD-10-PCS; 2021-08-07)
PROC: 04CL3ZZ Extirpation of Matter from Left Femoral Artery, Percutaneous Approach (ICD-10-PCS; 2021-08-08)
PROC: 04CN3ZZ Extirpation of Matter from Left Popliteal Artery, Percutaneous Approach (ICD-10-PCS; 2021-08-08)
DX: E11.51 Type 2 diabetes mellitus with diabetic peripheral angiopathy without gangrene (principal); L97.429 Non-pressure chronic ulcer of left heel and midfoot with unspecified severity; I70.244 Atherosclerosis of native arteries of left leg with ulceration of heel and midfoot; E11.621 Type 2 diabetes mellitus with foot ulcer; I10 Essential (primary) hypertension; I25.10 Atherosclerotic heart disease of native coronary artery without angina pectoris; E03.9 Hypothyroidism, unspecified; E11.40 Type 2 diabetes mellitus with diabetic neuropathy, unspecified; E11.649 Type 2 diabetes mellitus with hypoglycemia without coma; Z79.02 Long term (current) use of antithrombotics/antiplatelets; Z79.82 Long term (current) use of aspirin; Z79.84 Long term (current) use of oral hypoglycemic drugs; Z79.899 Other long term (current) drug therapy; Z88.2 Allergy status to sulfonamides; Z89.432 Acquired absence of left foot
CPT/HCPCS: 36247; 36415; 37184; 37185; 37211; 37213; 37214; 37228; 37232; 75716; 75774; 76937; 80048; 80053; 80069; 81001; 82947; 85018; 85025; 85027; 85049; 85347; 85384; 85610; 85730; 99152; 99153; A9270; C1725; C1751; C1757; C1760; C1769; C1887; C1894; C9764; J1100; J1170; J1644; J1815; J2250; J2370; J2405; J2704; J2997; J3010; J7030; J7040; J7042; J7050; Q9967

== ENCOUNTER 2021-08-30 04:37 | Day surgery (SDC) | payer OTHER ==
[~2021-08-30 04:37] MED LIST changes: +DULCOLAX400 MG/5 M PO; +ONDA4 PO
== END 2021-08-30 23:16 | disposition home or self-care (01) ==
LOC: WOUND 04:37
PROC: 0JBR0ZZ Excision of Left Foot Subcutaneous Tissue and Fascia, Open Approach (ICD-10-PCS; principal; 2021-08-30)
DX: T87.81 Dehiscence of amputation stump (principal); E11.621 Type 2 diabetes mellitus with foot ulcer; L97.522 Non-pressure chronic ulcer of other part of left foot with fat layer exposed; L97.422 Non-pressure chronic ulcer of left heel and midfoot with fat layer exposed; L97.528 Non-pressure chronic ulcer of other part of left foot with other specified severity; L89.622 Pressure ulcer of left heel, stage 2; I10 Essential (primary) hypertension; E11.51 Type 2 diabetes mellitus with diabetic peripheral angiopathy without gangrene; E78.5 Hyperlipidemia, unspecified; I25.10 Atherosclerotic heart disease of native coronary artery without angina pectoris; K21.9 Gastro-esophageal reflux disease without esophagitis; I25.2 Old myocardial infarction; Z89.432 Acquired absence of left foot; Z86.73 Personal history of transient ischemic attack (TIA), and cerebral infarction without residual deficits; Y83.5 Amputation of limb(s) as the cause of abnormal reaction of the patient, or of later complication, without mention of misadventure at the time of the procedure
CPT/HCPCS: A9270

== ENCOUNTER 2021-09-13 11:47 | Emergency (ER) | payer OTHER ==
[~2021-09-13] VITALS: Ht 177.8 cm; Wt 79.4 kg
[2021-09-13] MEDS ORDERED: OXYC5 PO (13:16)
[2021-09-17] MEDS ORDERED: NOVOLOG100 UNIT/2 IV (13:22)
[2021-09-17] MEDS ORDERED: INSULANI SC (13:23)
== END 2021-09-13 13:20 | disposition home or self-care (01) ==
LOC: ER 11:47
DX: M79.605 Pain in left leg (principal); I10 Essential (primary) hypertension; E11.9 Type 2 diabetes mellitus without complications; E78.5 Hyperlipidemia, unspecified; E03.9 Hypothyroidism, unspecified; I25.2 Old myocardial infarction; Z87.891 Personal history of nicotine dependence; Z88.2 Allergy status to sulfonamides; Z79.899 Other long term (current) drug therapy; Z79.84 Long term (current) use of oral hypoglycemic drugs; Z79.4 Long term (current) use of insulin; Z79.891 Long term (current) use of opiate analgesic
CPT/HCPCS: 93971; 99283-25

== ENCOUNTER 2021-09-18 08:41 | Inpatient (IN) | payer OTHER ==
[~2021-09-18] VITALS: Ht 177.8 cm; Wt 81.9 kg
[~2021-09-18 08:41] MED LIST changes: +INSULANI SC; +NOVOLOG100 UNIT/2 IV; +OXYC5 PO
--- NOTE | 2021-09-18 12:40 | NUR ---
INITIAL ASSESSMENT PATIENT ARRIVED TO ICU FROM WEIGHBRIDGE OPERATOR AT 1200. PATIENT AFEBRILE. NO COMPLAINTS AT THIS TIME. PATIENT ALERT AND ORIENTED, HOWEVER IS LETHARGIC FROM MEDICATIONS GIVEN IN WEIGHBRIDGE OPERATOR. MOBILITY RESTRICTIONS IN PLACE FOR SHEATH IN R FEMORAL ARTERY. L TOES AMPUTATED. PATIENT NORMALLY AMBULATES WITH CANE. PATIENT SATTING 90% AND GREATER ON RA. LUNGS CLEAR THROUGHOUT. PATIENT IN SB, HR 40S TO 50S. SBP 90S TO 1-TEENS. PULSES 1+ IN BLES. PULSES DOPPLERED AFTER PALPATING JUST TO CONFIRM. GI WNL. WNL. URINAL PLACED AT BEDSIDE. SKIN PALE. 2 SCABS FROM PREVIOUS ULCERS NOTED TO R BUTTOCKS. BED LOW, CALL LIGHT IN REACH. PATIENT ORIENTED TO UNIT, ROOM, AND CALL LIGHT. WILL CONTINUE TO MONITOR FREQUENTLY THROUGHOUT SHIFT.
--- NOTE | 2021-09-18 16:30 | NUR ---
PATIENT AFEBRILE. PATIENT NO LONGER LETHARGIC. HR 40S TO 50S. SBP LOW 100S TO 140S. TPA AND HEPARIN INFUSING. PRN PAIN MEDICATIONS BEING GIVEN FOR COMPLAINTS OF PAIN IN L FOOT. NO OTHER ACUTE CHANGES TO NOTE ON AT THIS TIME. WILL CONTINUE TO MONITOR.
[2021-09-18 18:33] LABS: Source, Urine Catheter
[2021-09-18 18:40] LABS: Appearance, Urine Clear (Clear); Bilirubin, Urine Neg (Neg); Blood, Urine Neg (Neg); Color, Urine Yellow (P-Yellow); Glucose Qualitative, Urine 4+ (Neg); Ketones, Urine Neg (Neg); Leukocyte Esterase, Urine Neg (Neg); Nitrite, Urine Neg (Neg); Protein, Urine Neg (Neg); Urobilinogen, Urine NORM (Normal)
--- NOTE | 2021-09-18 19:11 | NUR ---
SHIFT SUMMARY PATIENT REMAINED ALERT AND ORIENTED X 4. PATIENT REMAINED AFEBRILE. PATIENT GIVEN PRN OXY AND FENTANYL FOR COMPLAINTS OF PAIN IN LEFT FOOT. PATIENT HAS REMAINED SUPINE OR WITH HIPS SLIGHTLY TILTED. PATIENT KNOWS NOT TO BEND KNEE OR TRY TO SIT UP. PATIENT HAS REMAINED SATTING 90% AND GREATER ON RA. PATIENT HAS REMAINED SB, HR 40S TO 50S. SBP 90S TO 140S. NO BM THIS SHIFT. LEI PLACED PATIENT COULD NOT VOID. LEI DRAINING YELLOW COLORED URINE. TPA INFUSING AT 1 MG/ HOUR INTO GROIN SHEATH. HEPARIN INFUSING AT 500 UNITS/ HOUR INTO PERIPHERAL IV. PATIENT TO BE NPO AT 0130. PLAN IS TO HEAD BACK TO DEPUTY DIRECTOR OF FINANCE IN AM. HOSPITALIST CONSULTED AT END OF SHIFT PER JR. NO COMPLAINTS AT THIS TIME. BED LOW, CALL LIGHT IN REACH. REPORT HAS BEEN GIVEN TO ASSUMING TURPENTINER NURSE.
--- NOTE | 2021-09-18 19:30 | NUR ---
PATIENT RECEIVED FROM TAISHA CORNELIUS. LYING IN BED, RIGHT GROIN SITE WITH OOZING OF FRESH RED BLOOD, INFUSING ALTEPLASE @ 1MG/HR. RIGHT LEG WITH GOOD PULSES AND GOOD CIRCULATION CHECK. LEFT LEG NORMAL COLOR, FOOT AND ANKLE MORE RED THAN LEG AND CALF. FAINT PULSES FELT IN THE FOOT, WITH GOOD DOPPLAR HEARD. LUNGS CLEAR, ABD SOFT, NON TENDER, LEI PATENT CLEAR YELLOW RETURN. WHEN PATIENT HAS PAIN, HE SAYS IT IS INTERMITTENT AND SUDDEN, NOT CONTINUOUS. MEDICATED PER DEC.
--- NOTE | 2021-09-18 22:42 | NUR ---
HUMA CALLED TO SAY THAT HE THOUGHT "THIS THING IS LEAKING". WHEN ASSESSING THE RIGHT GROIN, THERE IS EVIDENCE OF BLEEDING ON THE GOWN, ABOUT THE SIZE OF A SAND DOLLAR. THE SITE IS SEEPING, THE DRESSING IS SATURATED AND LEAKING ALONG THE SCROTUM. SITE IS PALPATED AND NOTED TO HAVE ABOUT 3-5CM HARDENED AREA SUPERIOR TO THE PUNCTURE SITE. CALLED, ORDERS RECEIVED, DRESSING CHANGED VIA STERILE TECHNIQUE, WITH SLIGHT LEAKING NOTED. FEM-STOP PLACED WITH ZERO PRESSURE FOR CONSTANT PRESSURE. ALTEPLASE tPA DECREASED TO 0.5MG/HR. PALPATION DONE AFTER DRESSING CHANGE AND THE 3-5CM AREA HAS DECREASED TO 1-2CM. CONTINUE TO MONITOR.
--- NOTE | 2021-09-19 02:37 | NUR ---
CAME IN TO GIVE PAIN MEDICATION AND CHECK RIGHT GROIN, NOTED THE FEMSTOP HAD MOVED AND THE DRESSING WAS COMPLETELY SATURATED. GOOD PULSE, NO HEMATOMA FELT. PT'S GROIN SITE CLEANED AND REDRESSED, LOG ROLLED TO REMOVE SOILED SHEETS BENEATH HIM. PT KNOWS TO ASK FOR ASSISTANCE WHEN MOVING AND REPOSITIONING.
--- NOTE | 2021-09-19 03:45 | NUR ---
PRESSURE ADDED TO FEMSTOP RO 45MMHG, PT OK WITH PRESSURE.
--- NOTE | 2021-09-19 04:20 | NUR ---
PRESSURE OF FEMSTOP DOWN TO 25MM/HG PER PATIENT C/O PAIN AND DISCOMFORT. NO SWELLING OR DISCOLORATION NOTED, PT WITH GOOD PULSES.
--- NOTE | 2021-09-19 04:57 | NUR ---
PT COMPLAINS OF "UNBEARABLE" PAIN IN THE GROIN. STATES IT'S MISERABLE. SITE CHECKED, NO ADDITIONAL LEAKING NOTED, NO FIRMNESS PALPATED, GOOD PULSE, NO DISCOLORATION. PT MEDICATED PER DEC, REPOSITIONED WITH PILLOWS.
--- NOTE | 2021-09-19 06:53 | NUR ---
[facility]MA CONTINUES WITH FEMSTOP IN PLACE @ 25MM/HG, SLIGHT OOZING NOTED AGAIN. PT DENIES DISCOMFORT, NO HEMATOMA NOTED OR FELT. PULSES GOOD. WILL REPORT TO DAY SHIFT.
--- NOTE | 2021-09-19 08:00 | NUR ---
LAB CALLED WITH CRITICAL FIBRINOGEN <50. PT HAD JUST BEEN TAKEN TO [facility]OLOG[facility] AT THIS TIME. I CALLED DOWN TO [facility] TO NOTIFY PROVIDER OF RESULT. [facility] GEOLOGIST SAID THEY SAW THE RESULT. ABOUT 20 MINUTES LATER, LAB CALLED AND NOTIFIED ME THAT THE FIBRINOGEN RESULT SHE CALLED ABOUT WAS INCORRECT, AND RESULT WAS ACTUALLY 68. I CALLED DOWN TO [facility] AND NOTIFIED PROVIDER AND TEAM OF THIS CORRECTED RESULT.
--- NOTE | 2021-09-19 10:30 | NUR ---
PT RETURNED FROM [facility] WITH FEMSTOP IN PLACE. DROWSY BUT EASILY AROUSABLE. NO HEMATOMA NOTED. DRIED SANGINOUS DRAINAGE ON DRESSING AT LEFT FOOT SITE BUT NOT INCREASING. BILATERAL PEDAL AND TIBIAL PULSE FOUND BY DOPPLER.
--- NOTE | 2021-09-19 13:12 | NUR ---
DR. NORRIS NOTIFIED OF CONTINUED BLEEDING FROM R GROIN SITE. ORDERED TO CONTINE FEMSTOP FOR A FEW MORE HOURS. ALSO NOTIFIED OF DECREASED FIBRINOGEN FROM 89 TO 68. REPEAT FIBRINOGEN ORDERED.
--- NOTE | 2021-09-19 16:29 | NUR ---
DR. NORRIS CALLED ABOUT MOST RECENT FIBRINOGEN LEVEL. NO ANSWER. VOICEMAIL LEFT WITH REQUEST TO CALL BACK. AWAITING REPLY.
--- NOTE | 2021-09-19 17:02 | NUR ---
RECEIVED CALL BACK FROM DR. NORRIS. HE WAS NOTIFIED OF NEW FIBRINOGEN RESULT OF 84. ORDERS TO KEEP PT IN HOSPITAL OVERNIGHT, CHECK H&H AND FIBRINOGEN IN AM, AND RESTART HOME MEDS, BUT HOLD XARELTO UNTIL MORNING.
--- NOTE | 2021-09-19 19:18 | NUR ---
FEMSTOP NOW REMOVED AROUND 1800. NO NEW DRAINAGE SINCE REMOVAL. DR. NORRIS AT BEDSIDE SAID PT OK TO HAVE NORMAL ACTIVITY AND BATHROOM PRIVELIDGES. BLE PEDAL AND PT PULSES STILL PRESENT WITH DOPPLER ASSESSMENT. SB 40S-60S. SBP 100S-120S THIS SHIFT. ROOM AIR. QUIQUE REMOVED - 1200CC UOP TODAY.
--- NOTE | 2021-09-19 20:54 | NUR ---
PT RECEIVED FROM BORIS. DURING BEDSIDE REPORT PATIENT ASKED TO GET UP TO USE THE BATHROOM. STANDBY ASSIST, WITH HIS CANE HE WAS STEADY AND MOVED WELL. HE WAS ABLE TO GO TO THE BATHROOM AND CALLED FOR ASSISTANCE WHEN HE RETURNED TO THE BED. HIS RIGHT GROIN SITE HAS NO EVIDENCE OF LEAKING. 1+ PULSES TO BOTH FEET WITH WARMTH AND COLOR. PT IS LESS PAINFUL TODAY AND IS ONLY STATING THAT HIS FOOT IS BOTHERSOME. AFTER HIS EVENING MEDS WERE GIVEN, I CHANGED THE DRESSING AT THE RIGHT GROIN, WITH GOOD CLOT NOTED, CLEANED AND DRESSED WITH OPSITE SO TO OBSERVE T/O THE SHIFT. PT STATES HE IS LOOKING FORWARD TO GETTING SOME SLEEP.
--- NOTE | 2021-09-20 00:27 | NUR ---
HUMA HAS BEEN ABLE TO REST QUIETLY SINCE AROUND 2129, HE WAS JUST AWAKENED FOR LAB AND THEN RETURNS TO RESTING. NO OTHER CHANGES NOTED.
--- NOTE | 2021-09-20 05:47 | NUR ---
HUMA SAYS HE SLEPT THE BEST HE HAS SLEPT IN DAYS. HE ASKED FOR PAIN MEDS THIS AM, DISCUSSED HAVING ONLY THE ORAL MEDS HE IS GOING TO BE GOING HOME AND WON'T HAVE HIS IV. HE SAID HE WANTED BOTH. HE WAS ABLE TO GET UP TO THE COM- MODE IN THE ROOM WITH HIS CANE, MOVES WELL. TAKING PO WELL, VITALS HAVE BEEN STABLE AND PULSES HAVE REMAINED PALPABLE, WITH GOOD TEMP AND COLOR TO THE EXTREMETIES.
[2021-09-20 06:28] LABS: Hematocrit 28.5 % (37.0-53.0); Hemoglobin 9.1 g/dL (13.5-17.5)
--- NOTE | 2021-09-20 07:58 | NUR ---
pleasant to care, wakes easily, wanting am meds after breakfast, no distress, patients states he is ready to go home
--- NOTE | 2021-09-20 08:34 | NUR ---
DR COOL ROUNDED, REPORTED BRADYCARDIA 30-50S, HOLDING LISINOPRIL AND IMSHANNAUR, DR COOL TO [facility] ASSEMBLER TO MAKE SURE PATIENT IS SAFE TO DISCHARGE HOME
--- NOTE | 2021-09-20 11:10 | NUR ---
new bandage stella to right groin site, oozing chela blood, no new drainage since this am, will monitor drainage on new bandage before discahrged home, charge nurse carol at bedside
--- NOTE | 2021-09-20 12:25 | NUR ---
right groin site checked, sue sized dark red drainage, charge nurse bre bergman and humera monaco rn viewed the site also, patient ok to go home
--- NOTE | 2021-09-20 12:50 | NUR ---
PATIENT DISCHARGED VIA W/C, BROTHER KAYLI PICKED PATIENT UP
== END 2021-09-20 12:30 | disposition home or self-care (01) | DRG 271 ==
LOC: ICUW 08:41 → MHTC 08:41 → ICUW 12:00 → MHTC 09-20 09:05 → ICUW 09-20 12:30
PROVIDERS: ADMIT Radiology Diagnostic Radiology
PROC: B41FYZZ Fluoroscopy of Right Lower Extremity Arteries using Other Contrast (ICD-10-PCS; 2021-09-18)
PROC: 3E05317 Introduction of Other Thrombolytic into Peripheral Artery, Percutaneous Approach (ICD-10-PCS; 2021-09-18)
PROC: 04CL3ZZ Extirpation of Matter from Left Femoral Artery, Percutaneous Approach (ICD-10-PCS; principal; 2021-09-19)
PROC: 04CN3ZZ Extirpation of Matter from Left Popliteal Artery, Percutaneous Approach (ICD-10-PCS; 2021-09-19)
PROC: 04FU3ZZ Fragmentation of Left Peroneal Artery, Percutaneous Approach (ICD-10-PCS; 2021-09-19)
PROC: 04FS3ZZ Fragmentation of Left Posterior Tibial Artery, Percutaneous Approach (ICD-10-PCS; 2021-09-19)
PROC: 047S3ZZ Dilation of Left Posterior Tibial Artery, Percutaneous Approach (ICD-10-PCS; 2021-09-19)
PROC: 047U3ZZ Dilation of Left Peroneal Artery, Percutaneous Approach (ICD-10-PCS; 2021-09-19)
PROC: 047N3ZZ Dilation of Left Popliteal Artery, Percutaneous Approach (ICD-10-PCS; 2021-09-19)
DX: T82.856A Stenosis of peripheral vascular stent, initial encounter (principal); L97.429 Non-pressure chronic ulcer of left heel and midfoot with unspecified severity; E11.51 Type 2 diabetes mellitus with diabetic peripheral angiopathy without gangrene; Z88.8 Allergy status to other drugs, medicaments and biological substances; I25.10 Atherosclerotic heart disease of native coronary artery without angina pectoris; E78.5 Hyperlipidemia, unspecified; R00.1 Bradycardia, unspecified; I10 Essential (primary) hypertension; E03.9 Hypothyroidism, unspecified; E11.621 Type 2 diabetes mellitus with foot ulcer; Z95.5 Presence of coronary angioplasty implant and graft; E11.40 Type 2 diabetes mellitus with diabetic neuropathy, unspecified; G89.4 Chronic pain syndrome; Z85.51 Personal history of malignant neoplasm of bladder; Z98.890 Other specified postprocedural states; Z89.432 Acquired absence of left foot; Z88.2 Allergy status to sulfonamides; Z86.73 Personal history of transient ischemic attack (TIA), and cerebral infarction without residual deficits; Z87.891 Personal history of nicotine dependence; Z79.82 Long term (current) use of aspirin; Z79.899 Other long term (current) drug therapy; Z79.4 Long term (current) use of insulin; Z90.49 Acquired absence of other specified parts of digestive tract
CPT/HCPCS: 36415; 37184; 37185; 37211; 37214; 37224; 37228; 37232; 75716; 75774; 76937; 81003; 82947; 85014; 85018; 85347; 85384; 99152; 99153; A9270; C1725; C1751; C1757; C1760; C1769; C1887; C1894; J1644; J1815; J2250; J2997; J3010; J7030; J7040; J7050; Q9967

== ENCOUNTER 2021-09-24 05:44 | Day surgery (SDC) | payer OTHER | END 2021-09-24 22:53 | disposition home or self-care (01) | LOC: WOUND 05:44 | DX: E11.621 Type 2 diabetes mellitus with foot ulcer (principal); L97.509 Non-pressure chronic ulcer of other part of unspecified foot with unspecified severity; Z89.422 Acquired absence of other left toe(s) | CPT/HCPCS: G0463 ==

== ENCOUNTER 2021-10-14 09:27 | Day surgery (SDC) | payer OTHER | END 2021-10-14 23:45 | disposition home or self-care (01) | LOC: WOUND 09:27 | DX: E11.621 Type 2 diabetes mellitus with foot ulcer (principal); L97.525 Non-pressure chronic ulcer of other part of left foot with muscle involvement without evidence of necrosis; L97.522 Non-pressure chronic ulcer of other part of left foot with fat layer exposed; L89.892 Pressure ulcer of other site, stage 2; Z89.422 Acquired absence of other left toe(s) | CPT/HCPCS: G0463 ==

== ENCOUNTER 2021-10-22 15:00 | Inpatient (IN) | payer OTHER ==
[~2021-10-22] VITALS: Ht 177.8 cm; Wt 78.8 kg
[2021-10-22 16:14] LABS: Alanine Aminotransfer (ALT/SGP 31 U/L (12-78); Albumin, Blood 3.6 g/dL (3.4-5.0); Albumin/Globulin Ratio 0.8 (0.8-1.8); Alk Phos 118 U/L (50-136); Anion Gap 20 mmol/L (6-16); Aspartate Aminotrans (AST/SGOT 14 U/L (12-37); Bilirubin, Total 0.5 mg/dL (0.1-1.0); Blood Urea Nitrogen 23 mg/dL (8-24); Bun/Creatinine Ratio 22.5 (12.0-20.0); CO2, Blood 15 mmol/L (21-32); Calcium, Blood 10.2 mg/dL (8.5-10.1); Chloride, Blood 95 mmol/L (98-108); Creatinine, Blood 1.02 mg/dL (0.60-1.20); Globulin, Blood 4.6 g/dL (2.2-4.0); Glomerular Filtration Rate >60 (60-); Glucose, Blood 475 mg/dL (70-99); Potassium, Blood 5.1 mmol/L (3.5-5.5); Sodium, Blood 130 mmol/L (136-145); Total Protein, Blood 8.2 g/dL (6.4-8.2)
[2021-10-22 16:35] LABS: BASOPHILS ABSOLUTE AUTO 0.06 K/mm3 (0.00-0.23); BASOPHILS PERCENT AUTO 1 % (0-2); EOSINOPHILS ABSOLUTE AUTO 0.06 K/mm3 (0.00-0.68); EOSINOPHILS PERCENT AUTO 1 % (0-6); Hemoglobin 13.9 g/dL (13.5-17.5); IMMATURE GRAN ABSOLUTE AUTO 0.06 K/mm3 (0.00-0.10); IMMATURE GRAN PERCENT AUTO 1 % (0-1); LYMPHOCYTES ABSOLUTE AUTO 1.03 K/mm3 (0.84-5.20); LYMPHOCYTES PERCENT AUTO 12 % (21-46); MONOCYTES ABSOLUTE AUTO 0.42 K/mm3 (0.16-1.47); MONOCYTES PERCENT AUTO 5 % (4-13); Mean Corpuscular HGB 26.4 pg (26.0-34.0); Mean Corpuscular HGB Conc 31.6 g/dL (31.5-36.5); Mean Corpuscular Volume 84 fL (80-100); Mean Platelet Volume 9.9 fL (9.1-12.4); NEUTROPHILS ABSOLUTE AUTO 7.34 K/mm3 (1.96-9.15); NEUTROPHILS PERCENT AUTO 82 % (41-73); Platelet Count 340 K/mm3 (150-400); RDW Coefficient Variation 14.6 % (11.7-14.2); RDW Standard Deviation 43.9 fL (35.1-46.3); Red Blood Cell Count 5.27 M/mm3 (4.30-5.90); White Blood Cell Count 8.97 K/mm3 (4.00-11.30)
[2021-10-22 17:31] LABS: Base Excess Venous -12.2 mmol/L; Bicarbonate Venous 14.8 mmol/L (24.0-30.0); PCO2 Venous 41.1 mmHg (38-42); pH Blood Venous 7.19 (7.34-7.37)
--- NOTE | 2021-10-22 22:00 | NUR ---
Assumed care. Pt arrived from ED. Pt alert and oriented, following directions. VS stable, on room air. IV access in L/AC, insulin running at 4.1 units/hr, LR running wide open. Pt able to transfer himself to ICU bed without difficulty. Will continue to monitor
[2021-10-22 22:20] LABS: Anion Gap 15 mmol/L (6-16); Blood Urea Nitrogen 22 mg/dL (8-24); Bun/Creatinine Ratio 27.6 (12.0-20.0); CO2, Blood 17 mmol/L (21-32); Calcium, Blood 9.7 mg/dL (8.5-10.1); Chloride, Blood 101 mmol/L (98-108); Glomerular Filtration Rate >60 (60-); Glucose, Blood 309 mg/dL (70-99); Magnesium, Blood 1.6 mg/dL (1.6-2.4); Phosphorus, Blood 2.7 mg/dL (2.5-4.9); Potassium, Blood 4.8 mmol/L (3.5-5.5); Sodium, Blood 133 mmol/L (136-145)
[2021-10-23 01:45] LABS: Anion Gap 9 mmol/L (6-16); Blood Urea Nitrogen 18 mg/dL (8-24); Bun/Creatinine Ratio 24.6 (12.0-20.0); CO2, Blood 24 mmol/L (21-32); Calcium, Blood 8.7 mg/dL (8.5-10.1); Chloride, Blood 104 mmol/L (98-108); Creatinine, Blood 0.73 mg/dL (0.60-1.20); Glomerular Filtration Rate >60 (60-); Glucose, Blood 176 mg/dL (70-99); Magnesium, Blood 1.4 mg/dL (1.6-2.4); Phosphorus, Blood 1.7 mg/dL (2.5-4.9); Potassium, Blood 3.6 mmol/L (3.5-5.5); Sodium, Blood 137 mmol/L (136-145)
[2021-10-23 04:44] LABS: Anion Gap 7 mmol/L (6-16); Blood Urea Nitrogen 16 mg/dL (8-24); Bun/Creatinine Ratio 22.8 (12.0-20.0); CO2, Blood 24 mmol/L (21-32); Calcium, Blood 8.4 mg/dL (8.5-10.1); Chloride, Blood 106 mmol/L (98-108); Glomerular Filtration Rate >60 (60-); Glucose, Blood 224 mg/dL (70-99); Magnesium, Blood 1.8 mg/dL (1.6-2.4); Phosphorus, Blood 1.7 mg/dL (2.5-4.9); Potassium, Blood 3.5 mmol/L (3.5-5.5); Sodium, Blood 137 mmol/L (136-145)
--- NOTE | 2021-10-23 06:00 | NUR ---
Shift summary. Pt continues in bed, ventilated via trach. Vent settings changed at beginning of shift from spontaneous back to AC/VC 16/320/5/30%. TF running at goal rate, PEG tube WNL. PICC INGE. Noguera catheter in place, 425 mls out this shift. VS stable, see shift assessment for further details. Will continue to monitor and report off to dayshift RN.
--- NOTE | 2021-10-23 06:12 | NUR ---
Shift summary. Pt rested quietly in bed since admission. Alert and oriented when awake. Powerglide put in HAILY, IV in L/AC . Insulin running at 2 units/hr, D5-1/2NS at 150/hr, Kphos running at 100/hr. One dose of PRN Vasotec given for systolic BP above 160. VS stable throughout shift. See shift assessment for further details. Will continue to monitor and report off to dayshift RN.
[2021-10-23 10:13] LABS: Anion Gap 6 mmol/L (6-16); Blood Urea Nitrogen 12 mg/dL (8-24); Bun/Creatinine Ratio 17.4 (12.0-20.0); CO2, Blood 24 mmol/L (21-32); Calcium, Blood 8.2 mg/dL (8.5-10.1); Chloride, Blood 108 mmol/L (98-108); Creatinine, Blood 0.69 mg/dL (0.60-1.20); Glomerular Filtration Rate >60 (60-); Glucose, Blood 152 mg/dL (70-99); Magnesium, Blood 1.7 mg/dL (1.6-2.4); Phosphorus, Blood 3.5 mg/dL (2.5-4.9); Sodium, Blood 138 mmol/L (136-145)
--- NOTE | 2021-10-23 14:24 | NUR ---
Discussed hgb a1c value of 13.8% with patient. Patient reported that his hgb a1c has typically ranged from 9-10% in the past. Pt checks his blood glucose in the mornings and typically has a fasting blood glucose of 250 mg/dL. Discussed hgb a1c and blood glucose targets with pt. Pt has had the same diabetes medication for the past several years. Pt has been trying to make an appointment to meet with an hr specialist but kept being denied. Pt is currently on a waiting list to meet with a [employer] hr specialist, but he plans to visit one in [place] if he is unable to make an appointment. Pt has a moderate understanding of dietary recommendations. Pt tries to eat 65 g CHO at meals but he felt like that amount was too high. Discussed recommended range with patient, and encouraged him to focus on consistent CHO intake at meals. Pt was unable to access his long-acting insulin CHIN STRAP SEWER d/t a lapse in prescriptions, so blood glucose management should improve now that he has his insulin again. Encouraged pt that setting up an appointment with an hr specialist is a great step he can take towards better blood glucose control. Good compliance expected.
--- NOTE | 2021-10-23 14:34 | NUR ---
DISCHARGE PT DISCHARGED TO HOME VIA CAR. IV'S DISCONTINUED. REVIEWED DISCHARGE MEDICATIONS AND INSTRUCTIONS WITH PT. DISCUSSED HOME HEALTH WITH SOFTWARE LICENSING ANALYST. SOFTWARE LICENSING ANALYST TO SET UP HOME HEALTH FOR PT. PT LEFT ROOM 16 VIA WHEELCHAIR AT 1425. ALL BELONGINGS SENT WITH PT.
--- NOTE | 2021-10-24 16:44 | NUR ---
Received referral from nurse palliative care nurse (Adele Stanford) on 10/23/2021 at 1348. Patient was admitted to [facility]'s ICU on 10/22/2021 due to DKA. Patient discharged on 10/23/2021 with orders for home health and elected [facility]. Attempted to reach patient on 10/23/2021 at 1506. Unfortunately patient did not answer. Left voicemail asking patient to return this newspaper writer's call. Second attempted to reach patient on 10/24/2021 at 1117. Unfortunately patient did not answer. Left voicemail asking patient to return this newspaper writer's call. Third and final attempted to reach patient on 10/24/2021 at 1635. Spoke with patient regarding home health services. Discussed with patient the homebound status requirements for home health. Patient does note that he is able to ambulate and has not had any falls. Per chart review, patient is able to transfer on his own without assistance. Discussed with patient that home health is an intermittent skilled service, at which point patient states that "this was more of my brother and [id number]'s idea. I live with them and after about 0830 they aren't home and I am by myself. They just want someone to come in and check on me". Discussed again with patient that home health is an intermittent service and there does need to be a skilled need. Patient states "Well it's hard to reach the wounds [that patient has had for at least a year] and I can't really get to the dressings on my foot on my own". Discussed with patient his VA benefits and that recommended that patient contact his primary care at the [facility] to discuss arranging caregivers to come in and check on him and assist. Patient is agreeable to this plan and states he will do so tomorrow- 10/25/2021. Informed patient that if something changed they could always request services through their primary care provider. Patient verbalized understanding. No further interventions required. Iliana Sharp Referral Liaison
== END 2021-10-23 14:31 | disposition home health service (06) | DRG 638 ==
LOC: ER 15:00 → ICUW 21:15 → ERHOLD 21:15 → ICUW 21:55
PROVIDERS: Family Medicine; Physician Assistant; ADMIT Internal Medicine
DX: E11.10 Type 2 diabetes mellitus with ketoacidosis without coma (principal); E87.1 Hypo-osmolality and hyponatremia; I25.10 Atherosclerotic heart disease of native coronary artery without angina pectoris; E78.5 Hyperlipidemia, unspecified; I10 Essential (primary) hypertension; E03.9 Hypothyroidism, unspecified; E11.51 Type 2 diabetes mellitus with diabetic peripheral angiopathy without gangrene; E11.65 Type 2 diabetes mellitus with hyperglycemia; G89.29 Other chronic pain; E11.40 Type 2 diabetes mellitus with diabetic neuropathy, unspecified; Z91.14 Patient's other noncompliance with medication regimen; Z95.5 Presence of coronary angioplasty implant and graft; Z90.49 Acquired absence of other specified parts of digestive tract; Z98.890 Other specified postprocedural states; Z87.891 Personal history of nicotine dependence; Z86.73 Personal history of transient ischemic attack (TIA), and cerebral infarction without residual deficits; Z88.2 Allergy status to sulfonamides; Z79.01 Long term (current) use of anticoagulants; Z79.82 Long term (current) use of aspirin; Z79.899 Other long term (current) drug therapy
CPT/HCPCS: 36415; 80048; 80053; 82803; 82947; 83036; 83735; 84100; 84484; 85025; 87081; 93005; 93010; 99285-25; A9270; C1751; C9113; J1650; J1815; J3475; J7030; J7040; J7042; J7120

== ENCOUNTER 2021-11-01 06:06 | Day surgery (SDC) | payer OTHER | END 2021-11-01 23:41 | disposition home or self-care (01) | LOC: WOUND 06:06 | DX: E11.621 Type 2 diabetes mellitus with foot ulcer (principal); L97.525 Non-pressure chronic ulcer of other part of left foot with muscle involvement without evidence of necrosis; L89.622 Pressure ulcer of left heel, stage 2; E11.51 Type 2 diabetes mellitus with diabetic peripheral angiopathy without gangrene; E11.59 Type 2 diabetes mellitus with other circulatory complications; I25.10 Atherosclerotic heart disease of native coronary artery without angina pectoris; K21.9 Gastro-esophageal reflux disease without esophagitis; E78.5 Hyperlipidemia, unspecified; I10 Essential (primary) hypertension; Z89.422 Acquired absence of other left toe(s); Z86.73 Personal history of transient ischemic attack (TIA), and cerebral infarction without residual deficits | CPT/HCPCS: G0463 ==

== ENCOUNTER 2021-11-08 05:16 | Day surgery (SDC) | payer OTHER | END 2021-11-08 12:00 | disposition home or self-care (01) | LOC: WOUND 05:16 | DX: E11.621 Type 2 diabetes mellitus with foot ulcer (principal); L97.522 Non-pressure chronic ulcer of other part of left foot with fat layer exposed; L89.620 Pressure ulcer of left heel, unstageable; E11.59 Type 2 diabetes mellitus with other circulatory complications; E11.51 Type 2 diabetes mellitus with diabetic peripheral angiopathy without gangrene; I70.213 Atherosclerosis of native arteries of extremities with intermittent claudication, bilateral legs; I25.10 Atherosclerotic heart disease of native coronary artery without angina pectoris; K21.9 Gastro-esophageal reflux disease without esophagitis; E78.5 Hyperlipidemia, unspecified; I10 Essential (primary) hypertension; Z89.422 Acquired absence of other left toe(s); Z86.73 Personal history of transient ischemic attack (TIA), and cerebral infarction without residual deficits | CPT/HCPCS: A9270 ==

== ENCOUNTER 2021-11-13 01:31 | Day surgery (SDC) | payer OTHER | END 2021-11-13 23:04 | disposition home or self-care (01) | LOC: WOUND 01:31 | DX: E11.621 Type 2 diabetes mellitus with foot ulcer (principal); L97.522 Non-pressure chronic ulcer of other part of left foot with fat layer exposed; L89.622 Pressure ulcer of left heel, stage 2; E11.51 Type 2 diabetes mellitus with diabetic peripheral angiopathy without gangrene; E11.59 Type 2 diabetes mellitus with other circulatory complications; I25.10 Atherosclerotic heart disease of native coronary artery without angina pectoris; I10 Essential (primary) hypertension; E78.5 Hyperlipidemia, unspecified; Z89.422 Acquired absence of other left toe(s) | CPT/HCPCS: A9270 ==

== ENCOUNTER 2021-11-20 08:00 | Day surgery (SDC) | payer OTHER | END 2021-11-20 23:59 | disposition home or self-care (01) | LOC: WOUND 08:00 | DX: E11.621 Type 2 diabetes mellitus with foot ulcer (principal); L97.522 Non-pressure chronic ulcer of other part of left foot with fat layer exposed; L89.620 Pressure ulcer of left heel, unstageable; E11.51 Type 2 diabetes mellitus with diabetic peripheral angiopathy without gangrene; E11.59 Type 2 diabetes mellitus with other circulatory complications; I25.10 Atherosclerotic heart disease of native coronary artery without angina pectoris; I10 Essential (primary) hypertension; Z89.422 Acquired absence of other left toe(s); Z86.73 Personal history of transient ischemic attack (TIA), and cerebral infarction without residual deficits | CPT/HCPCS: Q4133 ==

== ENCOUNTER 2021-11-27 00:41 | Day surgery (SDC) | payer OTHER | END 2021-11-27 23:32 | disposition home or self-care (01) | LOC: WOUND 00:41 | DX: E11.621 Type 2 diabetes mellitus with foot ulcer (principal); L97.529 Non-pressure chronic ulcer of other part of left foot with unspecified severity; T87.89 Other complications of amputation stump; E11.51 Type 2 diabetes mellitus with diabetic peripheral angiopathy without gangrene; I25.10 Atherosclerotic heart disease of native coronary artery without angina pectoris; K21.9 Gastro-esophageal reflux disease without esophagitis; E78.5 Hyperlipidemia, unspecified; I10 Essential (primary) hypertension; I25.2 Old myocardial infarction; Z86.73 Personal history of transient ischemic attack (TIA), and cerebral infarction without residual deficits | CPT/HCPCS: A9270 ==

== ENCOUNTER 2021-12-13 01:01 | Day surgery (SDC) | payer OTHER | END 2021-12-13 23:54 | disposition home or self-care (01) | LOC: WOUND 01:01 | DX: E11.621 Type 2 diabetes mellitus with foot ulcer (principal); L97.522 Non-pressure chronic ulcer of other part of left foot with fat layer exposed; L97.429 Non-pressure chronic ulcer of left heel and midfoot with unspecified severity; L89.622 Pressure ulcer of left heel, stage 2; E11.59 Type 2 diabetes mellitus with other circulatory complications; I25.10 Atherosclerotic heart disease of native coronary artery without angina pectoris; E11.51 Type 2 diabetes mellitus with diabetic peripheral angiopathy without gangrene; I70.213 Atherosclerosis of native arteries of extremities with intermittent claudication, bilateral legs; K21.9 Gastro-esophageal reflux disease without esophagitis; E78.5 Hyperlipidemia, unspecified; I10 Essential (primary) hypertension; Z89.422 Acquired absence of other left toe(s); Z86.73 Personal history of transient ischemic attack (TIA), and cerebral infarction without residual deficits; Z86.31 Personal history of diabetic foot ulcer | CPT/HCPCS: A9270; G0463 ==

== ENCOUNTER 2021-12-23 08:08 | Observation (INO) | payer OTHER ==
[~2021-12-23] VITALS: Ht 180.3 cm; Wt 88.9 kg
--- NOTE | 2021-12-23 14:00 | NUR ---
ASSUMED CARE. PATIENT ARRIVED FROM THE ACTIVITY THERAPY TEACHER VIA GURNEY. AOX3, DROWSY BUT ABLE TO ANSWER ALL QUESTIONS APPROPRIATLY. FIRST SET OF VITALS OBTAINED. SINUS JAMIN ON MONITOR. SATS GOOD ON RA. LS WNL. 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 HE HAS HAD MULTIPLE ANGIOGRAMS DONE ON THIS FOOT. PULSES FAINT, FOOT HAS ULCER TO HEEL OPEN TO AIR, CLEANSED, PICTURE TAKEN, AND DRESSING APPLIED. BOTH INSERTION SITES DRESSINGS INTACT ON LEFT FOOT. FOOT COOL TO TOUCH. RIGHT GROIN HAS LONG CATHETER INTO ARTERY FOR TPA TO BE GIVEN THROUGH. LEFT PERIPHERAL INFUSING NS. WILL CONTINUE TO MONITOR, AND PROVIDE CARE.
--- NOTE | 2021-12-23 14:50 | NUR ---
TPA AND HEPARIN STARTED PER ORDERS. TPA INFUSING INTO ARTERIAL LINE IN THE RIGHT FEMERAL CATH. HEPARIN TO PERPHERIAL SITE.
--- NOTE | 2021-12-23 16:35 | NUR ---
PATIENT STARTED TO HAVE INCREASE IN PAIN AROUND 1500. HE STATED PAIN IS SHARP STABBING THAT GOES SHOOTING UP THE LEG. HE CONTINUES TO RAISE HIS LEG AND HEAD, WHICH HAS CAUSED SOME INCREASE IN BLEEDING TO THE PERIPHERIAL SITE ON THE RIGHT FOOT.. HE CONTINUES TO BE INSTRUCTED TO KEEP HIS LEG AND FOOT DOWN. DR. NORRIS WAS CALLED TWICE HE WAS IN A PROCEDURE. FINALLY GOT ORDER FOR DILUDID NOW DOSAGES AND THEN TO START A PROJECT FINANCE ANALYST. KASSI RN IN ROOM TO START A NEW IV LINE. HE HAS GOTTEN A TOTAL OF 3MG OF DILUDID IN THE LAST HOUR. AWAITING FOR IV SITE TO START PROJECT FINANCE ANALYST PUMP.
[2021-12-23 18:19] LABS: Source, Urine Foley catheter
[2021-12-23 18:23] LABS: Bilirubin, Urine Neg (Neg); Blood, Urine Neg (Neg); Glucose Qualitative, Urine Neg (Neg); Ketones, Urine Neg (Neg); Leukocyte Esterase, Urine Neg (Neg); Nitrite, Urine Neg (Neg); Protein, Urine Neg (Neg); Urobilinogen, Urine NORM (Normal); pH, Urine 6.5 (5.0-8.0)
[2021-12-23 18:42] LABS: Appearance, Urine Clear (Clear); Color, Urine Pale Yellow (P-Yellow)
--- NOTE | 2021-12-23 18:43 | NUR ---
SHIFT SUMMARY: RELL ARRIVED TO THE FLOOR FROM MOTTLER MACHINE FEEDER AROUND 1400. AOX3, ABLE TO MAKE NEEDS KNOWN. DROWSY BUT ALERT. HX: NEUROPATHY TO BLE, R/T DM. FREQUENTLY HERE FOR THE SAME PROCEDURE ON THE LEFT FOOT. LUNGS ARE CLEAR T/O ON RA. NO COUGH OR CONGESTION NOTED. SINUS JAMIN ON THE MONITOR FROM 55-60, STATES THIS IS NORMAL. DR. NORRIS PLACED STENT TO THE SFA OF THE LEFT LEG. FOOT ALREADY HAD AMPUTATION OF THE TOES , THERE IS NON-HEALING ULCER TO THE LEFT HEEL, BLACK ESCAR, SCANT AMOUNT OF BLOODY DRAINAGE. THERE ARE 2 INSERTION SITES ON THE LEFT FOOT, DRESSINGS ARE INTACT WITH SCANT AMOUNT OF BLOOD UNDERNEATH. UNABLE TO OBTAIN PULSES R/T DRESSINGS, FAINT ON THE LATERAL ANKLE WITH DOPPLER. FOOT IS COOL TO THE TOUCH. ARTERIAL CATH NOTED TO THE RIGHT FEMORAL SITE GOING INTO THE LEFT LEG FOR TPA INFUSION TO FUTHER BREAK UP BLOCKAGE. SITE IS CLEAR OF HEMATOMA, SOFT, NON-BLEEDING. SITES ON THE LEFT FOOT ARE THE SAME. INSTRUCTED ON SEVERAL OCCATIONS TO NOT MOVE THE LEG OR COMMUNICATIONS PROFESSOR HEAD. OTHER THEN LEFT HEEL, HE HAS ANOTHER START OF AN ULCER TO THE RIGHT MEDIAL HEEL. PICS WERE TAKEN AND PLACED IN CHART. BTX4, BM TODAY PRIOR TO PROCEDURE. LEI CATH PLACED FOR I&O AND STRICT BEDREST. UA SENT PER PROTOCOL. TPA STARTED TO THE RIGHT FEMORAL, HEPARIN TO LEFT AC PERIPHERAL BOTH PER ORDERS. NO SIGNS OF BLEEDING. HE DID HAVE INCREASE IN PAIN AROUND 1500 THIS AFTERNOON, HE WAS GIVEN A TOTAL OF 3MG IV DILUADID WITH IN AN HOUR AND DR. NORRIS ORDERED PLASTICATOR PUMP. POWERGLIDE STARTED TO LEFT UPPER ARM, DILUDID PLASTICATOR STARTED, INSTRUCTIONS GIVEN, VERBALIZED UNDERSTANDING. DID HAVE TO PLACE PATIENT ON 2 LITERS O2 DUE TO SATS DROPPING INTO HIGH 80'S. CURRENTLY RUNNING 96%. WILL NEED CONSTANT REMINDER NOT TO MOVE THAT LEG. BLOOD SUGAR CHECK LAST WAS 192, GAVE 1UNIT OF SS HUMOLOG. HOSPITALIST CONSULTED FOR PAIN AND DM MANAGEMENT. PATIENT IS CURRENTLY RESTING COMFORTABLY, HAS USED PLASTICATOR ONCE. SATS GOOD ON 2L 95%. LEI PATENT AND DRAINING WELL. WILL REPORT TO ONCOMING SHIFT.
--- NOTE | 2021-12-23 19:33 | NUR ---
ASSUMPTION OF CARE PT S/P STENT TO SFA LEFT FOOT. TPA INFUSING VIA RIGHT FEMORAL ACCESS AT 1MG. SITE CLEAN DRY INTACT W/NO BLEEDING/HEMATOMA. LEFT FOOT IS COOL TO THE TOUCH. PRIOR SHIFT UNABLE TO DOPPLER PULSE PRIOR TO MY ARRIVAL ACCORDING TO REPORT. I WAS UNABLE TO DOPPLER A POST TIB PULSE ON THE LATERAL SIDE, OTHER SITES (PEDAL AND POST TIB INNER INACCESSIBLE TO CHECK DUE TO PROCEDURE). DRESSINGS ARE DRY AND INTACT AT THIS TIME, REPORTED BLEEDING OF POST TIB SITE ON PRIOR SHIFT-DRESSING WAS CHANGED AND MIGUEL DRESSING PLACED. HEPARIN DRIP IS INFUSING AT 10ML/HR TO LEFT AC. PT REPORTS HAVING SENSATION TO AFFECTED EXTREMITY, IT IS COOL TO THE TOUCH AND DUSKY IN COLOR. PT HAS DILAUDID PATIENT CARE NURSING ASSISTANT FOR PAIN MANAGEMENT. PAIN ISSUES ON PRIOR SHIFT BUT PT REPORTS BEING COMFORTABLE AT THIS TIME. NO S/S OF ACUTE DISTRESS NOTED AT TIME OF ASSUMPTION OF CARE.
--- NOTE | 2021-12-23 20:58 | NUR ---
PT CONTINUES TO MOVE LOWER EXTREMITIES DESPITE REPEATED EDUCATION ON THE REASON FOR HIM TO KEEP EXTREMITIES STRAIGHT AND STILL POSSIBLE. REINFORCED PAIN MANAGEMENT AND ASSISTED WITH REPOSITIONING APPROPRIATE. WILL CONTINUE TO REINFORCE AND MONITOR.
--- NOTE | 2021-12-24 05:41 | NUR ---
SHIFT SUMMERY PT IS ORIENTED X 3. TPA INFUSING AT 0.5/HR, DECREASED FROM 1 PER MD ORDER. HEPARIN GTT INFUSING TO LEFT AC IV. DILAUDID TECHNICIAN AUTOMATIC DECREASED FROM 1MG/HR TO 0.5MG/HR OVERNIGHT DUE TO SEDATION. VSS, SEE ASSESSMENTS. PT NPO SINCE MIDNIGHT FOR PROCEDURE THIS AM.
--- NOTE | 2021-12-24 14:27 | NUR ---
RETURN FROM COOK ROOM SUPERVISOR PT RETURNED TO ROOM AT 1350 S/P COOK ROOM SUPERVISOR. PT WITH SHEATH OUT OF RIGHT FEMORAL SITE. UPON LIFTING BLANKETS, PT NOTED TO BE BLEEDING FROM FEMORAL SITE. MANUAL PRESSURE HELD FOR 30 MINUTES. NEW MIGUEL AND OPSITE DRESSING APPLIED. SMALL HEMATOMA NOTED. NO BRUISING OR OOZING AT THIS TIME. PT INSTRUCTED TO MAINTAIN LAYING FLAT AND NOT TO BEND AT LEG/HIP. DR NORRIS CAME TO BEDSIDE TO DISCUSS ORDERS AND PLAN OF CARE. PT TO BE DISCHARGED THIS EVENING ONCE GROIN SITE IS STABLE AND PO XARELTO HAS BEEN GIVEN. VITAL SIGNS STABLE. WILL CONTINUE TO MONITOR.
[2021-12-24] MEDS ORDERED: XARELTO20 MG PO (16:14)
--- NOTE | 2021-12-24 18:31 | NUR ---
DISCHARGE PT RIGHT FEMORAL GROIN SITE HAS REMAINED STABLE FOR GREATER THAN 2 HOURS S/P XARELTO. PT OK TO DISCHARGE HOME PER DR NORRIS. VITAL SIGNS HAVE REMAINED STABLE. QUIQUE AND ALL IV'S DC'D. REVIEWED ALL DISCHARGE INSTRUCTIONS WITH PT. PT VERBALIZED UNDERSTANDING. PT STOOD UP TO DRESS SELF. PT TAKEN OUT TO RIDE HOME VIA WHEELCHAIR AT 1830. ALL PT BELONGINGS SENT WITH PT.
== END 2021-12-24 18:30 | disposition home or self-care (01) ==
LOC: ICUW 08:08 → MHTC 08:08 → ICUW 13:51 → MHTC 12-24 11:51 → ICUW 12-24 11:51
PROVIDERS: ADMIT Radiology Diagnostic Radiology
DX: E11.51 Type 2 diabetes mellitus with diabetic peripheral angiopathy without gangrene (principal); E11.621 Type 2 diabetes mellitus with foot ulcer; I70.244 Atherosclerosis of native arteries of left leg with ulceration of heel and midfoot; I70.221 Atherosclerosis of native arteries of extremities with rest pain, right leg; L97.429 Non-pressure chronic ulcer of left heel and midfoot with unspecified severity; I10 Essential (primary) hypertension; E78.5 Hyperlipidemia, unspecified; I25.10 Atherosclerotic heart disease of native coronary artery without angina pectoris; K21.9 Gastro-esophageal reflux disease without esophagitis; I25.2 Old myocardial infarction; Z88.2 Allergy status to sulfonamides; Z86.73 Personal history of transient ischemic attack (TIA), and cerebral infarction without residual deficits; Z88.1 Allergy status to other antibiotic agents; Z87.891 Personal history of nicotine dependence; Z89.422 Acquired absence of other left toe(s); Z79.4 Long term (current) use of insulin
CPT/HCPCS: 36415; 51702; 76937; 81003; 82947; 85018; 85384; 96376; 99152; 99153; A9270; C1725; C1751; C1760; C1769; C1874; C1887; C1894; C2623; G0378; J1100; J1170; J1644; J1815; J2001; J2250; J2370; J2405; J2704; J2997; J3010; J7030; J7040; J7050; J7120; Q9967

== ENCOUNTER 2021-12-27 00:37 | Day surgery (SDC) | payer OTHER | END 2021-12-27 23:54 | disposition home or self-care (01) | LOC: WOUND 00:37 | DX: E11.621 Type 2 diabetes mellitus with foot ulcer (principal); L89.890 Pressure ulcer of other site, unstageable; L97.512 Non-pressure chronic ulcer of other part of right foot with fat layer exposed; T87.89 Other complications of amputation stump; E11.51 Type 2 diabetes mellitus with diabetic peripheral angiopathy without gangrene; I25.10 Atherosclerotic heart disease of native coronary artery without angina pectoris; I70.213 Atherosclerosis of native arteries of extremities with intermittent claudication, bilateral legs; Z89.422 Acquired absence of other left toe(s); K21.9 Gastro-esophageal reflux disease without esophagitis; E78.5 Hyperlipidemia, unspecified; I25.2 Old myocardial infarction; Z86.73 Personal history of transient ischemic attack (TIA), and cerebral infarction without residual deficits | CPT/HCPCS: A9270; G0463 ==

== ENCOUNTER 2021-12-27 18:18 | Emergency (ER) | payer OTHER ==
[~2021-12-27] VITALS: Ht 180.3 cm; Wt 83.0 kg
== END 2021-12-27 19:38 | disposition left against medical advice (07) ==
LOC: ER 18:18
DX: Z53.21 Procedure and treatment not carried out due to patient leaving prior to being seen by health care provider (principal)

== ENCOUNTER 2022-01-14 11:40 | Day surgery (SDC) | payer OTHER | END 2022-01-14 22:53 | disposition home or self-care (01) | LOC: WOUND 11:40 | DX: E11.621 Type 2 diabetes mellitus with foot ulcer (principal); L89.890 Pressure ulcer of other site, unstageable; L97.422 Non-pressure chronic ulcer of left heel and midfoot with fat layer exposed; E11.51 Type 2 diabetes mellitus with diabetic peripheral angiopathy without gangrene; E11.59 Type 2 diabetes mellitus with other circulatory complications; Z89.422 Acquired absence of other left toe(s) | CPT/HCPCS: A9270; G0463 ==

== ENCOUNTER 2022-01-24 00:26 | Day surgery (SDC) | payer OTHER | END 2022-01-24 23:11 | disposition home or self-care (01) | LOC: WOUND 00:26 | DX: E11.621 Type 2 diabetes mellitus with foot ulcer (principal); L97.428 Non-pressure chronic ulcer of left heel and midfoot with other specified severity; E11.51 Type 2 diabetes mellitus with diabetic peripheral angiopathy without gangrene; Z89.422 Acquired absence of other left toe(s) | CPT/HCPCS: A9270; G0463 ==

== ENCOUNTER 2022-04-10 04:40 | Emergency (ER) | payer OTHER ==
[~2022-04-10] VITALS: Ht 177.8 cm; Wt 83.9 kg
[2022-04-10 05:04] LABS: BASOPHILS ABSOLUTE AUTO 0.06 K/mm3 (0.00-0.23); BASOPHILS PERCENT AUTO 1 % (0-2); EOSINOPHILS ABSOLUTE AUTO 0.34 K/mm3 (0.00-0.68); EOSINOPHILS PERCENT AUTO 5 % (0-6); Hematocrit 34.4 % (37.0-53.0); Hemoglobin 10.6 g/dL (13.5-17.5); IMMATURE GRAN ABSOLUTE AUTO 0.02 K/mm3 (0.00-0.10); IMMATURE GRAN PERCENT AUTO 0 % (0-1); LYMPHOCYTES ABSOLUTE AUTO 1.02 K/mm3 (0.84-5.20); LYMPHOCYTES PERCENT AUTO 15 % (21-46); MONOCYTES ABSOLUTE AUTO 0.48 K/mm3 (0.16-1.47); MONOCYTES PERCENT AUTO 7 % (4-13); Mean Corpuscular HGB 25.4 pg (26.0-34.0); Mean Corpuscular HGB Conc 30.8 g/dL (31.5-36.5); Mean Corpuscular Volume 83 fL (80-100); Mean Platelet Volume 9.5 fL (9.1-12.4); NEUTROPHILS ABSOLUTE AUTO 4.76 K/mm3 (1.96-9.15); NEUTROPHILS PERCENT AUTO 71 % (41-73); Platelet Count 194 K/mm3 (150-400); RDW Coefficient Variation 17.1 % (11.7-14.2); RDW Standard Deviation 51.8 fL (35.1-46.3); Red Blood Cell Count 4.17 M/mm3 (4.30-5.90); White Blood Cell Count 6.68 K/mm3 (4.00-11.30)
[2022-04-10 05:27] LABS: Albumin/Globulin Ratio 0.8 (0.8-1.8); Bilirubin, Total 0.2 mg/dL (0.1-1.0); Bun/Creatinine Ratio 31.8 (12.0-20.0); Calcium, Blood 9.2 mg/dL (8.5-10.1); Creatinine, Blood 0.94 mg/dL (0.60-1.20); Globulin, Blood 3.7 g/dL (2.2-4.0); Potassium, Blood 4.1 mmol/L (3.5-5.5); Total Protein, Blood 6.7 g/dL (6.4-8.2)
== END 2022-04-10 09:20 | disposition home or self-care (01) ==
LOC: ER 04:40
PROVIDERS: Student in an Organized Health Care Education/Training Program
DX: E11.649 Type 2 diabetes mellitus with hypoglycemia without coma (principal); D64.9 Anemia, unspecified; E03.9 Hypothyroidism, unspecified; I10 Essential (primary) hypertension; I25.2 Old myocardial infarction; Z79.02 Long term (current) use of antithrombotics/antiplatelets; Z79.899 Other long term (current) drug therapy; Z79.4 Long term (current) use of insulin; Z88.2 Allergy status to sulfonamides; Z95.5 Presence of coronary angioplasty implant and graft
CPT/HCPCS: 36415; 71045; 80053; 82947; 85025; 93005; 93010; 96374; 99285-25

== ENCOUNTER 2022-04-26 16:00 | Emergency (ER) | payer OTHER ==
[~2022-04-26] VITALS: Ht 180.3 cm; Wt 82.5 kg
[2022-04-26 17:47] LABS: BASOPHILS ABSOLUTE AUTO 0.09 K/mm3 (0.00-0.23); BASOPHILS PERCENT AUTO 1 % (0-2); EOSINOPHILS ABSOLUTE AUTO 0.32 K/mm3 (0.00-0.68); EOSINOPHILS PERCENT AUTO 4 % (0-6); Hemoglobin 10.5 g/dL (13.5-17.5); IMMATURE GRAN ABSOLUTE AUTO 0.02 K/mm3 (0.00-0.10); IMMATURE GRAN PERCENT AUTO 0 % (0-1); LYMPHOCYTES ABSOLUTE AUTO 1.34 K/mm3 (0.84-5.20); LYMPHOCYTES PERCENT AUTO 16 % (21-46); MONOCYTES ABSOLUTE AUTO 0.54 K/mm3 (0.16-1.47); MONOCYTES PERCENT AUTO 7 % (4-13); Mean Corpuscular HGB 26.1 pg (26.0-34.0); Mean Corpuscular HGB Conc 31.8 g/dL (31.5-36.5); Mean Corpuscular Volume 82 fL (80-100); Mean Platelet Volume 9.7 fL (9.1-12.4); NEUTROPHILS ABSOLUTE AUTO 5.86 K/mm3 (1.96-9.15); NEUTROPHILS PERCENT AUTO 72 % (41-73); Platelet Count 249 K/mm3 (150-400); RDW Coefficient Variation 16.8 % (11.7-14.2); RDW Standard Deviation 50.3 fL (35.1-46.3); Red Blood Cell Count 4.03 M/mm3 (4.30-5.90); White Blood Cell Count 8.17 K/mm3 (4.00-11.30)
[2022-04-26 17:57] LABS: Albumin/Globulin Ratio 0.8 (0.8-1.8); Bilirubin, Total 0.2 mg/dL (0.1-1.0); Bun/Creatinine Ratio 29.4 (12.0-20.0); Creatinine, Blood 1.26 mg/dL (0.60-1.20); Globulin, Blood 3.9 g/dL (2.2-4.0); Total Protein, Blood 6.9 g/dL (6.4-8.2)
== END 2022-04-26 21:46 | disposition home or self-care (01) ==
LOC: ER 16:00
PROVIDERS: Physician Assistant
DX: S30.1XXA Contusion of abdominal wall, initial encounter (principal); T45.515A Adverse effect of anticoagulants, initial encounter; I10 Essential (primary) hypertension; E11.9 Type 2 diabetes mellitus without complications; E78.5 Hyperlipidemia, unspecified; E03.9 Hypothyroidism, unspecified; Z79.899 Other long term (current) drug therapy; Z79.84 Long term (current) use of oral hypoglycemic drugs; Z88.2 Allergy status to sulfonamides; Z86.73 Personal history of transient ischemic attack (TIA), and cerebral infarction without residual deficits; Z95.5 Presence of coronary angioplasty implant and graft; Z87.891 Personal history of nicotine dependence
CPT/HCPCS: 36415; 74177; 80053; 83690; 85025; Q9967

== ENCOUNTER 2022-12-12 12:02 | Inpatient (IN) | payer OTHER ==
[~2022-12-12] VITALS: Ht 175.3 cm; Wt 93.9 kg
[~2022-12-12 12:02] MED LIST changes: +Acetaminophen325 M1 PO; +GABA400 PO
[2022-12-12 13:23] LABS: BASOPHILS ABSOLUTE AUTO 0.07 K/mm3 (0.00-0.23); BASOPHILS PERCENT AUTO 1 % (0-2); EOSINOPHILS ABSOLUTE AUTO 0.07 K/mm3 (0.00-0.68); EOSINOPHILS PERCENT AUTO 1 % (0-6); Hematocrit 44.2 % (37.0-53.0); Hemoglobin 14.6 g/dL (13.5-17.5); IMMATURE GRAN ABSOLUTE AUTO 0.07 K/mm3 (0.00-0.10); IMMATURE GRAN PERCENT AUTO 1 % (0-1); LYMPHOCYTES ABSOLUTE AUTO 0.85 K/mm3 (0.84-5.20); LYMPHOCYTES PERCENT AUTO 7 % (21-46); MONOCYTES ABSOLUTE AUTO 0.89 K/mm3 (0.16-1.47); MONOCYTES PERCENT AUTO 7 % (4-13); Mean Corpuscular HGB 27.1 pg (26.0-34.0); Mean Corpuscular Volume 82 fL (80-100); Mean Platelet Volume 10.7 fL (9.1-12.4); NEUTROPHILS ABSOLUTE AUTO 10.73 K/mm3 (1.96-9.15); NEUTROPHILS PERCENT AUTO 85 % (41-73); Platelet Count 231 K/mm3 (150-400); RDW Standard Deviation 45.1 fL (35.1-46.3); Red Blood Cell Count 5.38 M/mm3 (4.30-5.90); White Blood Cell Count 12.68 K/mm3 (4.00-11.30)
[2022-12-12 13:42] LABS: Albumin, Blood 3.6 g/dL (3.4-5.0); Albumin/Globulin Ratio 0.9 (0.8-1.8); Bilirubin, Total 0.8 mg/dL (0.1-1.0); Bun/Creatinine Ratio 16.9 (12.0-20.0); Calcium, Blood 9.3 mg/dL (8.5-10.1); Creatinine, Blood 3.85 mg/dL (0.60-1.20); Globulin, Blood 4.2 g/dL (2.2-4.0); Potassium, Blood 5.1 mmol/L (3.5-5.5); Total Protein, Blood 7.8 g/dL (6.4-8.2)
[2022-12-12 14:52] LABS: International Normalized Ratio 1.04; Prothrombin Time Results 10.9 Sec (9.7-11.5)
[2022-12-13 06:06] LABS: Anion Gap 8 mmol/L (6-16); Blood Urea Nitrogen 70 mg/dL (8-24); Bun/Creatinine Ratio 14.8 (12.0-20.0); CO2, Blood 19 mmol/L (21-32); Calcium, Blood 8.2 mg/dL (8.5-10.1); Chloride, Blood 106 mmol/L (98-108); Creatinine, Blood 4.72 mg/dL (0.60-1.20); Glomerular Filtration Rate 13 (60-); Glucose, Blood 140 mg/dL (70-99); Magnesium, Blood 1.9 mg/dL (1.6-2.4); Phosphorus, Blood 5.7 mg/dL (2.5-4.9); Potassium, Blood 4.2 mmol/L (3.5-5.5); Sodium, Blood 133 mmol/L (136-145)
--- NOTE | 2022-12-13 06:50 | NUR ---
PATIENT ALERT AND ORIENTED, ROOM AIR, TELE, ADA DIET, HEMMOCCULT NEGATIVE, RENAL US COMPLETED, PALLIATIVE CONSULT IN, URINALYSIS SENT THIS AM, 20 RAC W/ NS AT 125CC/HR, NO EVENTS OVERNIGHT
[2022-12-13 10:46] LABS: Source, Urine Straight Cath
[2022-12-13 10:54] LABS: Appearance, Urine Clear (Clear); Blood, Urine Neg (Neg); Color, Urine Yellow (P-Yellow); Glucose Qualitative, Urine Neg (Neg); Ketones, Urine Neg (Neg); Leukocyte Esterase, Urine Neg (Neg); Nitrite, Urine Neg (Neg); Protein, Urine 2+ (Neg); Specific Gravity, Urine 1.025 (1.003-1.022); Urobilinogen, Urine NORM (Normal)
[2022-12-13 11:31] LABS: Bilirubin, Urine 1+ (Neg)
[2022-12-13 11:32] LABS: Amorphous Light (0-Heavy); Bacteria Not Seen /hpf; Hyaline Casts 0-2 /lpf (0-2); Red Blood Cells, Urine Not Seen /hpf (0-2); Squamous Epithelial Cells Few /hpf (Few); White Blood Cells, Urine Not Seen /hpf (0-5)
--- NOTE | 2022-12-13 19:00 | NUR ---
SHIFT SUMMARY- NO ACUTE EVENTS THIS SHIFT. PT CALM AND COOPERATIVE THIS SHIFT. CALLS APPROPRIATELY.
--- NOTE | 2022-12-14 05:43 | NUR ---
PATIENT ALERT AND ORIENTED, STARTED NEW PERIPHERAL IV DUE TO DISTAL OCCLUSION, SB ON TELE, ROOM AIR, NO EVENTS OVERNIGHT
[2022-12-14 05:55] LABS: Albumin, Blood 2.8 g/dL (3.4-5.0); Anion Gap 8 mmol/L (6-16); Blood Urea Nitrogen 79 mg/dL (8-24); Bun/Creatinine Ratio 13.5 (12.0-20.0); CO2, Blood 20 mmol/L (21-32); Chloride, Blood 108 mmol/L (98-108); Creatinine, Blood 5.84 mg/dL (0.60-1.20); Glomerular Filtration Rate 10 (60-); Glucose, Blood 137 mg/dL (70-99); Phosphorus, Blood 5.3 mg/dL (2.5-4.9); Potassium, Blood 3.9 mmol/L (3.5-5.5); Sodium, Blood 136 mmol/L (136-145)
--- NOTE | 2022-12-14 18:21 | NUR ---
SHIFT SUMMARY- PT CALM AND COOPERATIVE THIS SHIFT. NO PAIN REPORTED. NO ACUTE EVENTS. AAOX4.
[2022-12-15 05:26] LABS: Hematocrit 32.1 % (37.0-53.0); Hemoglobin 10.8 g/dL (13.5-17.5); Mean Corpuscular HGB 27.3 pg (26.0-34.0); Mean Corpuscular HGB Conc 33.6 g/dL (31.5-36.5); Mean Corpuscular Volume 81 fL (80-100); Mean Platelet Volume 10.7 fL (9.1-12.4); Platelet Count 164 K/mm3 (150-400); RDW Coefficient Variation 14.8 % (11.7-14.2); RDW Standard Deviation 43.8 fL (35.1-46.3); Red Blood Cell Count 3.96 M/mm3 (4.30-5.90); White Blood Cell Count 6.04 K/mm3 (4.00-11.30)
--- NOTE | 2022-12-15 05:37 | NUR ---
NO EVENTS OVERNIGHT. CONTINUE TO MONITOR
[2022-12-15 06:07] LABS: Albumin, Blood 2.9 g/dL (3.4-5.0); Anion Gap 9 mmol/L (6-16); Blood Urea Nitrogen 71 mg/dL (8-24); Bun/Creatinine Ratio 13.1 (12.0-20.0); CO2, Blood 19 mmol/L (21-32); Calcium, Blood 8.2 mg/dL (8.5-10.1); Chloride, Blood 111 mmol/L (98-108); Glomerular Filtration Rate 11 (60-); Glucose, Blood 190 mg/dL (70-99); Potassium, Blood 3.8 mmol/L (3.5-5.5); Sodium, Blood 139 mmol/L (136-145)
--- NOTE | 2022-12-15 18:11 | NUR ---
SHIFT SUMMARY- NO ACUTE EVENTS THIS SHIFT. PT IS CALM AND COOPERATIVE. INDEPENDENT IN ROOM. DRESSING CHANGED FROM WOUND ON LEFT HEEL TODAY. PT DENIES ANY PAIN/NAUSEA. PT STATES HIS HEART BURN HAS VASTLY IMPROVED SINCE HIS HOSPITAL STAY.
--- NOTE | 2022-12-16 04:46 | NUR ---
pt resting in bed, pt not c/o pain. pt ready to go to sleep after getting his night time meds. pt denied any needs. call light in reach.
[2022-12-16 06:55] LABS: Albumin, Blood 3.1 g/dL (3.4-5.0); Anion Gap 8 mmol/L (6-16); Blood Urea Nitrogen 62 mg/dL (8-24); Bun/Creatinine Ratio 14.1 (12.0-20.0); CO2, Blood 23 mmol/L (21-32); Calcium, Blood 8.7 mg/dL (8.5-10.1); Chloride, Blood 107 mmol/L (98-108); Creatinine, Blood 4.41 mg/dL (0.60-1.20); Glomerular Filtration Rate 14 (60-); Glucose, Blood 248 mg/dL (70-99); Potassium, Blood 3.7 mmol/L (3.5-5.5); Sodium, Blood 138 mmol/L (136-145)
--- NOTE | 2022-12-16 18:08 | NUR ---
SHIFT SUMMARY A&O X 4. VSS. PLEASANT & COOPERATIVE WITH ALL CARE. SHOWERED THIS AFTERNOON. DRESSING ON L HEEL CHANGED AFTER SHOWER. PT STATES HE'S LEAVING COMPRESSION SOCKS OFF FOR AWHILE. IS INDEPENDENT IN THE ROOM FOR RESTROOM USE. PLAN IS LIKELY DC HOME IN THE MORNING. RENAL LABS SLIGHTLY IMPROVED. GFR 14, CREAT 4.41.
--- NOTE | 2022-12-17 04:40 | NUR ---
SHIFT SUMMARY PATIENT HAD NO ACUTE CHANGES OBSERVED. AXOX 4 AND INDEPENDENT IN ROOM. PIV REMAINS INTACT. BRICK MAKER REPORTS SB W/BBB @ 55. CBG 159. VSS/AFEBRILE. DENIES CHEST PAIN, SOB, AND N/V. COOPERATIVE WITH CARE. CALL LIGHT IN REACH. BED IN LOWEST POSITION. WILL CONTINUE TO MONITOR UNTIL DAY SHIFT NURSE ASSUMES CARE.
[2022-12-17 06:11] LABS: Albumin, Blood 3.1 g/dL (3.4-5.0); Anion Gap 7 mmol/L (6-16); Blood Urea Nitrogen 51 mg/dL (8-24); Bun/Creatinine Ratio 15.8 (12.0-20.0); CO2, Blood 25 mmol/L (21-32); Calcium, Blood 8.8 mg/dL (8.5-10.1); Chloride, Blood 105 mmol/L (98-108); Creatinine, Blood 3.23 mg/dL (0.60-1.20); Glomerular Filtration Rate 20 (60-); Glucose, Blood 225 mg/dL (70-99); Phosphorus, Blood 3.6 mg/dL (2.5-4.9); Potassium, Blood 3.9 mmol/L (3.5-5.5); Sodium, Blood 137 mmol/L (136-145)
--- NOTE | 2022-12-17 06:30 | NUR ---
BP 170/80. PO APRESOLINE 10 MG GIVEN FOR SBP >160 BP 148/53 ON RECHECK. WCTM
[2022-12-17] MEDS ORDERED: METO5A PO (11:24)
--- NOTE | 2022-12-17 11:42 | NUR ---
DISCHARGE PATIENT TRANSPORTED VIA WHEELCHAIR TO PRIVATE VEHICLE. DISCHARGE INSTRUCTIONS EXPLAINED TO PATIENT. PATIENT STATED UNDERSTANDING. PACKET SENT WITH PATIENT. BELONGINGS SENT WITH PATIENT. IV X2 REMOVED BY KILN FEEDER 2 STUDENT WITHOUT DIFFICULTY. TELE REMOVED WITHOUT DIFFICULTY. MEDICATIONS FAXED TO PREFERRED PHARMACY. PATIENT TO SCHEDULE FOLLOW UP APPOINTMENT WITH PCP. DR. ALMEIDA OFFICE TO CALL PATIENT TO SCHEDULE FOLLOW UP APPOINTMENT.
[2022-12-17 14:11] LABS: M-SPIKE, % Not Observed % (Not Observed)
--- NOTE | 2022-12-17 17:00 | NUR ---
STUDENT THIS RN WAS PRESENT DURING THE ASSISTANT ASSOCIATE FULL PROFESSOR STUDENT DOING ASSESSMENT OF PATIENT. THIS RN AGREES WITH ASSESSMENT AND ASSISTED ASSISTANT ASSOCIATE FULL PROFESSOR STUDENT TO CHART SHIFT ASSESSMENT.
[2022-12-18 15:11] LABS: A/G RATIO 1.1 (0.7-1.7); ALBUMIN 3.1 g/dL (2.9-4.4); ALPHA-1-GLOBULIN 0.2 g/dL (0.0-0.4); ALPHA-2-GLOBULIN 0.9 g/dL (0.4-1.0); BETA GLOBULIN 0.9 g/dL (0.7-1.3); GAMMA GLOBULIN 0.7 g/dL (0.4-1.8); GLOBULIN, TOTAL 2.7 g/dL (2.2-3.9); M-SPIKE Not Observed g/dL (Not Observed); PROTEIN, TOTAL, SERUM 5.8 g/dL (6.0-8.5)
== END 2022-12-17 11:42 | disposition home or self-care (01) | DRG 683 ==
LOC: ER 12:02 → MEDS 16:08 → ER 16:08 → MEDS 16:08
PROVIDERS: Internal Medicine Nephrology; Student in an Organized Health Care Education/Training Program; ADMIT Internal Medicine
DX: N17.0 Acute kidney failure with tubular necrosis (principal); E87.1 Hypo-osmolality and hyponatremia; R00.1 Bradycardia, unspecified; E11.51 Type 2 diabetes mellitus with diabetic peripheral angiopathy without gangrene; E11.42 Type 2 diabetes mellitus with diabetic polyneuropathy; K21.9 Gastro-esophageal reflux disease without esophagitis; E03.9 Hypothyroidism, unspecified; I28.9 Disease of pulmonary vessels, unspecified; E78.5 Hyperlipidemia, unspecified; N18.30 Chronic kidney disease, stage 3 unspecified; I12.9 Hypertensive chronic kidney disease with stage 1 through stage 4 chronic kidney disease, or unspecified chronic kidney disease; E11.22 Type 2 diabetes mellitus with diabetic chronic kidney disease; I25.10 Atherosclerotic heart disease of native coronary artery without angina pectoris; B08.4 Enteroviral vesicular stomatitis with exanthem; Z79.01 Long term (current) use of anticoagulants; Z90.49 Acquired absence of other specified parts of digestive tract; Z86.718 Personal history of other venous thrombosis and embolism; Z88.2 Allergy status to sulfonamides; Z79.899 Other long term (current) drug therapy; Z79.02 Long term (current) use of antithrombotics/antiplatelets; Z79.4 Long term (current) use of insulin; Z79.811 Long term (current) use of aromatase inhibitors; Z86.73 Personal history of transient ischemic attack (TIA), and cerebral infarction without residual deficits; I25.2 Old myocardial infarction; Z85.51 Personal history of malignant neoplasm of bladder; Z95.5 Presence of coronary angioplasty implant and graft; Z98.890 Other specified postprocedural states; Z89.432 Acquired absence of left foot
CPT/HCPCS: 36415; 76770; 80053; 80069; 81001; 82550; 82570; 82947; 83036; 83735; 84156; 84165; 84166; 84300; 84436; 85025; 85027; 85610; 85730; 86850; 86900; 86901; 93005; 93010; 96360; 99285-25; A9270; G0378; J1815; J7030

== ENCOUNTER 2023-04-23 14:41 | Emergency (ER) | payer OTHER ==
[~2023-04-23] VITALS: Ht 177.8 cm; Wt 81.7 kg
[~2023-04-23 14:41] MED LIST changes: +METO5A PO
[2023-04-23 15:00] VITALS: BP 101/60
== END 2023-04-23 15:07 | disposition home or self-care (01) ==
LOC: ER 14:41
DX: R42 Dizziness and giddiness (principal); T67.5XXA Heat exhaustion, unspecified, initial encounter; E11.9 Type 2 diabetes mellitus without complications; E03.9 Hypothyroidism, unspecified; I10 Essential (primary) hypertension; I25.2 Old myocardial infarction; Z86.73 Personal history of transient ischemic attack (TIA), and cerebral infarction without residual deficits; Z85.51 Personal history of malignant neoplasm of bladder; Z88.2 Allergy status to sulfonamides; Z79.02 Long term (current) use of antithrombotics/antiplatelets; Z79.01 Long term (current) use of anticoagulants; Z79.4 Long term (current) use of insulin; Z79.899 Other long term (current) drug therapy
CPT/HCPCS: 99283

== ENCOUNTER 2023-05-04 13:21 | Observation (INO) | payer OTHER ==
[~2023-05-04] VITALS: Ht 180.3 cm; Wt 83.5 kg
[2023-05-04 14:12] LABS: BASOPHILS ABSOLUTE AUTO 0.04 K/mm3 (0.00-0.23); BASOPHILS PERCENT AUTO 0 % (0-2); EOSINOPHILS ABSOLUTE AUTO 0.08 K/mm3 (0.00-0.68); EOSINOPHILS PERCENT AUTO 1 % (0-6); Hemoglobin 13.6 g/dL (13.5-17.5); IMMATURE GRAN ABSOLUTE AUTO 0.02 K/mm3 (0.00-0.10); IMMATURE GRAN PERCENT AUTO 0 % (0-1); LYMPHOCYTES ABSOLUTE AUTO 1.17 K/mm3 (0.84-5.20); LYMPHOCYTES PERCENT AUTO 13 % (21-46); MONOCYTES ABSOLUTE AUTO 0.37 K/mm3 (0.16-1.47); MONOCYTES PERCENT AUTO 4 % (4-13); Mean Corpuscular HGB 27.3 pg (26.0-34.0); Mean Corpuscular HGB Conc 33.2 g/dL (31.5-36.5); Mean Corpuscular Volume 82 fL (80-100); Mean Platelet Volume 10.6 fL (9.1-12.4); NEUTROPHILS ABSOLUTE AUTO 7.49 K/mm3 (1.96-9.15); NEUTROPHILS PERCENT AUTO 82 % (41-73); Platelet Count 250 K/mm3 (150-400); RDW Coefficient Variation 13.8 % (11.7-14.2); RDW Standard Deviation 41.2 fL (35.1-46.3); Red Blood Cell Count 4.98 M/mm3 (4.30-5.90); White Blood Cell Count 9.17 K/mm3 (4.00-11.30)
[2023-05-04 14:18] LABS: International Normalized Ratio 1.01; Prothrombin Time Results 10.6 Sec (9.7-11.5)
[2023-05-04 14:23] LABS: Albumin, Blood 3.4 g/dL (3.4-5.0); Albumin/Globulin Ratio 0.9 (0.8-1.8); Bilirubin, Total 0.5 mg/dL (0.1-1.0); Bun/Creatinine Ratio 22.8 (12.0-20.0); Calcium, Blood 9.3 mg/dL (8.5-10.1); Creatinine, Blood 1.23 mg/dL (0.60-1.20); Globulin, Blood 3.7 g/dL (2.2-4.0); Potassium, Blood 3.2 mmol/L (3.5-5.5); Total Protein, Blood 7.1 g/dL (6.4-8.2)
[2023-05-04 19:30] VITALS: BP 153/54
--- NOTE | 2023-05-04 22:50 | NUR ---
LATE ENTRY PT ADMIT 15 MIN BEFORE MY SHIFT. PT PLACED ON TELE. PER RADIOLOGIC TECHNOLOGIST CHIEF PT HR RANGING FROM 30 TO 50. PER PT, THAT IS NORMAL FOR HIM. NOTIFIED DR. DUMONT.
[2023-05-05] MEDS ORDERED: Aspir 8181 MG PO (02:27)
[2023-05-05] MEDS ORDERED: DOXY100 PO (02:30)
[2023-05-05] MEDS ORDERED: SERT100 PO (02:56)
[2023-05-05] MEDS ORDERED: FAMO20 PO (03:01)
[2023-05-05 05:06] LABS: BASOPHILS ABSOLUTE AUTO 0.06 K/mm3 (0.00-0.23); BASOPHILS PERCENT AUTO 1 % (0-2); EOSINOPHILS ABSOLUTE AUTO 0.26 K/mm3 (0.00-0.68); EOSINOPHILS PERCENT AUTO 3 % (0-6); Hematocrit 40.4 % (37.0-53.0); Hemoglobin 13.2 g/dL (13.5-17.5); IMMATURE GRAN ABSOLUTE AUTO 0.02 K/mm3 (0.00-0.10); IMMATURE GRAN PERCENT AUTO 0 % (0-1); LYMPHOCYTES ABSOLUTE AUTO 1.58 K/mm3 (0.84-5.20); LYMPHOCYTES PERCENT AUTO 21 % (21-46); MONOCYTES ABSOLUTE AUTO 0.54 K/mm3 (0.16-1.47); MONOCYTES PERCENT AUTO 7 % (4-13); Mean Corpuscular HGB 27.1 pg (26.0-34.0); Mean Corpuscular HGB Conc 32.7 g/dL (31.5-36.5); Mean Corpuscular Volume 83 fL (80-100); Mean Platelet Volume 10.8 fL (9.1-12.4); NEUTROPHILS PERCENT AUTO 68 % (41-73); Platelet Count 243 K/mm3 (150-400); RDW Standard Deviation 42.3 fL (35.1-46.3); Red Blood Cell Count 4.87 M/mm3 (4.30-5.90); White Blood Cell Count 7.56 K/mm3 (4.00-11.30)
--- NOTE | 2023-05-05 05:06 | NUR ---
SHIFT SUMMARY ALERT AND ORIENTED X4. PT BRADYCARDIC ALL SHIFT. 37-50. PT STATES THIS IS HIS NORMAL. CALM AND COOPERATIVE. DENIES ANY CHEST PAIN. NPO STARTED AT 0000. NO ACUTE CHANGES. INDEPENDENT WITH CANE. ABLE TO MAKE NEEDS KNOWN.
[2023-05-05 05:11] VITALS: BP 143/49
--- NOTE | 2023-05-05 05:25 | NUR ---
PT REPORTING NAUSEA. HE REPORTS THIS IS NEW. TREATED PER EMAR. PT DENIES CHEST PAIN, TELE REPORTS SINUS JAMIN 47.
[2023-05-05 06:55] LABS: Alanine Aminotransfer (ALT/SGP 32 U/L (12-78); Albumin, Blood 3.3 g/dL (3.4-5.0); Albumin/Globulin Ratio 0.9 (0.8-1.8); Alk Phos 96 U/L (50-136); Anion Gap 7 mmol/L (6-16); Aspartate Aminotrans (AST/SGOT 34 U/L (12-37); Bilirubin, Total 0.4 mg/dL (0.1-1.0); Blood Urea Nitrogen 28 mg/dL (8-24); Bun/Creatinine Ratio 24.1 (12.0-20.0); CHOL/HDL RATIO 5.7; CO2, Blood 25 mmol/L (21-32); Calcium, Blood 9.2 mg/dL (8.5-10.1); Chloride, Blood 109 mmol/L (98-108); Cholesterol 198 mg/dL (50-200); Creatinine, Blood 1.16 mg/dL (0.60-1.20); Globulin, Blood 3.5 g/dL (2.2-4.0); Glomerular Filtration Rate 69 (60-); Glucose, Blood 122 mg/dL (70-99); HDL Cholesterol 35 mg/dL (>39); LDL/HDL RATIO 3.6; Low Density Lipoprotein Chol 126 mg/dL (0-110); Potassium, Blood 3.4 mmol/L (3.5-5.5); Sodium, Blood 141 mmol/L (136-145); Total Protein, Blood 6.8 g/dL (6.4-8.2); Triglycerides 187 mg/dL (30-160); Very Low Density Lipoprot Chol 37 mg/dL (6-32)
[2023-05-05 07:26] VITALS: BP 161/72
[2023-05-05 08:11] LABS: HEMOGLOBIN A1C 11.8 % (4.8-5.6)
[2023-05-05 16:20] VITALS: BP 114/64
--- NOTE | 2023-05-05 18:37 | NUR ---
PT DISCHARGED AT 1835. PT HAD ALL PAPERWORK REVIEWED AND EDUATIONAL MATERIAL SENT WITH PT. NO DISTRESS NOTED. PERSONAL ITEMS TAKEN WITH PT AND HE WAS ESCORTED OUT TO [facility] VIA WHEELCHAIR. FRIEND TO TRANSPORT IN CAR.
== END 2023-05-05 18:33 | disposition home or self-care (01) ==
LOC: ER 13:21 → MEDS 13:22 → ENPENDDIS 05-05 16:47 → EDPENDDISDT 05-05 16:47 → EDPENDDISTM 05-05 16:47 → MEDS 05-05 18:33
PROVIDERS: Emergency Medicine; ADMIT Student in an Organized Health Care Education/Training Program
DX: R07.89 Other chest pain (principal); R00.1 Bradycardia, unspecified; I10 Essential (primary) hypertension; E78.5 Hyperlipidemia, unspecified; E03.9 Hypothyroidism, unspecified; E87.6 Hypokalemia; Z86.718 Personal history of other venous thrombosis and embolism; E11.42 Type 2 diabetes mellitus with diabetic polyneuropathy; I25.10 Atherosclerotic heart disease of native coronary artery without angina pectoris; Z95.5 Presence of coronary angioplasty implant and graft; Z79.02 Long term (current) use of antithrombotics/antiplatelets; Z79.4 Long term (current) use of insulin; Z79.01 Long term (current) use of anticoagulants; I45.10 Unspecified right bundle-branch block; Z87.891 Personal history of nicotine dependence; Z88.2 Allergy status to sulfonamides
CPT/HCPCS: 71045; 78452; 80053; 80061; 82947; 83036; 83735; 84443; 84484; 85025; 85610; 93005; 93010; 93017; 96372; 99285-25; A9270; A9500; G0378; J0706; J1650; J1815; J2785

== ENCOUNTER 2023-09-04 13:41 | Emergency (ER) | payer OTHER ==
[~2023-09-04] VITALS: Ht 177.8 cm; Wt 84.8 kg
[~2023-09-04 13:41] MED LIST changes: +Aspir 8181 MG PO; +DOXY100 PO; +FAMO20 PO
[2023-09-04 13:53] VITALS: BP 110/62
[2023-09-04 14:11] LABS: Base Excess Venous -11.5 mmol/L; PCO2 Venous 36.5 mmHg (38-42); pH Blood Venous 7.25 (7.34-7.37)
[2023-09-04 14:17] LABS: BASOPHILS ABSOLUTE AUTO 0.06 K/mm3 (0.00-0.23); BASOPHILS PERCENT AUTO 1 % (0-2); EOSINOPHILS ABSOLUTE AUTO 0.01 K/mm3 (0.00-0.68); EOSINOPHILS PERCENT AUTO 0 % (0-6); Hematocrit 43.9 % (37.0-53.0); IMMATURE GRAN ABSOLUTE AUTO 0.03 K/mm3 (0.00-0.10); IMMATURE GRAN PERCENT AUTO 0 % (0-1); LYMPHOCYTES ABSOLUTE AUTO 0.78 K/mm3 (0.84-5.20); LYMPHOCYTES PERCENT AUTO 8 % (21-46); MONOCYTES ABSOLUTE AUTO 0.27 K/mm3 (0.16-1.47); MONOCYTES PERCENT AUTO 3 % (4-13); Mean Corpuscular HGB Conc 31.9 g/dL (31.5-36.5); Mean Corpuscular Volume 88 fL (80-100); Mean Platelet Volume 10.8 fL (9.1-12.4); NEUTROPHILS ABSOLUTE AUTO 8.97 K/mm3 (1.96-9.15); NEUTROPHILS PERCENT AUTO 89 % (41-73); Platelet Count 261 K/mm3 (150-400); RDW Coefficient Variation 14.7 % (11.7-14.2); White Blood Cell Count 10.12 K/mm3 (4.00-11.30)
[2023-09-04 14:33] LABS: Albumin, Blood 3.7 g/dL (3.4-5.0); Albumin/Globulin Ratio 0.9 (0.8-1.8); Bilirubin, Total 0.8 mg/dL (0.1-1.0); Bun/Creatinine Ratio 20.2 (12.0-20.0); Calcium, Blood 8.9 mg/dL (8.5-10.1); Creatinine, Blood 1.14 mg/dL (0.60-1.20); Potassium, Blood 4.2 mmol/L (3.5-5.5); Total Protein, Blood 7.7 g/dL (6.4-8.2)
[2023-09-04] MEDS ORDERED: ONDA4ODT MM (16:33)
[2023-09-04 17:16] LABS: Source, Urine Clean Catch
[2023-09-04 17:24] LABS: Bilirubin, Urine Neg (Neg); Blood, Urine Neg (Neg); Color, Urine Yellow (P-Yellow); Glucose Qualitative, Urine 4+ (Neg); Ketones, Urine 4+ (Neg); Leukocyte Esterase, Urine Neg (Neg); Nitrite, Urine Neg (Neg); Protein, Urine 2+ (Neg); Urobilinogen, Urine NORM (Normal)
[2023-09-04 17:45] LABS: Appearance, Urine Hazy (Clear); Bacteria Rare /hpf; Red Blood Cells, Urine 0-2 /hpf (0-2); Squamous Epithelial Cells Few /hpf (Few); White Blood Cells, Urine 0-2 /hpf (0-5)
[2023-09-04 17:46] LABS: Hyaline Casts 0-2 /lpf (0-2)
[2023-11-04] MEDS ORDERED: ONDA4ODT MM (13:19)
== END 2023-09-04 17:45 | disposition home or self-care (01) ==
LOC: ER 13:41
PROVIDERS: Student in an Organized Health Care Education/Training Program
DX: T73.0XXA Starvation, initial encounter (principal); E11.10 Type 2 diabetes mellitus with ketoacidosis without coma; E11.65 Type 2 diabetes mellitus with hyperglycemia; E86.0 Dehydration; E11.40 Type 2 diabetes mellitus with diabetic neuropathy, unspecified; Z88.2 Allergy status to sulfonamides; Z79.899 Other long term (current) drug therapy; Z79.4 Long term (current) use of insulin; E03.9 Hypothyroidism, unspecified; I10 Essential (primary) hypertension; I25.2 Old myocardial infarction; I25.10 Atherosclerotic heart disease of native coronary artery without angina pectoris; Z87.891 Personal history of nicotine dependence
CPT/HCPCS: 71046; 80053; 81001; 82010; 82803; 82947; 85025; 96361; 96374; 99284-25; A9270; J1815; J2405; J7030

== ENCOUNTER 2024-04-30 14:55 | Observation (INO) | payer OTHER ==
[~2024-04-30] VITALS: Ht 177.8 cm; Wt 76.3 kg
[~2024-04-30 14:55] MED LIST changes: +ONDA4ODT MM
[2024-04-30] MEDS ORDERED: Ondansetron HCl 2 MG / ML 2ML Vial IV PRN ×2 (15:15→16:50)
[2024-04-30 15:20] LABS: BASOPHILS ABSOLUTE AUTO 0.07 K/mm3 (0.00-0.23); BASOPHILS PERCENT AUTO 1 % (0-2); EOSINOPHILS ABSOLUTE AUTO 0.02 K/mm3 (0.00-0.68); EOSINOPHILS PERCENT AUTO 0 % (0-6); Hematocrit 41.6 % (37.0-53.0); Hemoglobin 13.9 g/dL (13.5-17.5); IMMATURE GRAN ABSOLUTE AUTO 0.04 K/mm3 (0.00-0.10); IMMATURE GRAN PERCENT AUTO 1 % (0-1); LYMPHOCYTES ABSOLUTE AUTO 0.74 K/mm3 (0.84-5.20); LYMPHOCYTES PERCENT AUTO 9 % (21-46); MONOCYTES ABSOLUTE AUTO 0.44 K/mm3 (0.16-1.47); MONOCYTES PERCENT AUTO 5 % (4-13); Mean Corpuscular HGB 28.3 pg (26.0-34.0); Mean Corpuscular HGB Conc 33.4 g/dL (31.5-36.5); Mean Corpuscular Volume 85 fL (80-100); Mean Platelet Volume 10.5 fL (9.1-12.4); NEUTROPHILS ABSOLUTE AUTO 7.34 K/mm3 (1.96-9.15); NEUTROPHILS PERCENT AUTO 85 % (41-73); Platelet Count 292 K/mm3 (150-400); RDW Coefficient Variation 14.3 % (11.7-14.2); RDW Standard Deviation 43.6 fL (35.1-46.3); Red Blood Cell Count 4.92 M/mm3 (4.30-5.90); White Blood Cell Count 8.65 K/mm3 (4.00-11.30)
[2024-04-30 15:52] LABS: Albumin, Blood 3.7 g/dL (3.4-5.0); Albumin/Globulin Ratio 0.9 (0.8-1.8); Bilirubin, Total 0.8 mg/dL (0.1-1.0); Bun/Creatinine Ratio 24.8 (12.0-20.0); Calcium, Blood 8.9 mg/dL (8.5-10.1); Creatinine, Blood 1.41 mg/dL (0.60-1.20); Globulin, Blood 3.9 g/dL (2.2-4.0); Total Protein, Blood 7.6 g/dL (6.4-8.2)
[2024-04-30 16:49] LABS: Bicarbonate Venous 14.6 mmol/L (24.0-30.0); PCO2 Venous 31.6 mmHg (38-42); pH Blood Venous 7.24 (7.34-7.37)
[2024-04-30] MEDS ORDERED: FentaNYL Citrate 50 MCG/ML 2 ML Injection IV PRN (16:50)
[2024-04-30] MEDS ORDERED: Nitroglycerin 0.4 MG SUBL SL PRN (16:50)
[2024-04-30] MEDS ORDERED: NS 1,000 ML IV SCH (16:50)
[2024-04-30] MEDS ORDERED: Enoxaparin 40 MG/0.4 ML SYR SC SCH (17:00)
[2024-04-30] MEDS ORDERED: Insulin Human Regular 100 UNIT in NS 100 ML IV SCH (17:05)
[2024-04-30] MEDS ORDERED: NS 1,000 ML IV ONE (17:08)
[2024-04-30] MEDS ORDERED: Mag Hydrox/Al Hydrox/Simeth 18 ML,Lidocaine 2% Viscous Soln 9 ML,Atropine/Scopalam/Hyos... PO PRN (17:25)
[2024-04-30 18:07] VITALS: BP 142/123
[2024-04-30 18:41] LABS: Bun/Creatinine Ratio 26.1 (12.0-20.0); Calcium, Blood 8.5 mg/dL (8.5-10.1); Creatinine, Blood 1.34 mg/dL (0.60-1.20); Potassium, Blood 4.6 mmol/L (3.5-5.5)
--- NOTE | 2024-04-30 18:48 | NUR ---
ADMIT PT ARRIVED TO ICU 2 AND WAS ABLE TO STAND AND TRANSFER HIMSELF TO THE BED. PT ALERT AND ORIENTED. NS INFUSING. BLOOD SUGAR CHECKED AND INSULIN GTT STARTED PER ORDERS. PT SIPPING ON WATER UPON ARRIVAL. DENIES ANY WORSENING OF NAUSEA. PLAN OF CARE EXPLAINED TO PT AND HE VERBALIZED UNDERSTANDING.
--- NOTE | 2024-04-30 19:00 | NUR ---
ASSUMED CARE OF PATIENT AT 1900. REPORT RECEIVED FROM MONET New RN. PT RESTING IN BED, INSULIN INFUSING TO LAC AT 3 U/KG/HR, NS AT 75 mL/HR. DENIES CP, N/V. BP 164/65, HR 56. NO ACUTE NEEDS IDENTIFED AT THIS TIME. SEE SHIFT ASSESSMENT FOR FULL DETAILS.
[2024-04-30 20:00] VITALS: BP 134/45
[2024-04-30 21:00] VITALS: BP 132/49
[2024-04-30 22:00] VITALS: BP 149/47
[2024-04-30] MEDS ORDERED: D5W-1/2NS 1,000 ML IV SCH (22:25)
[2024-04-30 23:09] LABS: Bun/Creatinine Ratio 28.1 (12.0-20.0); Calcium, Blood 8.5 mg/dL (8.5-10.1); Creatinine, Blood 1.21 mg/dL (0.60-1.20); Potassium, Blood 3.7 mmol/L (3.5-5.5)
[2024-04-30] MEDS ORDERED: Acetaminophen 325 MG TABLET PO PRN (23:30)
[2024-05-01] VITALS (14 sets, daily range): BP systolic 109–175; BP diastolic 41–95
[2024-05-01 00:28] LABS: Anti-Xa UFH, PHA Monitoring 0.48 IU/mL; Prothrombin Time Results 10.7 Sec (9.7-11.5)
[2024-05-01] MEDS ORDERED: Heparin Sodium,Porcine/0.5 NS 500 ML IV SCH (00:35)
[2024-05-01] MEDS ORDERED: Lactated Ringer's 500 ML IV ONE (01:00)
[2024-05-01 03:41] LABS: BASOPHILS ABSOLUTE AUTO 0.07 K/mm3 (0.00-0.23); BASOPHILS PERCENT AUTO 1 % (0-2); EOSINOPHILS ABSOLUTE AUTO 0.17 K/mm3 (0.00-0.68); EOSINOPHILS PERCENT AUTO 2 % (0-6); Hematocrit 35.5 % (37.0-53.0); Hemoglobin 11.9 g/dL (13.5-17.5); IMMATURE GRAN ABSOLUTE AUTO 0.03 K/mm3 (0.00-0.10); IMMATURE GRAN PERCENT AUTO 0 % (0-1); LYMPHOCYTES ABSOLUTE AUTO 1.44 K/mm3 (0.84-5.20); LYMPHOCYTES PERCENT AUTO 18 % (21-46); MONOCYTES ABSOLUTE AUTO 0.71 K/mm3 (0.16-1.47); MONOCYTES PERCENT AUTO 9 % (4-13); Mean Corpuscular HGB 28.2 pg (26.0-34.0); Mean Corpuscular HGB Conc 33.5 g/dL (31.5-36.5); Mean Corpuscular Volume 84 fL (80-100); Mean Platelet Volume 10.1 fL (9.1-12.4); NEUTROPHILS PERCENT AUTO 71 % (41-73); Platelet Count 217 K/mm3 (150-400); RDW Coefficient Variation 14.1 % (11.7-14.2); RDW Standard Deviation 43.2 fL (35.1-46.3); Red Blood Cell Count 4.22 M/mm3 (4.30-5.90); White Blood Cell Count 8.22 K/mm3 (4.00-11.30)
[2024-05-01 04:05] LABS: Albumin, Blood 3.2 g/dL (3.4-5.0); Bilirubin, Total 0.4 mg/dL (0.1-1.0); Bun/Creatinine Ratio 31.4 (12.0-20.0); Calcium, Blood 8.3 mg/dL (8.5-10.1); Creatinine, Blood 1.05 mg/dL (0.60-1.20); Globulin, Blood 3.1 g/dL (2.2-4.0); Potassium, Blood 3.6 mmol/L (3.5-5.5); Total Protein, Blood 6.3 g/dL (6.4-8.2)
--- NOTE | 2024-05-01 05:52 | NUR ---
SHIFT SUMMARY PT REMAINED ALERT AND ORIENTED X 4 T/O ENTIRETY OF SHIFT. ABLE TO FOLLOW COMMANDS, MAKE PURPOSEFUL MOVEMENTS, AND MAKE NEEDS KNOWN. AFEBRILE AND DENIES PAIN. CONTINOUS CARDIAC MONITORING IN PLACE SHOWS SB-SR WITH HR IN 40'S-60'S. SBP 110'S-140'S. RECEIVED LR BOLUS FOR LOW DIASTOLIC BP'S. ON ROOM AIR WITH O2 SATURATIONS > 92%. NPO. NO BM THIS SHIFT. DENIES N/V. NO URINE OUT THIS SHIFT. TOLERATED SIPS OF WATER WELL. PG TO HAILY INFUSING INSULIN AT 1 U/HR AND D5 1/2 NS. PIV TO LAC INFUSING HEPARIN AT 15 U/KG/HR. WILL CONTINUE TO MONITOR AND REPORT TO ONCOMING RN.
[2024-05-01] MEDS ORDERED: Levothyroxine Sodium 0.175 MG TAB PO SCH (06:00)
[2024-05-01] MEDS ORDERED: Insulin NPH 100 Unit / ML 10ML Vial SC ONE (08:00)
[2024-05-01] MEDS ORDERED: Dose Adjust by Pharmacy XX STA ×2 (08:37→15:05)
[2024-05-01 08:43] LABS: Bun/Creatinine Ratio 30.7 (12.0-20.0); Calcium, Blood 8.2 mg/dL (8.5-10.1); Creatinine, Blood 1.01 mg/dL (0.60-1.20); Potassium, Blood 3.6 mmol/L (3.5-5.5)
[2024-05-01] MEDS ORDERED: Sertraline HCl 50 MG Tab PO SCH (09:00)
[2024-05-01] MEDS ORDERED: Famotidine 20 MG Tab PO SCH (09:00)
[2024-05-01] MEDS ORDERED: Clopidogrel Bisulfate 75 MG Tab PO SCH (09:00)
[2024-05-01] MEDS ORDERED: Aminophylline 250MG / 10ML 10 ML Vial ONE (11:19)
[2024-05-01] MEDS ORDERED: Regadenoson 0.4 MG/5 ML SYRINGE ONE (11:19)
--- NOTE | 2024-05-01 12:45 | NUR ---
REASSESSMENT PT HAS BEEN ALERT AND ORIENTED THIS MORNING. LNGS ARE CLEAR, RA, SR/SB WITH RATE INT HE 50-60S, BP STABLE. NO COMPLAINTS OF NAUSEA. INSULIN GTT STOPPED AFTER LONG ACTING INSULIN GIVEN. PT REMAINED NPO FOR STRESS TEST, BUT DIET ORDERED FOR AFTER. PT HAVING STRESS TEST DONE CURRENTLY.
[2024-05-01] MEDS ORDERED: Heparin Sodium 5000 Units/ML 1ML MDV IV ONE (15:10)
[2024-05-01] MEDS ORDERED: Calcium Carbon500 MG PO (15:28)
[2024-05-01] MEDS ORDERED: HUMULIN R100 UNIT/2 SC (15:30)
--- NOTE | 2024-05-01 16:20 | NUR ---
DISCHARGE DR. SWANSON CAME AND SAW PT THIS AFTERNOON AFTER HIS STRESS TEST AND OK'D FOR HIM TO GO HOME. PT GIVEN DC INSTRUCTIONS REGARDING MEDICATIONS, FOLLOW UP APPOINTMENTS, DIET. PT GIVEN SCRIPT FOR NEW GLUCOMETER AND INFORMATION ON MEDIUM SLIDING SCALE. PT VERBALIZED UNDERSTANDING. PT ABLE TO DRESS HIMSELF, IVS REMOVED. PT CALLED HIS SISTER WHO CAME TO PICK HIM UP. PT ASSISSTED TO THE EXIT VIA WC. ALL BELONGINGS SENT HOME WITH PT.
[2024-05-01] MEDS ORDERED: Atorvastatin 40 MG Tab PO SCH (21:00)
== END 2024-05-01 16:07 | disposition home or self-care (01) ==
LOC: ER 14:55 → ICUE 14:56
PROVIDERS: Emergency Medicine; ADMIT Internal Medicine
DX: R07.89 Other chest pain (principal); E11.10 Type 2 diabetes mellitus with ketoacidosis without coma; E11.40 Type 2 diabetes mellitus with diabetic neuropathy, unspecified; E11.51 Type 2 diabetes mellitus with diabetic peripheral angiopathy without gangrene; E03.9 Hypothyroidism, unspecified; I10 Essential (primary) hypertension; I25.10 Atherosclerotic heart disease of native coronary artery without angina pectoris; I25.2 Old myocardial infarction; Z86.73 Personal history of transient ischemic attack (TIA), and cerebral infarction without residual deficits; Z95.818 Presence of other cardiac implants and grafts; Z87.891 Personal history of nicotine dependence; Z88.2 Allergy status to sulfonamides; Z79.01 Long term (current) use of anticoagulants; Z79.4 Long term (current) use of insulin; Z79.890 Hormone replacement therapy; Z79.899 Other long term (current) drug therapy
CPT/HCPCS: 36415; 71045; 78452; 80048; 80053; 81001; 82010; 82803; 82947; 83690; 83880; 84484; 85025; 85520; 85610; 85730; 93017; 96361; 96372; 96374; 96375; 96376; 99285-25; A9270; A9500; C1751; G0378; J0280; J1644; J1650; J1815; J2405; J2785; J7030; J7042; J7120